=== PATIENT | male | born 1950 | race African-American/Black ===

== ENCOUNTER 2021-02-26 12:59 | Emergency (ER) | payer OTHER ==
--- OUTSIDE RECORDS SUMMARY | 2021-02-26 13:04 | XMS REPORT | Continuity of Care Document ---
:1950 Author Organization [facility] t Address [address] [place] [address] Care Team Providers Name Role Phone JILLIAN, A Attending Clinician Unavailable BRUNA Attending Clinician Unavailable ELI, A Attending Clinician Unavailable Doctor Unassigned, Name Attending Clinician Unavailable CROW Attending Clinician Unavailable Crow CARIAS Attending Clinician 2, Lab Attending Clinician Unavailable Rm, Surg Spec Procedure Attending Clinician Unavailable Irene HERZOG Attending Clinician Unavailable Bruna CARIAS Attending Clinician Yessica RINCON Attending Clinician Unavailable Lesa Attending Clinician CELY Attending Clinician Unavailable Payers Payer Name Policy Type Policy Number Effective Date Expiration Date S césar [facility] [id number] 2017 DUAL COMPLETE HMO 00:00:00 [facility] [id number] 2020 00:00:00 MEDICAID [place] [id number] 2016 00:00:00 [facility] [id number] 2019 DUAL COMPLETE 00:00:00 CHOICE Problems Condition Condition Condition Status Onset Resolution Last Treating Co mments Source Name Details Category Date Date Treatment Clinician Date Claudicati Claudicati Disease Active Overview : Univers on in on in 05-29 Added ity of peripheral peripheral 00:00: automatic [place] vascular vascular 00 ally from Med ical disease disease request Branch for surgery [id number] Allergies, Adverse Reactions, Alerts Allergy Allergy Status Severity Reaction(s) Onset Inactive Treating Comm ents Source Name Type Date Date Clinician NO KNOWN Drug Active [facility] ALLERGIE Class [facility] [place] [facility] Social History Social Habit Start Date Stop Date Quantity Comments Source Sex Assigned At [facility] Medical Branch Exposure to Not sure [facility] SARS-CoV-2 (event) Medica l Branch Tobacco use and 2020-02-03 2020-02-03 Never used [facility] exposure 00:00:00 00:00:00 Medical Branch Smoking Status Start Date Stop Date Source Light tobacco smoker 2020-02-03 00:00:00 [facility] Medications Ordered Filled Start Stop Current Ordering Indication Dosage Frequency Signature Comments Components Source Medication Medication Date Date Medication? Clinician (SIG) Name Name tamsulosin 2019-02- No [id number] .4mg Take 1 Univers 0.4 mg 24 03-07 capsule by ity of hr capsule 00:00: 05:59 mouth [place] 00 :00 daily for Medical 30 days. [place] tamsulosin 2019-02- No [id number] .4mg Take 1 Univers 0.4 mg 24 03-07 capsule by ity of hr capsule 00:00: 05:59 mouth [place] 00 :00 daily for Medical 30 days. Branch tamsulosin 2019-02- No [id number] .4mg Take 1 Univers 0.4 mg 24 03-07 capsule by ity of hr capsule 00:00: 05:59 mouth [place] 00 :00 daily for Medical 30 days. Branch tamsulosin 2019-02- No [id number] .4mg Take 1 Univers 0.4 mg 24 03-07 capsule by ity of hr capsule 00:00: 05:59 mouth [place] 00 :00 daily for Medical 30 days. Branch tamsulosin 2019-02- No [id number] .4mg Take 1 Univers 0.4 mg 24 03-07 capsule by ity of hr capsule 00:00: 05:59 mouth [place] 00 :00 daily for Medical 30 days. Branch tamsulosin 2019-02- No [id number] .4mg Take 1 Univers 0.4 mg 24 03-07 capsule by ity of hr capsule 00:00: 05:59 mouth [place] 00 :00 daily for Medical 30 days. Branch atorvastati 2019- Yes [id number] 20mg Take 1 Univers n 20 mg 3-06 tablet by ity of tablet 00:00: mouth at [place] 00 bedtime. Medical Branch clopidogreL 2020-0 Yes [id number] 75mg Take 1 Univers (PLAVIX) 75 3-06 tablet by ity of mg tablet 00:00: mouth [place] 00 daily. Medical Branch atorvastati 2020-0 Yes [id number] 20mg Take 1 Univers n 20 mg 3-06 tablet by ity of tablet 00:00: mouth at [place] 00 bedtime. Medical Branch clopidogreL 2020-0 Yes [id number] 75mg Take 1 Univers (PLAVIX) 75 3-06 tablet by ity of mg tablet 00:00: mouth [place] 00 daily. Medical Branch atorvastati 2020-0 Yes [id number] 20mg Take 1 Univers n 20 mg 3-06 tablet by ity of tablet 00:00: mouth at [place] 00 bedtime. Medical Branch clopidogreL 2020-0 Yes [id number] 75mg Take 1 Univers (PLAVIX) 75 3-06 tablet by ity of mg tablet 00:00: mouth [place] 00 daily. Medical Branch atorvastati 2020-0 Yes [id number] 20mg Take 1 Univers n 20 mg 3-06 tablet by ity of tablet 00:00: mouth at [place] 00 bedtime. Medical Branch clopidogreL 2020-0 Yes [id number] 75mg Take 1 Univers (PLAVIX) 75 3-06 tablet by ity of mg tablet 00:00: mouth [place] 00 daily. Medical Branch atorvastati 2020-0 Yes [id number] 20mg Take 1 Univers n 20 mg 3-06 tablet by ity of tablet 00:00: mouth at [place] bedtime. Medical Branch clopidogreL 2020-0 Yes [id number] 75mg Take 1 Univers (PLAVIX) 75 3-06 tablet by ity of mg tablet 00:00: mouth [place] 00 daily. Medical Branch atorvastati 2020-0 Yes [id number] 20mg Take 1 Univers n 20 mg 3-06 tablet by ity of tablet 00:00: mouth at [place] 00 bedtime. Medical Branch clopidogreL 2020-0 Yes [id number] 75mg Take 1 Univers (PLAVIX) 75 3-06 tablet by ity of mg tablet 00:00: mouth [place] 00 daily. Medical Branch atorvastati 2020-0 Yes [id number] 20mg Take 1 Univers n 20 mg 3-06 tablet by ity of tablet 00:00: mouth at [place] 00 bedtime. Medical Branch clopidogreL 2020-0 Yes [id number] 75mg Take 1 Univers (PLAVIX) 75 3-06 tablet by ity of mg tablet 00:00: mouth [place] 00 daily. Medical Branch atorvastati 2020-0 Yes [id number] 20mg Take 1 Univers n 20 mg 3-06 tablet by ity of tablet 00:00: mouth at [place] 00 bedtime. Medical Branch clopidogreL 2020-0 Yes [id number] 75mg Take 1 Univers (PLAVIX) 75 3-06 tablet by ity of mg tablet 00:00: mouth [place] 00 daily. Medical Branch atorvastati 2020-0 Yes [id number] 20mg Take 1 Univers n 20 mg 3-06 tablet by ity of tablet 00:00: mouth at [place] 00 bedtime. Medical Branch clopidogreL 2020-0 Yes [id number] 75mg Take 1 Univers (PLAVIX) 75 3-06 tablet by ity of mg tablet 00:00: mouth [place] 00 daily. Medical Branch atorvastati 2020-0 Yes [id number] 20mg Take 1 Univers n 20 mg 3-06 tablet by ity of tablet 00:00: mouth at [place] 00 bedtime. Medical Branch clopidogreL 2020-0 Yes [id number] 75mg Take 1 Univers (PLAVIX) 75 3-06 tablet by ity of mg tablet 00:00: mouth [place] 00 daily. Medical Branch atorvastati 2020-0 Yes [id number] 20mg Take 1 Univers n 20 mg 3-06 tablet by ity of tablet 00:00: mouth at [place] 00 bedtime. Medical Branch clopidogreL 2020-0 Yes [id number] 75mg Take 1 Univers (PLAVIX) 75 3-06 tablet by ity of mg tablet 00:00: mouth [place] 00 daily. Medical Branch atorvastati 2020-0 Yes [id number] 20mg Take 1 Univers n 20 mg 3-06 tablet by ity of tablet 00:00: mouth at [place] 00 bedtime. Medical Branch clopidogreL 2020-0 Yes [id number] 75mg Take 1 Univers (PLAVIX) 75 3-06 tablet by ity of mg tablet 00:00: mouth [place] 00 daily. [facility] Branch atorvastati 2020-0 Yes [id number] 20mg Take 1 Univers n 20 mg 3-06 tablet by ity of tablet 00:00: mouth at [place] 00 bedtime. Medical Branch clopidogreL 2020-0 Yes [id number] 75mg Take 1 Univers (PLAVIX) 75 3-06 tablet by ity of mg tablet 00:00: mouth [place] 00 daily. Medical Branch atorvastati 2020-0 Yes [id number] 20mg Take 1 Univers n 20 mg 3-06 tablet by ity of tablet 00:00: mouth at [place] 00 bedtime. Medical Branch clopidogreL 2020-0 Yes [id number] 75mg Take 1 Univers (PLAVIX) 75 3-06 tablet by ity of mg tablet 00:00: mouth [place] 00 daily. Medical Branch atorvastati 2020-0 Yes [id number] 20mg Take 1 Univers n 20 mg 3-06 tablet by ity of tablet 00:00: mouth at [place] 00 bedtime. Medical Branch clopidogreL 2020-0 Yes [id number] 75mg Take 1 Univers (PLAVIX) 75 3-06 tablet by ity of mg tablet 00:00: mouth [place] 00 daily. Medical Branch atorvastati 2020-0 Yes [id number] 20mg Take 1 Univers n 20 mg 3-06 tablet by ity of tablet 00:00: mouth at [place] 00 bedtime. Medical Branch clopidogreL 2020-0 Yes [id number] 75mg Take 1 Univers (PLAVIX) 75 3-06 tablet by ity of mg tablet 00:00: mouth [place] 00 daily. Medical Branch atorvastati 2020-0 Yes [id number] 20mg Take 1 Univers n 20 mg 3-06 tablet by ity of tablet 00:00: mouth at [place] 00 bedtime. Medical Branch clopidogreL 2020-0 Yes [id number] 75mg Take 1 Univers (PLAVIX) 75 3-06 tablet by ity of mg tablet 00:00: mouth [place] 00 daily. Medical Branch atorvastati 2020-0 Yes [id number] 20mg Take 1 Univers n 20 mg 3-06 tablet by ity of tablet 00:00: mouth at [place] 00 bedtime. Medical Branch clopidogreL 2020-0 Yes [id number] 75mg Take 1 Univers (PLAVIX) 75 3-06 tablet by ity of mg tablet 00:00: mouth [place] 00 daily. Medical Branch atorvastati 2020-0 Yes [id number] 20mg Take 1 Univers n 20 mg 3-06 tablet by ity of tablet 00:00: mouth at [place] 00 bedtime. Medical Branch clopidogreL 2020-0 Yes [id number] 75mg Take 1 Univers (PLAVIX) 75 3-06 tablet by ity of mg tablet 00:00: mouth [place] 00 daily. Medical Branch atorvastati 2019- Yes [id number] 20mg Take 1 Univers n 20 mg 3-06 tablet by ity of tablet 00:00: mouth at [place] 00 bedtime. Medical Branch clopidogreL 2019-0 Yes [id number] 75mg Take 1 Univers (PLAVIX) 75 3-06 tablet by ity of mg tablet 00:00: mouth [place] 00 daily. Medical Branch gabapentin 2019- Yes 600mg Take 600 Un eleni 600 mg 4-24 mg by ity of tablet 23:47: mouth [address] [place] [address] (two) Medical times Branch daily. cyanocobala 2019- Yes Take by Un eleni min, 4-24 mouth ity of vitamin 23:47: daily. [facility] Medical (VITAMIN Branch B12 ORAL) ferrous 2018-0 Yes Take by Univer s sulfate 4-24 mouth ity of (IRON ORAL) 23:47: daily. [facility] Medical Branch multivitami 2019-0 Yes 1{tbl} Take 1 Un eleni n tablet 4-24 tablet by ity of 23:47: mouth [place] [address] daily. Medical Branch METFORMIN 2018- Yes 500mg Take 500 Uni vers HCL 4-24 mg by ity of (METFORMIN 23:47: [place] (two) Medical times Branch daily. DULAGLUTIDE 2019- Yes 600mg inject 600 Univers (TRULICITY 4-24 mg under ity o f SC) 23:47: the skin 2 [place] [address] (two) Medical times Branch daily. insulin 2019-0 Yes 18U inject 18 Unive rs glargine,hu 4-24 Units ity of m.rec.anlog 23:47: under the [place] ([place] 36 skin Medical SOLOSTAR daily. Branch U-300 INSULIN SC) gabapentin 2019-0 Yes 600mg Take 600 Un eleni 600 mg 4-24 mg by ity of tablet 23:47: mouth 2 [place] [address] (two) Medical times Branch daily. cyanocobala 2019-0 Yes Take by Un eleni min, 4-24 mouth ity of vitamin 23:47: daily. [place] B Medical (VITAMIN Branch B12 ORAL) ferrous 2018-0 Yes Take by Univer s sulfate 4-24 mouth ity of (IRON ORAL) 23:47: daily. [address] multivitami 2019-0 Yes 1{tbl} Take 1 Un eleni n tablet 4-24 tablet by ity of 23:47: mouth [place] 36 daily. Medical Branch METFORMIN 2019-0 Yes 500mg Take 500 Uni vers HCL 4-24 mg by ity of (METFORMIN 23:47: [place] (two) Medical times Branch daily. DULAGLUTIDE 2019-0 Yes 600mg inject 600 Univers (TRULICITY 4-24 mg under ity o f SC) 23:47: the skin 2 [place] [address] (two) Medical times Branch daily. insulin 2019-0 Yes 18U inject 18 Unive rs glargine,hu 4-24 Units ity of m.rec.anlog 23:47: under the [place] ([place] 36 skin Medical SOLOSTAR daily. Branch U-300 INSULIN SC) gabapentin 2019-0 Yes 600mg Take 600 Un eleni 600 mg 4-24 mg by ity of tablet 23:47: mouth [address] [place] [address] ([facility]) Medical times [place] daily. cyanocobala 2019-0 Yes Take by Un eleni min, 4-24 mouth ity of vitamin 23:47: daily. [place] B-12, Medical (VITAMIN Branch B12 ORAL) ferrous 2019-0 Yes Take by Univer s sulfate 4-24 mouth ity of (IRON ORAL) 23:47: daily. [address] multivitami 2019-0 Yes 1{tbl} Take 1 Un eleni n tablet 4-24 tablet by ity of 23:47: mouth [place] [address] daily. Medical Branch METFORMIN 2019-0 Yes 500mg Take 500 Uni vers HCL 4-24 mg by ity of (METFORMIN 23:47: mouth [place] (two) Medical times Branch daily. DULAGLUTIDE 2019-0 Yes 600mg inject 600 Univers (TRULICITY 4-24 mg under ity o f SC) 23:47: the skin 2 [place] [address] (two) Medical times Branch daily. insulin 2019-0 Yes 18U inject 18 Unive rs glargine,hu 4-24 Units ity of m.rec.anlog 23:47: under the [place] ([place] 36 skin Medical SOLOSTAR daily. Branch U-300 INSULIN SC) gabapentin 2019-0 Yes 600mg Take 600 Un eleni 600 mg 4-24 mg by ity of tablet 23:47: mouth 2 [place] [address] ([facility]) Medical times Branch daily. cyanocobala 2019-0 Yes Take by Un eleni min, 4-24 mouth ity of vitamin 23:47: daily. [place] Medical (VITAMIN Branch B12 ORAL) ferrous 2018-0 Yes Take by Univer s sulfate 4-24 mouth ity of (IRON ORAL) 23:47: daily. [address] Branch multivitami 0 Yes 1{tbl} Take 1 Un eleni n tablet 4-24 tablet by ity of 23:47: mouth [place] 36 daily. Medical Branch METFORMIN 2018-0 Yes 500mg Take 500 Uni vers HCL 4-24 mg by ity of (METFORMIN 23:47: mouth [place] (two) Medical times Branch daily. DULAGLUTIDE 2018- Yes 600mg inject 600 Univers (TRULICITY 4-24 mg under ity o f SC) 23:47: the skin 2 [place] [address] ([facility]) Medical times Branch daily. insulin 2019-0 Yes 18U inject 18 Unive rs glargine,hu 4-24 Units ity of m.rec.anlog 23:47: under the [place] ([place] [address] skin Medical SOLOSTAR daily. Branch U-300 INSULIN SC) gabapentin 2018-0 Yes 600mg Take 600 Un eleni 600 mg 4-24 mg by ity of tablet 23:47: mouth 2 [place] [address] ([facility]) Medical times [place] daily. cyanocobala 2019-0 Yes Take by Un eleni min, 4-24 mouth ity of vitamin 23:47: daily. [facility] Medical (VITAMIN Branch B12 ORAL) ferrous 2019-0 Yes Take by Univer s sulfate 4-24 mouth ity of (IRON ORAL) 23:47: daily. [address] multivitami 2019-0 Yes 1{tbl} Take 1 Un eleni n tablet 4-24 tablet by ity of 23:47: mouth [place] 36 daily. Medical Branch METFORMIN 2019-0 Yes 500mg Take 500 Uni vers HCL 4-24 mg by ity of (METFORMIN 23:47: mouth [place] (two) Medical times Branch daily. DULAGLUTIDE 2019-0 Yes 600mg inject 600 Univers (TRULICITY 4-24 mg under ity o f SC) 23:47: the skin 2 [place] [address] ([facility]) Medical times Branch daily. insulin 2019-0 Yes 18U inject 18 Unive rs glargine,hu 4-24 Units ity of m.rec.anlog 23:47: under the [place] ([place] 36 skin Medical SOLOSTAR daily. Branch U-300 INSULIN SC) gabapentin 2019-0 Yes 600mg Take 600 Un eleni 600 mg 4-24 mg by ity of tablet 23:47: mouth 2 [place] [address] (two) Medical times Branch daily. cyanocobala 2019-0 Yes Take by Un eleni min, 4-24 mouth ity of vitamin 23:47: daily. [place] Medical (VITAMIN Branch B12 ORAL) ferrous 2019-0 Yes Take by Univer s sulfate 4-24 mouth ity of (IRON ORAL) 23:47: daily. [address] multivitami 2019-0 Yes 1{tbl} Take 1 Un eleni n tablet 4-24 tablet by ity of 23:47: mouth [place] [address] daily. Medical Branch METFORMIN 2019-0 Yes 500mg Take 500 Uni vers HCL 4-24 mg by ity of (METFORMIN 23:47: [place] ([facility]) Medical times [place] daily. DULAGLUTIDE 2019-0 Yes 600mg inject 600 Univers (TRULICITY 4-24 mg under ity o f SC) 23:47: the skin 2 [place] [address] ([facility]) Medical times Branch daily. insulin 2019-0 Yes 18U inject 18 Unive rs glargine,hu 4-24 Units ity of m.rec.anlog 23:47: under the [place] ([place] 36 skin Medical SOLOSTAR daily. Branch U-300 INSULIN SC) gabapentin 2019-0 Yes 600mg Take 600 Un eleni 600 mg 4-24 mg by ity of tablet 23:47: mouth 2 [place] [address] ([facility]) Medical times Branch daily. cyanocobala 2019-0 Yes Take by Un eleni min, 4-24 mouth ity of vitamin 23:47: daily. [place] B Medical (VITAMIN Branch B12 ORAL) ferrous 2019-0 Yes Take by Univer s sulfate 4-24 mouth ity of (IRON ORAL) 23:47: daily. [address] multivitami 2019-0 Yes 1{tbl} Take 1 Un eleni n tablet 4-24 tablet by ity of 23:47: mouth [place] 36 daily. Medical Branch METFORMIN 2019-0 Yes 500mg Take 500 Uni vers HCL 4-24 mg by ity of (METFORMIN 23:47: mouth [place] 36 (two) Medical times Branch daily. DULAGLUTIDE 2019-0 Yes 600mg inject 600 Univers (TRULICITY 4-24 mg under ity o f SC) 23:47: the skin 2 [place] [address] (two) Medical times Branch daily. insulin 2019-0 Yes 18U inject 18 Unive rs glargine,hu 4-24 Units ity of m.rec.anlog 23:47: under the [place] ([place] 36 skin Medical SOLOSTAR daily. Branch U-300 INSULIN SC) gabapentin 2019-0 Yes 600mg Take 600 Un eleni 600 mg 4-24 mg by ity of tablet 23:47: mouth 2 [place] [address] (two) Medical times Branch daily. cyanocobala 2019-0 Yes Take by Un eleni min, 4-24 mouth ity of vitamin 23:47: daily. [place] B-12, Medical (VITAMIN Branch B12 ORAL) ferrous 2018-0 Yes Take by Univer s sulfate 4-24 mouth ity of (IRON ORAL) 23:47: daily. [address] Branch multivitami 2019-0 Yes 1{tbl} Take 1 Un eleni n tablet 4-24 tablet by ity of 23:47: mouth [place] 36 daily. Medical Branch METFORMIN 2019-0 Yes 500mg Take 500 Uni vers HCL 4-24 mg by ity of (METFORMIN 23:47: mouth [place] 36 (two) Medical times Branch daily. DULAGLUTIDE 2019-0 Yes 600mg inject 600 Univers (TRULICITY 4-24 mg under ity o f SC) 23:47: the skin 2 [place] [address] (two) Medical times Branch daily. insulin 2019-0 Yes 18U inject 18 Unive rs glargine,hu 4-24 Units ity of m.rec.anlog 23:47: under the [place] ([place] 36 skin Medical SOLOSTAR daily. Branch U-300 INSULIN SC) gabapentin 2019-0 Yes 600mg Take 600 Un eleni 600 mg 4-24 mg by ity of tablet 23:47: mouth 2 [place] [address] (two) Medical times Branch daily. cyanocobala 2019-0 Yes Take by Un eleni min, 4-24 mouth ity of vitamin 23:47: daily. [place] Medical (VITAMIN Branch B12 ORAL) ferrous 2018-0 Yes Take by Univer s sulfate 4-24 mouth ity of (IRON ORAL) 23:47: daily. [address] Branch multivitami 0 Yes 1{tbl} Take 1 Un eleni n tablet 4-24 tablet by ity of 23:47: mouth [place] 36 daily. Medical Branch METFORMIN 2019- Yes 500mg Take 500 Uni vers HCL 4-24 mg by ity of (METFORMIN 23:47: mouth [place] (two) Medical times Branch daily. DULAGLUTIDE Yes 600mg inject 600 Univers (TRULICITY 4-24 mg under ity o f SC) 23:47: the skin 2 [place] [address] (two) Medical times Branch daily. insulin 2018-0 Yes 18U inject 18 Unive rs glargine,hu 4-24 Units ity of m.rec.anlog 23:47: under the [place] ([facility] 36 skin Medical SOLOSTAR daily. Branch U-300 INSULIN SC) gabapentin 2018-0 Yes 600mg Take 600 Un eleni 600 mg 4-24 mg by ity of tablet 23:47: mouth 2 [place] [address] (two) Medical times Branch daily. cyanocobala 0 Yes Take by Un eleni min, 4-24 mouth ity of vitamin 23:47: daily. [facility] Medical (VITAMIN Branch B12 ORAL) ferrous 2018-0 Yes Take by Univer s sulfate 4-24 mouth ity of (IRON ORAL) 23:47: daily. [address] Branch multivitami 2019-0 Yes 1{tbl} Take 1 Un eleni n tablet 4-24 tablet by ity of 23:47: mouth [place] [address] daily. Medical Branch METFORMIN 2019-0 Yes 500mg Take 500 Uni vers HCL 4-24 mg by ity of (METFORMIN 23:47: mouth [place] (two) Medical times Branch daily. DULAGLUTIDE 2019-0 Yes 600mg inject 600 Univers (TRULICITY 4-24 mg under ity o f SC) 23:47: the skin 2 [place] [address] (two) Medical times Branch daily. METFORMIN 2019-0 Yes 500mg Take 500 Uni vers HCL 4-24 mg by ity of (METFORMIN 23:47: mouth 2 [place] (two) Medical times Branch daily. insulin 2019-0 Yes 18U inject 18 Unive rs glargine,hu 4-24 Units ity of m.rec.anlog 23:47: under the [place] ([place] 36 skin Medical SOLOSTAR daily. Branch U-300 INSULIN SC) gabapentin 2019-0 Yes 600mg Take 600 Un eleni 600 mg 4-24 mg by ity of tablet 23:47: mouth 2 [place] [address] (two) Medical times Branch daily. cyanocobala 2019-0 Yes Take by Un eleni min, 4-24 mouth ity of vitamin 23:47: daily. [facility], Medical (VITAMIN Branch B12 ORAL) ferrous 2019-0 Yes Take by Univer s sulfate 4-24 mouth ity of (IRON ORAL) 23:47: daily. [place] [address] Medical Branch multivitami 2019-0 Yes 1{tbl} Take 1 Un eleni n tablet 4-24 tablet by ity of 23:47: mouth [place] [address] daily. Medical Branch DULAGLUTIDE 2019-0 Yes 600mg inject 600 Univers (TRULICITY 4-24 mg under ity o f SC) 23:47: the skin 2 [place] [address] (two) Medical times Branch daily. METFORMIN 2019-0 Yes 500mg Take 500 Uni vers HCL 4-24 mg by ity of (METFORMIN 23:47: mouth [place] (two) Medical times Branch daily. DULAGLUTIDE 2019-0 Yes 600mg inject 600 Univers (TRULICITY 4-24 mg under ity o f SC) 23:47: the skin 2 [place] [address] (two) Medical times Branch daily. insulin 2019-0 Yes 18U inject 18 Unive rs glargine,hu 4-24 Units ity of m.rec.anlog 23:47: under the [place] ([place] 36 skin Medical SOLOSTAR daily. Branch U-300 INSULIN SC) insulin 2019-0 Yes 18U inject 18 Unive rs glargine,hu 4-24 Units ity of m.rec.anlog 23:47: under the [place] ([place] 36 skin Medical SOLOSTAR daily. Branch U-300 INSULIN SC) gabapentin 2019-0 Yes 600mg Take 600 Un eleni 600 mg 4-24 mg by ity of tablet 23:47: mouth 2 [place] [address] (two) Medical times Branch daily. cyanocobala 2019-0 Yes Take by Un eleni min, 4-24 mouth ity of vitamin 23:47: daily. [place] Medical (VITAMIN Branch B12 ORAL) ferrous 2019-0 Yes Take by Univer s sulfate 4-24 mouth ity of (IRON ORAL) 23:47: daily. [address] Branch multivitami 2019-0 Yes 1{tbl} Take 1 Un eleni n tablet 4-24 tablet by ity of 23:47: mouth [place] [address] daily. Medical Branch gabapentin 2019-0 Yes 600mg Take 600 Un eleni 600 mg 4-24 mg by ity of tablet 23:47: mouth 2 [place] [address] ([facility]) Medical times [place] daily. METFORMIN 2019-0 Yes 500mg Take 500 Uni vers HCL 4-24 mg by ity of (METFORMIN 23:47: mouth 2 [facility] [place] [facility] ([facility]) Medical times [place] daily. DULAGLUTIDE 2019-0 Yes 600mg inject 600 Univers (TRULICITY 4-24 mg under ity o f SC) 23:47: the skin 2 [place] [address] ([facility]) Medical times [place] daily. insulin 2019-0 Yes 18U inject 18 Unive rs glargine,hu 4-24 Units ity of m.rec.anlog 23:47: under the [place] ([place] 36 skin Medical SOLOSTAR daily. Branch U-300 INSULIN SC) gabapentin 2019-0 Yes 600mg Take 600 Un eleni 600 mg 4-24 mg by ity of tablet 23:47: mouth 2 [place] [address] ([facility]) Medical times [place] daily. cyanocobala 2019-0 Yes Take by Un eleni min, 4-24 mouth ity of vitamin 23:47: daily. [place] Medical (VITAMIN Branch B12 ORAL) ferrous 2019-0 Yes Take by Univer s sulfate 4-24 mouth ity of (IRON ORAL) 23:47: daily. [address] multivitami 2019-0 Yes 1{tbl} Take 1 Un eleni n tablet 4-24 tablet by ity of 23:47: mouth [place] 36 daily. Medical Branch cyanocobala 2018- Yes Take by Un eleni min, 4-24 mouth ity of vitamin 23:47: daily. [facility] Medical (VITAMIN Branch B12 ORAL) METFORMIN 2019-0 Yes 500mg Take 500 Uni vers HCL 4-24 mg by ity of (METFORMIN 23:47: mouth [place] (two) Medical times Branch daily. DULAGLUTIDE [id number] Yes 600mg inject 600 Univers (TRULICITY 4-24 mg under ity o f SC) 23:47: the skin 2 [place] [address] (two) Medical times Branch daily. insulin 2019-0 Yes 18U inject 18 Unive rs glargine,hu 4-24 Units ity of m.rec.anlog 23:47: under the [place] ([place] 36 skin Medical SOLOSTAR daily. Branch U-300 INSULIN SC) gabapentin Yes 600mg Take 600 Un eleni 600 mg 4-24 mg by ity of tablet 23:47: mouth 2 [place] [address] (two) Medical times Branch daily. cyanocobala Yes Take by Un eleni min, 4-24 mouth ity of vitamin 23:47: daily. [facility] Medical (VITAMIN Branch B12 ORAL) ferrous 0 Yes Take by Univer s sulfate 4-24 mouth ity of (IRON ORAL) 23:47: daily. [address] Branch ferrous 0 Yes Take by Univer s sulfate 4-24 mouth ity of (IRON ORAL) 23:47: daily. [address] Branch multivitami 2019-0 Yes 1{tbl} Take 1 Un eleni n tablet 4-24 tablet by ity of 23:47: mouth [place] 36 daily. Medical Branch METFORMIN 2019-0 Yes 500mg Take 500 Uni vers HCL 4-24 mg by ity of (METFORMIN 23:47: [place] (two) Medical times Branch daily. multivitami 2019-0 Yes 1{tbl} Take 1 Un eleni n tablet 4-24 tablet by ity of 23:47: mouth [place] 36 daily. Medical Branch DULAGLUTIDE 2019-0 Yes 600mg inject 600 Univers (TRULICITY 4-24 mg under ity o f [place]) 23:47: the skin 2 [place] [address] ([facility]) Medical times Branch daily. insulin 2019-0 Yes 18U inject 18 Unive rs glargine,hu 4-24 Units ity of m.rec.anlog 23:47: [place] the [place] (UJEO 36 skin Medical SOLOSTAR daily. Branch U-300 INSULIN SC) gabapentin 2019-0 Yes 600mg Take 600 Un eleni 600 mg 4-24 mg by ity of tablet 23:47: mouth 2 [place] [address] ([facility]) Medical times Branch daily. cyanocobala 2019-0 Yes Take by Un eleni min, 4-24 mouth ity of vitamin 23:47: daily. [facility] Medical (VITAMIN Branch B12 ORAL) ferrous 2019-0 Yes Take by Univer s sulfate 4-24 mouth ity of (IRON ORAL) 23:47: daily. [address] multivitami 0 Yes 1{tbl} Take 1 Un eleni n tablet 4-24 tablet by ity of 23:47: mouth [place] [address] daily. Medical Branch METFORMIN 2019-0 Yes 500mg Take 500 Uni vers HCL 4-24 mg by ity of (METFORMIN [place]:47: [place] ([facility]) Medical times [place] daily. DULAGLUTIDE 2019-0 Yes 600mg inject 600 Univers (TRULICITY 4-24 mg under ity o f [place]) 23:47: the skin 2 [place] [address] ([facility]) Medical times Branch daily. insulin 2019-0 Yes 18U inject 18 Unive rs glargine,hu 4-24 Units ity of m.rec.anlog 23:47: [place] the [place] ([place] 36 skin Medical SOLOSTAR daily. Branch U-300 INSULIN SC) gabapentin 2019-0 Yes 600mg Take 600 Un eleni 600 mg 4-24 mg by ity of tablet 23:47: mouth 2 [place] [address] ([facility]) Medical times [place] daily. cyanocobala 2019-0 Yes Take by Un eleni min, 4-24 mouth ity of vitamin 23:47: daily. [place] [address] Medical (VITAMIN Branch B12 ORAL) ferrous 2019-0 Yes Take by Univer s sulfate 4-24 mouth ity of (IRON ORAL) 23:47: daily. [address] multivitami 2019-0 Yes 1{tbl} Take 1 Un eleni n tablet 4-24 tablet by ity of 23:47: mouth [place] 36 daily. Medical Branch METFORMIN 2019-0 Yes 500mg Take 500 Uni vers HCL 4-24 mg by ity of (METFORMIN 23:47: [place] 36 (two) Medical times Branch daily. DULAGLUTIDE 2019-0 Yes 600mg inject 600 Univers (TRULICITY 4-24 mg under ity o f [place]) 23:47: the skin 2 [place] 36 (two) Medical times Branch daily. insulin 2019-0 Yes 18U inject 18 Unive rs glargine,hu 4-24 Units ity of m.rec.anlog 23:47: under the [place] (TOUJEO 36 skin Medical SOLOSTAR daily. Branch U-300 INSULIN [place]) gabapentin 2019-0 Yes 600mg Take 600 Un eleni 600 mg 4-24 mg by ity of tablet 23:47: mouth 2 [place] [address] (two) Medical times Branch daily. cyanocobala 2019-0 Yes Take by Un eleni min, 4-24 mouth ity of vitamin 23:47: daily. [place] B-12, 36 Medical (VITAMIN Branch B12 ORAL) ferrous 2019-0 Yes Take by Univer s sulfate 4-24 mouth ity of (IRON ORAL) 23:[place] multivitami 2019-0 Yes 1{tbl} Take 1 Un eleni n tablet 4-24 tablet by ity of 23:47: mouth [place] 36 daily. Medical Branch METFORMIN 2019-0 Yes 500mg Take 500 Uni vers HCL 4-24 mg by ity of (METFORMIN 23:47: [place] 36 (two) Medical times Branch daily. DULAGLUTIDE 2019-0 Yes 600mg inject 600 Univers (TRULICITY 4-24 mg under ity o f [place]) 23:47: the skin 2 [place] 36 (two) Medical times Branch daily. insulin 2019-0 Yes 18U inject 18 Unive rs glargine,hu 4-24 Units ity of m.rec.anlog 23:47: under the [place] (TOUJEO 36 skin Medical SOLOSTAR daily. Branch U-300 INSULIN SC) gabapentin 2019-0 Yes 600mg Take 600 Un eleni 600 mg 4-24 mg by ity of tablet 23:47: mouth 2 [place] 36 (two) Medical times Branch daily. cyanocobala 2019-0 Yes Take by Un eleni min, 4-24 mouth ity of vitamin 23:47: daily. [facility] Medical (VITAMIN Branch B12 ORAL) ferrous 2018-0 Yes Take by Univer s sulfate 4-24 mouth ity of (IRON ORAL) 23:47: daily. [address] Branch multivitami 2019 Yes 1{tbl} Take 1 Un eleni n tablet 4-24 tablet by ity of 23:47: mouth [place] daily. Medical Branch METFORMIN 2019-0 Yes 500mg Take 500 Uni vers HCL 4-24 mg by ity of (METFORMIN 23:47: [place] 36 (two) Medical times Branch daily. DULAGLUTIDE 2019-0 Yes 600mg inject 600 Univers (TRULICITY 4-24 mg under ity o f [place]) 23:47: the skin 2 [place] [address] ([facility]) Medical times Branch daily. insulin 2019-0 Yes 18U inject 18 Unive rs glargine,hu 4-24 Units ity of m.rec.anlog 23:47: under the [place] [address] skin Medical SOLOSTAR daily. Branch U-300 INSULIN [place]) gabapentin 2018-0 Yes 600mg Take 600 Un eleni 600 mg 4-24 mg by ity of tablet 23:47: mouth 2 [place] [address] ([facility]) Medical times [place] daily. cyanocobala 0 Yes Take by Un eleni min, 4-24 mouth ity of vitamin 23:47: daily. [facility] Medical (VITAMIN Branch B12 ORAL) ferrous 2018-0 Yes Take by Univer s sulfate 4-24 mouth ity of (IRON ORAL) 23:47: daily. [address] Branch multivitami [address] Yes 1{tbl} Take 1 Un eleni n tablet 4-24 tablet by ity of 23:47: mouth [place] [address] daily. Medical Branch METFORMIN 2019-0 Yes 500mg Take 500 Uni vers HCL 4-24 mg by ity of (METFORMIN 23:47: [place] 36 (two) Medical times Branch daily. DULAGLUTIDE 2019-0 Yes 600mg inject 600 Univers (TRULICITY 4-24 mg under ity o f [place]) 23:47: the skin 2 [place] [address] (two) Medical times Branch daily. insulin 2019-0 Yes 18U inject 18 Unive rs glargine,hu 4-24 Units ity of m.rec.anlog 23:47: under the [place] (TOU[place] 36 skin Medical SOLOSTAR daily. Branch U-300 INSULIN SC) gabapentin 2019-0 Yes 600mg Take 600 Un eleni 600 mg 4-24 mg by ity of tablet 23:47: mouth 2 [place] [address] ([facility]) Medical times Branch daily. cyanocobala 2019-0 Yes Take by Un eleni min, 4-24 mouth ity of vitamin 23:47: daily. [facility] Medical (VITAMIN Branch B12 ORAL) ferrous 2019-0 Yes Take by Univer s sulfate 4-24 mouth ity of (IRON ORAL) 23:47: daily. [address] multivitami 2019-0 Yes 1{tbl} Take 1 Un eleni n tablet 4-24 tablet by ity of 23:47: mouth [place] [address] daily. Medical Branch METFORMIN 2019-0 Yes 500mg Take 500 Uni vers HCL 4-24 mg by ity of (METFORMIN 23:47: mouth 2 [facility] [place] [facility]) ([facility]) Medical times [place] daily. DULAGLUTIDE 2019-0 Yes 600mg inject 600 Univers (TRULICITY 4-24 mg under ity o f [place]) 23:47: the skin 2 [place] [address] ([facility]) Medical times [place] daily. insulin 2019-0 Yes 18U inject 18 Unive rs glargine,hu 4-24 Units ity of m.rec.anlog 23:47: under the [place] ([facility] 36 skin Medical SOLOSTAR daily. Branch U-300 INSULIN SC) gabapentin 2019-0 Yes 600mg Take 600 Un eleni 600 mg 4-24 mg by ity of tablet 23:47: mouth 2 [place] [address] ([facility]) Medical times [place] daily. cyanocobala 2019-0 Yes Take by Un eleni min, 4-24 mouth ity of vitamin 23:47: daily. [facility] Medical (VITAMIN Branch B12 ORAL) ferrous 2019-0 Yes Take by Univer s sulfate 4-24 mouth ity of (IRON ORAL) 23:47: daily. [address] multivitami 2019-0 Yes 1{tbl} Take 1 Un eleni n tablet 4-24 tablet by ity of 23:47: mouth [place] 36 daily. Medical Branch METFORMIN Yes 500mg Take 500 Uni vers HCL 4-24 mg by ity of (METFORMIN 23:47: [place] 36 (two) Medical times Branch daily. DULAGLUTIDE Yes 600mg inject 600 Univers (TRULICITY 4-24 mg under ity o f [place]) 23:47: the skin 2 [place] 36 (two) Medical times Branch daily. insulin Yes 18U inject 18 Unive rs glargine,hu 4-24 Units ity of m.rec.anlog 23:47: under the [place] ([place] 36 skin Medical SOLOSTAR daily. Branch U-300 INSULIN SC) clopidogrel Yes [id number] 75mg Take 1 Univers (PLAVIX) 75 4-24 tablet by ity of mg tablet 00:00: mouth [place] 00 daily. Medical Branch clopidogrel Yes [id number] 75mg Take 1 Univers (PLAVIX) 75 4-24 tablet by ity of mg tablet 00:00: mouth [place] 00 daily. Medical Branch clopidogrel 2020- No [id number] 75mg Take 1 Univers (PLAVIX) 75 4-24 03-06 tablet by it y of mg tablet 00:00: 00:00 mouth [place] 00 :00 daily. Medical Branch clopidogrel 2020- No [id number] 75mg Take 1 Univers (PLAVIX) 75 4-24 03-06 tablet by it y of mg tablet 00:00: 00:00 mouth [place] 00 :00 daily. Medical Branch Vital Signs Vital Name Observation Time Observation Value Comments Source Systolic blood 2020-02-03 21:32:00 132 mm[Hg] Univer sity of pressure [facility] Diastolic blood 2020-02-03 21:32:00 79 mm[Hg[facility] Heart rate 2020-02-03 21:32:00 114 /min [facility] Body temperature 2020-02-03 21:32:00 36.72 Genevieve [facility] Respiratory rate 2020-02-03 21:32:00 18 /min [facility] Body height 2020-02-03 21:32:00 154.9 cm [facility] Body weight 2020-02-03 21:32:00 64.411 kg [facility] [place] [facility] BMI 2020-02-03 21:32:00 26.83 kg/m2 [facility] [place] [facility] Systolic blood 2020-02-03 21:32:00 132 mm[Hg] Univer sity of pressure [place] [facility] Diastolic blood 2020-02-03 21:32:00 79 mm[Hg] Unive rsity of pressure [place] [facility] Heart rate 2020-02-03 21:32:00 114 /min [facility] [place] [facility] Body temperature 2020-02-03 21:32:00 36.72 Genevieve [facility] [place] [facility] Respiratory rate 2020-02-03 21:32:00 18 /min [facility] [place] [facility] Body height 2020-02-03 21:32:00 154.9 cm [facility] [place] [facility] Body weight 2020-02-03 21:32:00 64.411 kg [facility] [place] [facility] BMI 2020-02-03 21:32:00 26.83 kg/m2 [facility] [place] [facility] Systolic blood 2020-01-06 19:24:00 145 mm[Hg] Univer sity of pressure [place] [facility] Diastolic blood 2020-01-06 19:24:00 80 mm[Hg] Unive rsity of pressure [place] [facility] Heart rate 2020-01-06 19:24:00 97 /min [facility] [place] [facility] Body temperature 2020-01-06 19:15:00 36.17 Genevieve [facility] [place] [facility] Respiratory rate 2020-01-06 19:15:00 18 /min [facility] [place] [facility] Body weight 2020-01-06 19:15:00 63.866 kg [facility] [place] [facility] BMI 2020-01-06 19:15:00 26.60 kg/m2 [facility] [place] [facility] Systolic blood 2019-12-09 14:33:00 161 mm[Hg] Univer sity of pressure [place] [facility] Diastolic blood 2019-12-09 14:33:00 83 mm[Hg] Unive rsity of pressure [place] [facility] Heart rate 2019-12-09 14:31:00 84 /min [facility] [place] [facility] Body weight 2019-12-09 14:31:00 63.141 kg [facility] [place] [facility] BMI 2019-12-09 14:31:00 26.30 kg/m2 [facility] [place] [facility] Systolic blood 2019-11-19 14:29:00 149 mm[Hg] Univer sity of pressure [facility] [place] [facility] Diastolic blood 2019-11-19 14:29:00 89 mm[Hg] Unive rsity of pressure [facility] [place] [facility] Heart rate 2019-11-19 14:29:00 8 /min Universi ty of [facility] Body temperature 2019-11-19 14:29:00 36.56 Genevieve Univ ersity of [facility] [place] [facility] Respiratory rate 2019-11-19 14:29:00 18 /min Univ ersity of [facility] [place] Branch Body weight 2019-11-19 14:29:00 62.869 kg Universi ty of [facility] [place] Branch BMI 2019-11-19 14:29:00 26.19 kg/m2 Universi ty of [facility] [place] [facility] Systolic blood 2019-04-26 16:07:00 133 mm[Hg] Univer sity of pressure [facility] Diastolic blood 2019-04-26 16:07:00 80 mm[Hg] Unive rsity of pressure [facility] Heart rate 2019-04-26 16:07:00 80 /min [facility] [place] [facility] [place] Body temperature 2019-04-26 16:07:00 36.83 Genevieve Univ ersity of [facility] [place] Branch Respiratory rate 2019-04-26 16:07:00 20 /min Univ ersity of [facility] Body height 2019-04-26 16:07:00 154.9 cm [facility] [place] [facility] [place] Body weight 2019-04-26 16:07:00 61.236 kg [facility] [place] [facility] BMI 2019-04-26 16:07:00 25.51 kg/m2 Universi ty of [facility] Oxygen saturation in 2019-04-26 16:07:00 98 /min [facility] Arterial blood by [facility] Pulse oximetry Branch Procedures Procedure Date / Time Performing Clinician Source Performed REFERRAL- REQUEST/RESPONSE 2020-03-16 06:01:00 Doctor Unassigned , [facility] Branch POCT URINALYSIS AUTO 2020-02-03 21:34:00 Odalis Maria [facility] POCT URINALYSIS AUTO 2020-01-06 19:19:00 Odalis Maria [facility] DISCLOSURE AND CONSENT, 2020-01-06 06:01:00 [facility] [place] [facility] PROCEDURES SCANNED LAB RESULTS 2019-12-09 05:01:00 Doctor UnassKieran magdaleno [facility] [place] [facility] ASSIGNMENT OF BENEFITS 2019-10-25 14:30:37 Doctor [facility] [place] [facility] REFERRAL- REQUEST/RESPONSE 2019-10-22 05:01:00 Doctor Maria Esssharla , [facility] [place] [facility] NO SHOW OR MISSED 2018-10-26 14:15:17 Doctor Unasssharla [facility] APPOINTMENT POLICY [place] [facility] ACKNOWLEDGEMENT Encounters Start End Encounter Admission Attending Care Care Encounter Source Date/Time Date/Time Type Type Clinicians Facility Department ID 2020-06-02 2020-06-02 Outpatient Kika WALSH [facility] [id number] Univers 16:30:00 16:30:00 ALISON [id number] [facility] 2020-06-02 2020-06-02 Outpatient R JILLIAN [facility] [id number] Univers 16:30:00 16:30:00 ALISON [facility] 2020-05-22 2020-05-22 Outpatient R BRUNA [facility] [id number] Univers 08:30:00 08:30:00 LINDA [id number] gino o [facility] [place] [facility] 2020-05-22 2020-05-22 Outpatient R BRUNA [facility] [id number] Univers 08:30:00 08:30:00 LINDA christian o f [facility] 2020-05-20 2020-05-20 Outpatient R ELI [facility] [id number] Univers 14:30:00 14:30:00 [facility] [id number] [facility]-05-20 2020-05-20 Outpatient R ELI [facility] [id number] Univers 14:30:00 14:30:00 ZACHARY [facility] 2020-05-18 2020-05-18 Outpatient R [facility] [id number] Univers 10:00:00 10:00:00 [id number] [facility] 2020-05-18 2020-05-18 Outpatient R BRUNA, [facility] [id number] Univers 09:00:00 09:00:00 LINDA gino espinal christina [facility] 2020-05-18 2020-05-18 Outpatient R BRUNA, [facility] [id number] Univers 00:00:00 00:00:00 LINDA gino espinal christina [facility] 2020-05-13 2020-05-13 Outpatient R ELI [facility] [id number] Univers 15:30:00 15:30:00 ZACHARY [id number] [facility] 2020-05-13 2020-05-13 [facility] [id number] Univers 15:30:00 15:30:00 ZACHARY [facility] 2020-05-04 2020-05-04 Outpatient R ELI [facility] [id number] Univers 13:30:00 13:30:00 ZACHARY [id number] [facility] 2020-05-04 2020-05-04 [facility] [id number] Univers 13:30:00 13:30:00 [facility] 2020-03-16 2020-03-16 Orders Doctor JEFF 1.2.840.114 [id number] Univers 00:00:00 00:00:00 Only Unassigned, ZION 350.1.13.10 ity of [place] [facility] [id number] Moi as [phone] [address] 2020-02-10 2020-02-10 [facility] [id number] Univers 14:00:00 14:00:00 [facility] [id number] [facility] 2020-02-10 2020-02-10 [facility] [id number] Univers 00:00:00 [facility]:00[facility]00 [facility] 2020-02-03 2020-02-03 [facility] 1.2.840.114 [id number] 15:06:44 15:40:06 Visit Odalis Heart [id number] [place] [id number] Professio [phone] [address] 2020-02-03 2020-02-03 Office [facility] 1.2.840.114 [id number] Univers 15:06:44 15:40:06 Visit Odalis [place] [id number] i [id number] Profess[place] [phone] [place] dical [facility] 204 [facility] 2020-02-03 2020-02-03 Outpatient R CROW [facility] [id number] Univers 15:30:00 15:30:00 [facility] [id number] ity [facility] 2020-02-03 2020-02-03 Outpatient R CROW [facility] [id number] Univers 15:30:00 15:30:00 [facility] 2020-01-06 2020-01-06 Surgical Resident 2, Adc Lab [facility] 1.2.840.114 [id number] Univers 14:59:24 15:14:24 Visit JoshOdalis rojas [place] [id number] ity [facility] [id number] Profess[place] [phone] Va dic[address] 2020-01-06 2020-01-06 Office Crow [facility] 1.2.840.114 [id number] Univers 13:01:50 14:38:55 Visit , Adc Surg Spec Procedure [place] 3 50.1.13.10 ity [facility] [id number] Profess[place] [phone] [place] dical [address] 2020-01-06 2020-01-06 Outpatient R CROW [facility] [id number] Univers 13:30:00 13:30:00 [facility] [id number] ity [facility] 2020-01-06 2020-01-06 [facility] [id number] Univers 13:30:00 13:30:00 [facility] 2020-01-06 2020-01-06 Orders Doctor AGUILAR 1.2.840.114 [id number] Univers 00:00:00 00:00:00 Only Unassigned, ZION 350.1.13.10 ity of [place] [facility] [id number] Moi as [phone] [address] 2019-12-16 2019-12-16 Outpatient CROW [facility] [id number] Univers 14:20:00 14:20:00 [id number] ity of [facility] 2019-12-16 2019-12-16 Outpatient R CROW [facility] [id number] Univers 00:00:00 00:00:00 ODALIS ity [facility] 2019-12-12 2019-12-12 [facility] 1.2.840.114 [id number] Univers 00:00:00 00:00:00 Odalis Sly 350.1.13.10 i [id number] [phone] [place] dical nal 204 [facility] 2019-12-09 2019-12-09 Surgical Resident 2, Adc Lab [facility] 1.2.840.114 [id number] Univers 10:23:48 10:38:48 Visit Odalis Maria 350.1.13.10 ity [place] [id number] Profess[place] [phone] Va dical nal 353 [facility] 2019-12-09 2019-12-09 Office [facility] 1.2.840.114 [id number] Univers 08:51:27 10:01:32 Visit Odalis Heart 350.1.13.10 i ty [place] [id number] [phone] [place] dical nal 204 [facility] 2019-12-09 2019-12-09 Outpatient R CROW [facility] [id number] Univers 09:30:00 09:30:00 [id number] ity of [facility] 2019-12-09 2019-12-09 [facility] [id number] Univers 09:30:00 09:30:00 ODALIS ity [facility] 2019-12-09 2019-12-09 Orders Doctor AGUILAR 1.2.840.114 [id number] Univers 00:00:00 00:00:00 Only Unassigned, ZION 350.1.13.10 ity of [facility] [id number] Moi as [phone] [address] 2019-11-29 2019-11-29 [facility] [id number] Univers 08:30:00 08:30:00 [facility]INO [facility] 2019-11-29 2019-11-29 [facility] [id number] Univers 08:30:00 08:30:00 CATALINO [facility] 2019-11-19 2019-11-19 Office [facility] 1.2.840.114 [id number] Univers 09:02:22 10:06:49 Visit Linda Heart 350.1.13.10 [id number] [phone] Va dical [address] 2019-11-19 2019-11-19 [facility] [id number] Univers 09:30:00 09:30:00 LINDA [id number] gino espinal [facility] [place] [facility] 2019-11-19 2019-11-19 [facility] [id number] Univers 09:30:00 09:30:00 LINDA espinal [facility] [place] [facility] 2019-10-29 2019-10-29 [facility] [id number] Univers 08:00:00 08:00:00 LINDA gino espinal [facility] [place] [facility] 2019-10-29 2019-10-29 [facility] [id number] Univers 08:00:00 08:00:00 LINDA espinal [facility] [place] [facility] 2019-10-25 2019-10-25 Outpatient R [facility] [id number] Univers 10:00:00 10:00:00 [facility] 2019-10-25 2019-10-25 Outpatient R MCKENZIE [facility] [id number] Univers 10:00:00 10:00:00 SENDIL [facility] 2019-10-25 2019-10-25 JEFF Burt 1.2.840.114 [id number] Univers 00:00:00 00:00:00 (Out) Papo ZION 350.1.13.10 it y of HOSPITAL [id number] Moi as [phone] [address] 2019-10-25 2019-10-25 Orders Doctor JEFF 1.2.840.114 [id number] Univers 00:00:00 00:00:00 Only Unassigned, ZION 350.1.13.10 [facility]y [facility] [place] [facility] [id number] Moi as [phone] [address] 2019-10-25 2019-10-25 JEFF Burt 1.2.840.114 [id number] Univers 00:00:00 00:00:00 (Out) Papo ZION 350.1.13.10 it y of HOSPITAL [id number] Moi as [phone] [address] 2019-10-22 2019-10-22 Orders Doctor JEFF 1.2.840.114 [id number] Univers 00:00:00 00:00:00 Only Unassigned, ZION 350.1.13.10 ity of [place] [facility] [id number] Moi as [phone] [address] 2019-10-18 2019-10-18 Outpatient R [facility] [id number] Univers 09:00:00 09:00:00 [id number] ity [facility] 2019-10-14 2019-10-14 Outpatient R [facility] [id number] Univers 13:00:00 13:00:00 [id number] ity [facility] 2019-05-09 2019-05-09 [facility] [id number] Univers 10:00:00 10:00:00 FREDY [id number] ity [facility] 2019-05-09 2019-05-09 [facility] [id number] Univers 10:00:00 10:00:00 FREDY ity [facility] 2019-04-26 2019-04-26 Office [facility] 1.2.840.114 [id number] Univers 09:26:44 10:15:52 Visit Linda Sly 350.1.13.10 [id number] [phone] [place]ical [facility] 205 [facility] 2019-04-26 2019-04-26 [facility] [id number] Univers 09:15:00 09:15:00 LINDA christian o f [facility] 2019-04-25 2019-04-25 Outpatient R [facility] [id number] Univers 13:00:00 13:00:00 [id number] ity [facility] 2019-04-25 2019-04-25 [facility] [id number] Univers 13:00:00 13:00:00 [facility]IL [facility] 2018-10-26 2018-10-26 [facility] 1.2.840.114 [id number] Univers 09:15:33 09:49:36 Visit Linda Sly 350.1.13.10 ity [facility] [id number] [phone] [place] dic[address] 2018-10-26 2018-10-26 Orders Doctor JEFF 1.2.840.114 [id number] Univers 00:00:00 00:00:00 Only Unassigned, ZION 350.1.13.10 ity of [place] [facility] [id number] Moi as [phone] [address] Results Test Description Test Time Test Comments Results Result Comments Source POCT URINALYSIS, INSTRUMENT 2020-02-03 21:35:00 Test Item Value Reference Range Interpretation Comme nts POCT U SP GRAV (test code = 3255) 1.020 mg/dl 1.005-1.025 POCT PH U (test code = 3254) 7.0 mg/dl 5-8 POCT U LEUK EST (test code = 3263) negative Negative - Negative POCT U NIT (test code = 3262) negative Negative - Negative POCT U PROT (test code = 3259) Negative - Negative POCT U GLU (test code = 3256) Negative - Negative POCT U KETONE (test code = 3258) negative Negative - Negative POCT U UROBILI (test code = 3260) 0.2 mg/dl 0.2-1 POCT U BILI (test code = 3261) negative Negative - Negative POCT U BLD (test code = 3257) moderate Negative - Negative POCT U COLOR (test code = 3266) yellow POCT U APPEAR (test code = 3267) clear [facility] URINALYSIS, [id number] 21:35:00 Test Item Value Reference Range Interpretation Comments POCT U SP GRAV (test code = 1.020 mg/dl 1.005-1.025 3255) POCT PH U (test code = 3254) 7.0 mg/dl 5-8 POCT U LEUK EST (test code = negative Negative - Negative 3263) POCT U NIT (test code = 3262) negative Negative - Negative POCT U PROT (test code = Negative - Negative 3259) POCT U GLU (test code = 3256) Negative - Negative POCT U KETONE (test code = negative Negative - Negative 3258) POCT U UROBILI (test code = 0.2 mg/dl 0.2-1 3260) POCT U BILI (test code = negative Negative - Negative 3261) POCT U BLD (test code = 3257) moderate Negative - Negative POCT U COLOR (test code = yellow 3266) POCT U APPEAR (test code = clear 3267) [facility] URINALYSIS, [id number] 19:21:00 Test Item Value Reference Range Interpretation Comments POCT U SP GRAV (test code = 1.025 mg/dl 1.005-1.025 3255) POCT PH U (test code = 3254) 6.5 mg/dl 5-8 POCT U LEUK EST (test code = negative Negative - Negative 3263) POCT U NIT (test code = 3262) negative Negative - Negative POCT U PROT (test code = Negative - Negative 3259) POCT U GLU (test code = 3256) Negative - Negative POCT U KETONE (test code = negative Negative - Negative 3258) POCT U UROBILI (test code = 1.0 mg/dl 0.2-1 3260) POCT U BILI (test code = negative Negative - Negative 3261) POCT U BLD (test code = 3257) small Negative - Negative POCT U COLOR (test code = yellow 3266) PO[facility] APPEAR (test code = clear 3267) [facility] [id number] 19:21:00 Test Item Value Reference Range Interpretation Comments POCT U SP GRAV (test code = 1.025 mg/dl 1.005-1.025 3255) POCT PH U (test code = 3254) 6.5 mg/dl 5-8 POCT U LEUK EST (test code = negative Negative - Negative 3263) POCT U NIT (test code = 3262) negative Negative - Negative POCT U PROT (test code = Negative - Negative 3259) POCT U GLU (test code = 3256) Negative - Negative POCT U KETONE (test code = negative Negative - Negative 3258) POCT U UROBILI (test code = 1.0 mg/dl 0.2-1 3260) POCT U BILI (test code = negative Negative - Negative 3261) POCT U BLD (test code = 3257) small Negative - Negative POCT U COLOR (test code = yellow 3266) POCT U APPEAR (test code = clear 3267) [facility]
--- NOTE | 2021-02-26 13:51 | RAD REPORT ---
EXAM DESCRIPTION: CT - Head Brain Wo Cont - 02/26/2021 1:39 pm CLINICAL HISTORY: TRAUMA COMPARISON: Head Brain Wo Cont dated 12/05/2016 TECHNIQUE: All CT scans are performed using dose optimization technique as appropriate and may inclu de automated exposure control or mA/KV adjustment according to patient size. FINDINGS: No intracranial hemorrhage, hydrocephalus or extra-axial fluid collection.No areas of brai n edema or evidence of midline shift. Chronic small vessel ischemic changes. Cerebral atrophy. The paranasal sinuses and mastoids are clear. The calvarium is intact. IMPRESSION: No acute intracranial abnormality.
--- NOTE | 2021-02-26 13:59 | RAD REPORT ---
EXAM DESCRIPTION: RAD - Hand Left 3 View - 02/26/2021 1:52 pm CLINICAL HISTORY: SMASH INJURY COMPARISON: No comparisons FINDINGS/IMPRESSION: No acute fracture. No malalignment. No significant focal degenerative changes.
--- NOTE | 2021-02-26 14:16 | EDPHYS ---
Physician Documentation [facility] Name: Jagdish Starks Jr Age: 70 yrs Sex: Male : 1950 Arrival Date: 02/26/2021 Time: 13:01 Bed 24 Private MD: ED Physician Jennifer Grove HPI: 02/26 13:33 This 70 yrs old Black Male presents to ER via EMS with complaints of PainLeft hand pain sp3 and secondary to fall. 13:33 70-year-old male with history of diabetes and bilateral lower extremity surgeries sp3 presents with chief complaint left hand pain and head pain secondary to a mechanical fall that was due to "his legs giving out". Patient states that this is happened to him multiple times in the past and is because of the surgeries that his lower extremities are weak. Patient was in a parking lot ambulating when this occurred again for which he braced himself on the ground with his left hand and did strike the right side of his forehead. Patient denies loss of consciousness or syncope before or after or during the episode. On review of systems patient also denies neck pain, facial pain, chest pain, shortness of breath, rib pain, abdominal pain, nausea, vomiting, diarrhea, extremity pain other than his left hand or any other symptoms at this time. All remaining systems are negative.. Historical: - Allergies: 13:07 No Known Allergies; ab2 - Home Meds: 13:07 levemir [Active]; ab2 - PMHx: 13:07 Diabetes - IDDM; ab2 - Immunization history:: Adult Immunizations unknown, Client reports having NOT received the Covid vaccine. Last tetanus immunization: unknown. - Social history:: Smoking status: Patient reports the use of cigarette tobacco products, smokes one-half pack cigarettes per day, Patient/guardian denies using alcohol, street drugs. ROS: 13:34 Constitutional: Negative for fever, chills, and weight loss, Eyes: Negative for injury, sp3 pain, redness, and discharge, ENT: Negative for injury, pain, and discharge, Neck: Negative for injury, pain, and swelling, Cardiovascular: Negative for chest pain, palpitations, and edema, Respiratory: Negative for shortness of breath, cough, wheezing, and pleuritic chest pain, Abdomen/GI: Negative for abdominal pain, nausea, vomiting, diarrhea, and constipation, Back: Negative for injury and pain, Skin: Negative for injury, rash, and discoloration, Neuro: Negative for headache, weakness, numbness, tingling, and seizure, Psych: Negative for depression, anxiety, suicide ideation, homicidal ideation, and hallucinations, Endocrine: Negative for neck swelling, polydipsia, polyuria, polyphagia, and marked weight changes, Hematologic/Lymphatic: Negative for swollen nodes, abnormal bleeding, and unusual bruising. Exam: 13:34 Constitutional: This is a well developed, well nourished patient who is awake, alert, sp3 and in no acute distress. Head/Face: Normocephalic, atraumatic. Eyes: Pupils equal round and reactive to light, extra-ocular motions intact. Lids and lashes normal. Conjunctiva and sclera are non-icteric and not injected. Cornea within normal limits. Periorbital areas with no swelling, redness, or edema. ENT: Nares patent. No nasal discharge, no septal abnormalities noted. External auditory canals are clear. Oropharynx with no redness, swelling, or masses, exudates, or evidence of obstruction, uvula midline. Mucous membranes moist. Neck: Trachea midline, no thyromegaly or masses palpated, and no cervical lymphadenopathy. Supple, full range of motion without nuchal rigidity, or vertebral point tenderness. No Meningismus. Chest/axilla: Normal chest wall appearance and motion. Nontender with no deformity. No lesions are appreciated. Cardiovascular: Regular rate and rhythm with a normal S1 and S2. No gallops, murmurs, or rubs. Normal PMI, no JVD. No pulse deficits. Respiratory: Lungs have equal breath sounds bilaterally, clear to auscultation and percussion. No rales, rhonchi or wheezes noted. No increased work of breathing, no retractions or nasal flaring. Abdomen/GI: Soft, non-tender, with normal bowel sounds. No distension or tympany. No guarding or rebound. No evidence of tenderness throughout. Back: No spinal tenderness. No costovertebral tenderness. Full range of motion. Neuro: Awake and alert, GCS 15, oriented to person, place, time, and situation. Cranial nerves II-XII grossly intact. Motor strength 5/5 in all extremities. Sensory grossly intact. Cerebellar exam normal. Normal gait. Psych: Awake, alert, with orientation to person, place and time. Behavior, mood, and affect are within normal limits. 13:34 Musculoskeletal/extremity: Multiple abrasions on left hand consistent with mechanism of injury. No lacerations noted and nothing that needs repair. Patient has no visible injuries on the head.. Vital Signs: 13:01 BP 163 / 91 LA Sitting (man/reg); Pulse 100 MON; Resp 16; Temp 98.0(O); Pulse Ox 98% on ab2 R/A; Weight 72.57 kg; Height 5 ft. 2 in. (157.48 cm); Pain 4/10; 13:15 BP 163 / 91; Pulse 100; Resp 16; Pulse Ox 98% on R/A; Pain 4/10; ab2 14:09 BP 126 / 82; Pulse 79; Resp 16; Pulse Ox 98% on R/A; Pain 1/10; ab2 13:01 Body Mass Index 29.26 (72.57 kg, 157.48 cm) ab2 MDM: 13:27 Patient medically screened. sp3 13:35 Data reviewed: vital signs, nurses notes. ED course: 70-year-old male with diabetes who sp3 has a mechanical fall. Will x-ray left hand and CT scan of the head. If negative will discharge patient home. I do not believe patient had a syncopal episode or cardiac event led to the fall. Patient vital signs are normal and he has no other complaints at this time.. 14:11 ED course: X-ray and CT scan are negative. Will discharge patient home at this time. sp3 Wounds have been dressed.. 02/26 13:28 Order name: CT Head Brain wo Cont; Complete Time: 14:10 sp3 02/26 13:28 Order name: XRAY Hand LEFT 3 View; Complete Time: 14:10 sp3 Administered Medications: No medications were administered Disposition Summary: 02/26/21 14:15 Discharge Ordered Location: Home sp3 Condition: Stable sp3 Diagnosis - Fall on same level, unspecified sp3 - Left hand abrasion sp3 Followup: sp3 - With: Private Physician - When: As needed - Reason: Continuance of care Discharge Instructions: - Discharge Summary Sheet sp3 - Fall Prevention in the Home, Adult sp3 Forms: - Medication Reconciliation Form sp3 - Thank You Letter sp3 - Antibiotic Education sp3 - Prescription Opioid Use sp3 Signatures: Dispatcher [employer] EDJennifer Salazar MD MD sp3 Buddy Bejarano
--- NOTE | 2021-02-26 14:16 | ER ---
Nurse's Notes [facility] Name: Jagdish Starks Jr Age: 70 yrs Sex: Male : 1950 Arrival Date: 02/26/2021 Time: 13:01 Bed 24 Private MD: Diagnosis: Fall on same level, unspecified;Left hand abrasion Presentation: 02/26 13:01 Chief complaint: Patient states: Patient presents to ED via EMS for a mechanical fall ab2 while walking in a parking lot. Pt states, "My legs gave out." Denies LOC. Pt fell face forward, causing a small scratch on his nose. Pt c/o right knee pain and left hand pain. A few abrasions noted to left hand, bleeding controlled at this time. Pt has rods and screws in both legs. Coronavirus screen: Vaccine status: Patient reports being unvaccinated. Client denies travel out of the [place] in the last 14 days. At this time, the client does not indicate any symptoms associated with coronavirus-19. Ebola Screen: Patient negative for fever greater than or equal to 101.5 degrees Fahrenheit, and additional compatible Ebola Virus Disease symptoms Patient denies exposure to infectious person. Patient denies travel to an Ebola-affected area in the 21 days before illness onset. No symptoms or risks identified at this time. Initial Sepsis Screen: Does the patient meet any 2 criteria? HR > 90 bpm. No. Patient's initial sepsis screen is negative. Does the patient have a suspected source of infection? No. Patient's initial sepsis screen is negative. Risk Assessment: Do you want to hurt yourself or someone else? Patient reports no desire to harm self or others. Onset of symptoms was February 26, 2021. 13:01 Method Of Arrival: EMS: [facility] ab2 13:01 Acuity: PREETHI 3 ab2 Triage Assessment: 13:11 General: Appears in no apparent distress. comfortable, Behavior is calm, cooperative, ab2 appropriate for age. Pain: Complains of pain in right knee Pain does not radiate. Pain currently is 4 out of 10 on a pain scale. Quality of pain is described as burning, Pain began suddenly, 30 min ago. Also complains of no other associated symptoms. EENT: No deficits noted. No signs and/or symptoms were reported regarding the EENT system. Neuro: Level of Consciousness is awake, alert, obeys commands, Oriented to person, place, time, situation, Appropriate for age Car Escort are equal bilaterally Speech is normal, Facial symmetry appears normal, Denies headache. Cardiovascular: No deficits noted. Denies chest pain, shortness of breath. Respiratory: No deficits noted. Airway is patent Breath sounds are clear bilaterally. GI: No deficits noted. No signs and/or symptoms were reported involving the gastrointestinal system. : No deficits noted. No signs and/or symptoms were reported regarding the genitourinary system. Derm: Wound noted lateral aspect of left hand, medial aspect of left hand and dorsum of left hand Reports pain that is 4 out of 10 on a pain scale. Musculoskeletal: Reports pain in right knee. Injury Description: Abrasion sustained to nose. Historical: - Allergies: 13:07 No Known Allergies; ab2 - Home Meds: 13:07 levemir [Active]; ab2 - PMHx: 13:07 Diabetes - IDDM; ab2 - Immunization history:: Adult Immunizations unknown, Client reports having NOT received the Covid vaccine. Last tetanus immunization: unknown. - Social history:: Smoking status: Patient reports the use of cigarette tobacco products, smokes one-half pack cigarettes per day, Patient/guardian denies using alcohol, street drugs. Screenin:16 Abuse screen: Denies threats or abuse. Denies injuries from another. Nutritional ab2 screening: No deficits noted. Tuberculosis screening: No symptoms or risk factors identified. Fall Risk Fall in past 12 months (25 points). Secondary diagnosis (15 points) No IV (0 pts). Ambulatory Aid- None/Bed Rest/Nurse Assist (0 pts). Gait- Weak (10 pts.). Mental Status- Oriented to own ability (0 pts). Total Mckeon Fall Scale indicates High Risk Score (45 or more points). Fall prevention measures have been instituted. Side Rails Up X 2 Placed Close to Nursing Station Frequent Obs/Assessments Occuring As available patient and family educated on Fall Prevention Program and Strategies. Assessment: 13:20 General: Appears in no apparent distress. comfortable, Behavior is calm, cooperative. ab2 Pain: Complains of pain in right knee. Neuro: No deficits noted. Level of Consciousness is awake, alert, Oriented to person, place, time, situation, Appropriate for age Denies headache. Cardiovascular: No deficits noted. Denies chest pain, shortness of breath, Heart tones S1 S2 present Patient's skin is warm and dry. Chest pain is denied. Respiratory: No deficits noted. Airway is patent Breath sounds are clear bilaterally. Denies shortness of breath. GI: No deficits noted. No signs and/or symptoms were reported involving the gastrointestinal system. Patient currently denies abdominal pain. : No deficits noted. No signs and/or symptoms were reported regarding the genitourinary system. EENT: No deficits noted. No signs and/or symptoms were reported regarding the EENT system. Derm: Wound noted lateral aspect of left hand, medial aspect of left hand and dorsum of left hand Wound is Bleeding controlled. Few small abrasions noted to lateral hand. Musculoskeletal: Reports pain in right knee. Injury Description: Abrasion sustained to left hand. 13:28 Derm:. ab2 14:10 Derm: Wound noted Other: Left hand abrasions cleansed with normal saline and sterile ab2 gauze. Dressings applied, bleeding controlled. Patient tolerated well. 14:12 Reassessment: Patient states that the pain in his right knee has subsided with ab2 immobilization Patient states symptoms have improved. Vital Signs: 13:01 BP 163 / 91 LA Sitting (man/reg); Pulse 100 MON; Resp 16; Temp 98.0(O); Pulse Ox 98% on ab2 R/A; Weight 72.57 kg; Height 5 ft. 2 in. (157.48 cm); Pain 4/10; 13:15 BP 163 / 91; Pulse 100; Resp 16; Pulse Ox 98% on R/A; Pain 4/10; ab2 14:09 BP 126 / 82; Pulse 79; Resp 16; Pulse Ox 98% on R/A; Pain 1/10; ab2 13:01 Body Mass Index 29.26 (72.57 kg, 157.48 cm) ab2 ED Course: 13:01 Patient arrived in ED. ab2 13:07 Triage completed. ab2 13:15 Arm band placed on right wrist. Bandage applied. ab2 13:16 Jennifer Grove MD is Attending Physician. sp3 13:17 No provider procedures requiring assistance completed. Patient did not have IV access ab2 during this emergency room visit. Wound care: to abrasion, located on left hand was dressed with Patient tolerated well. 13:18 Patient has correct armband on for positive identification. Bed in low position. Call ab2 light in reach. Side rails up X2. Door closed. Noise minimized. Warm blanket given. Head of bed elevated. 13:19 Buddy Bejarano is Primary Nurse. ab2 13:39 CT Head Brain wo Cont In Process Unspecified. EDMS 13:51 XRAY Hand LEFT 3 View In Process Unspecified. EDMS Administered Medications: No medications were administered Outcome: 14:15 Discharge ordered by . sp3 14:24 Discharged to home ambulatory. ab2 14:24 Condition: improved 14:24 Discharge instructions given to patient, Instructed on discharge instructions, follow up and referral plans. Demonstrated understanding of instructions, follow-up care, wound care. 14:25 Patient left the ED. ab2 Signatures: Dispatcher [employer] Jennifer Cabrera MD MD sp3 Buddy Bejarano ab2
[2021-02-26 14:39] VITALS: TEMP 98; O2SAT 98
[2021-02-26 14:42] VITALS: BP 126/82
== END 2021-02-26 14:25 | disposition home or self-care (01) ==
LOC: ER 12:59
DX: S60.512A Abrasion of left hand, initial encounter (principal); W01.0XXA Fall on same level from slipping, tripping and stumbling without subsequent striking against object, initial encounter; Y93.89 Activity, other specified; Y92.481 Parking lot as the place of occurrence of the external cause; F17.210 Nicotine dependence, cigarettes, uncomplicated
CPT/HCPCS: 70450; 99284

== ENCOUNTER 2023-02-14 10:18 | Inpatient (IN) | payer OTHER ==
--- OUTSIDE RECORDS SUMMARY | 2023-02-14 10:22 | XMS REPORT | Continuity of Care Document ---
Author Name Unknown Address [address] [facility] [place] [address] [facility] [address] [facility] [address] [place] [address] Care Team Providers Care Still Operator Whiskey Name Role Phone ALISON WALSH Attending Clinician Unavailable LINDA MCFARLAND Attending Clinician UnavailZACHARY Antonio Attending Clinician Unavailable Doctor Unassigned, Burgin Attending Clinician U ODALIS Irizarry Attending Clinician Unavailable Odalis Maria MD Attending Clinician [phone], [facility] Attending Clinician Unavailable , [facility] S[facility] Spec Procedure Attending Clinician Unavailable CATALINO HERZOG Attending Clinician UnavailLinda Rey MD Attending Clinician [phone] BRENDA RINCON Attending Clinician UnavailPapo Zavala Attending Clinician [phone] FREDY TA Attending Clinician Unavailable Payers Payer Name Policy Type Policy Number Effective Date Expirati on Date Source [facility] DUAL COMPLETE HMO [id number] 2017 00:00:00 [facility] STAR PLUS [id number] 00:00:00 MEDICAID [place] [id number] 2016 00:00:00 [facility] DUAL COMPLETE CHOICE [id number] 2019 00:00:00 Problems Condition Name Condition Details Condition Category Status Onset Date Resolution Date Last Treatment Date Treating Clinician Comments Source Claudicati on in peripheral vascular disease Claudicati on in peripheral vascular disease Disease Active 05-29 00:00: 00 Overview: Added automatic ally from request for surgery [id number] [facility] Allergies, Adverse Reactions, Alerts Allergy Name Allergy Type Status Severity Reaction(s) Onset Date Inactive Date Treating Clinician Comments Source NO KNOWN ALLERGIE S Drug Class Active [facility] acute hospital Social History Social Habit Start Date Stop Date Quantity Comments Source Sex Assigned [facility] Exposure to SARS-CoV-2 (event) Not sure [facility] Tobacco use and exposure 2020-02-03 00:00:00 2020-02-03 00:00:00 Never used [facility] Smoking Status Start Date Stop Date Source Light tobacco smoker 2020-02-03 00:00:00 [facility] Medications Ordered Medication Name Filled Medication Name Start Date Stop Date Current Medication? Ordering Clinician Indication Dosage Frequency Signature (SIG) Comments Components Source tamsulosin 0.4 mg 24 hr capsule 2019-02 00:00: 00 02-05 05:59 :00 No [id number] 01 .4mg Take 1 capsule by mouth daily for 30 days. [facility] tamsulosin 0.4 mg 24 hr capsule 2019-02 00:00: 00 02-05 05:59 :00 No [id number] 01 .4mg Take 1 capsule by mouth daily for 30 days. [facility] tamsulosin 0.4 mg 24 hr capsule 2019-02 00:00: 00 02-05 05:59 :00 No [id number] 01 .4mg Take 1 capsule by mouth daily for 30 days. [facility] tamsulosin 0.4 mg 24 hr capsule 2019-02 00:00: 00 02-05 05:59 :00 No [id number] 01 .4mg Take 1 capsule by mouth daily for 30 days. [facility] tamsulosin 0.4 mg 24 hr capsule 2019-02 00:00: 00 02-05 05:59 :00 No [id number] 01 .4mg Take 1 capsule by mouth daily for 30 days. [facility] tamsulosin 0.4 mg 24 hr capsule 2019-02 00:00: 00 02-05 05:59 :00 No [id number] 01 .4mg Take 1 capsule by mouth daily for 30 days. [facility] atorvastati n 20 mg tablet 2020-0 3-06 00:00: 00 Yes [id number] 20mg Take 1 tablet by mouth at bedtime. [facility] clopidogreL (PLAVIX) 75 mg tablet 2020-0 3-06 00:00: 00 Yes [id number] 75mg Take 1 tablet by mouth daily. [facility] atorvastati n 20 mg tablet 2020-0 3-06 00:00: 00 Yes [id number] 20mg Take 1 tablet by mouth at bedtime. [facility] clopidogreL (PLAVIX) 75 mg tablet 2020-0 3-06 00:00: 00 Yes [id number] 75mg Take 1 tablet by mouth daily. [facility] atorvastati n 20 mg tablet 2020-0 3-06 00:00: 00 Yes [id number] 20mg Take 1 tablet by mouth at bedtime. [facility] clopidogreL (PLAVIX) 75 mg tablet 2020-0 3-06 00:00: 00 Yes [id number] 75mg Take 1 tablet by mouth daily. [facility] atorvastati n 20 mg tablet 2020-0 3- 00:00: 00 Yes [id number] 20mg Take 1 tablet by mouth at bedtime. [facility] clopidogreL (PLAVIX) 75 mg tablet 2020-0 3-06 00:00: 00 Yes [id number] 75mg Take 1 tablet by mouth daily. [facility] atorvastati n 20 mg tablet 2020-0 3-06 00:00: 00 Yes [id number] 20mg Take 1 tablet by mouth at bedtime. [facility] clopidogreL (PLAVIX) 75 mg tablet 2020-0 3-06 00:00: 00 Yes [id number] 75mg Take 1 tablet by mouth daily. [facility] atorvastati n 20 mg tablet 2020-0 3-06 00:00: 00 Yes [id number] 20mg Take 1 tablet by mouth at bedtime. [facility] clopidogreL (PLAVIX) 75 mg tablet 2020-0 3-06 00:00: 00 Yes [id number] 75mg Take 1 tablet by mouth daily. [facility] atorvastati n 20 mg tablet 2020-0 3-06 00:00: 00 Yes [id number] 20mg Take 1 tablet by mouth at bedtime. [facility] clopidogreL (PLAVIX) 75 mg tablet 2019-0 3 00:00: 00 Yes [id number] 75mg Take 1 tablet by mouth daily. [facility] atorvastati n 20 mg tablet 2020-0 3- 00:00: 00 Yes [id number] 20mg Take 1 tablet by mouth at bedtime. [facility] clopidogreL (PLAVIX) 75 mg tablet 2019-0 3- 00:00: 00 Yes [id number] 75mg Take 1 tablet by mouth daily. [facility] atorvastati n 20 mg tablet 2019-0 04-25 00:00: 00 Yes [id number] 20mg Take 1 tablet by mouth at bedtime. [facility] clopidogreL (PLAVIX) 75 mg tablet 2019-0 04-25 00:00: 00 Yes [id number] 75mg Take 1 tablet by mouth daily. [facility] atorvastati n 20 mg tablet 2019-0 04-25 00:00: 00 Yes [id number] 20mg Take 1 tablet by mouth at bedtime. [facility] clopidogreL (PLAVIX) 75 mg tablet 2019-0 04-25 00:00: 00 Yes [id number] 75mg Take 1 tablet by mouth daily. [facility] atorvastati n 20 mg tablet 2019-0 3- 00:00: 00 Yes [id number] 20mg Take 1 tablet by mouth at bedtime. [facility] clopidogreL (PLAVIX) 75 mg tablet 2019-0 3- 00:00: 00 Yes [id number] 75mg Take 1 tablet by mouth daily. [facility] atorvastati n 20 mg tablet 2020-0 3- 00:00: 00 Yes [id number] 20mg Take 1 tablet by mouth at bedtime. [facility] clopidogreL (PLAVIX) 75 mg tablet 2020-0 3- 00:00: 00 Yes [id number] 75mg Take 1 tablet by mouth daily. [facility] atorvastati n 20 mg tablet 2020-0 3-06 00:00: 00 Yes [id number] 20mg Take 1 tablet by mouth at bedtime. [facility] clopidogreL (PLAVIX) 75 mg tablet 2020-0 3-06 00:00: 00 Yes [id number] 75mg Take 1 tablet by mouth daily. [facility] atorvastati n 20 mg tablet 2020-0 3-06 00:00: 00 Yes [id number] 20mg Take 1 tablet by mouth at bedtime. [facility] clopidogreL (PLAVIX) 75 mg tablet 2020-0 3-06 00:00: 00 Yes [id number] 75mg Take 1 tablet by mouth daily. [facility] atorvastati n 20 mg tablet 2020-0 3- 00:00: 00 Yes [id number] 20mg Take 1 tablet by mouth at bedtime. [facility] clopidogreL (PLAVIX) 75 mg tablet 2020-0 3- 00:00: 00 Yes [id number] 75mg Take 1 tablet by mouth daily. [facility] atorvastati n 20 mg tablet 2020-0 3-06 00:00: 00 Yes [id number] 20mg Take 1 tablet by mouth at bedtime. [facility] clopidogreL (PLAVIX) 75 mg tablet 2020-0 306 00:00: 00 Yes [id number] 75mg Take 1 tablet by mouth daily. [facility] atorvastati n 20 mg tablet 2020-0 3-06 00:00: 00 Yes [id number] 20mg Take 1 tablet by mouth at bedtime. [facility] clopidogreL (PLAVIX) 75 mg tablet 2020-0 3-06 00:00: 00 Yes [id number] 75mg Take 1 tablet by mouth daily. [facility] atorvastati n 20 mg tablet 2020-0 3-06 00:00: 00 Yes [id number] 20mg Take 1 tablet by mouth at bedtime. [facility] clopidogreL (PLAVIX) 75 mg tablet 2020-0 3-06 00:00: 00 Yes [id number] 75mg Take 1 tablet by mouth daily. [facility] atorvastati n 20 mg tablet 2020-0 3-06 00:00: 00 Yes [id number] 20mg Take 1 tablet by mouth at bedtime. [facility] clopidogreL (PLAVIX) 75 mg tablet 04-25 00:00: 00 Yes [id number] 75mg Take 1 tablet by mouth daily. [facility] atorvastati n 20 mg tablet 04-25 00:00: 00 Yes [id number] 20mg Take 1 tablet by mouth at bedtime. [facility] clopidogreL (PLAVIX) 75 mg tablet 04-25 00:00: 00 Yes [id number] 75mg Take 1 tablet by mouth daily. [facility] gabapentin 600 mg tablet 06-13 23:47: 36 Yes 600mg Take 600 mg by mouth 2 (two) times daily. [facility] cyanocobala min, vitamin B-12, (VITAMIN B12 ORAL) 06-13 23:47: 36 Yes Take by mouth daily. [facility] ferrous sulfate (IRON ORAL) 06-13 23:47: 36 Yes Take by mouth daily. [facility] multivitami n tablet 06-13 23:47: 36 Yes 1{tbl} Take 1 tablet by mouth daily. [facility] METFORMIN HCL (METFORMIN ORAL) 06-13 23:47: 36 Yes 500mg Take 500 mg by mouth 2 (two) times daily. [facility] DULAGLUTIDE (TRULICITY SC) 06-13 23:47: 36 Yes 600mg inject 600 mg under the skin 2 (two) times daily. [facility] insulin glarginetommyrec.anlog (DEMETRIS SOLMAYAR U-300 INSULIN SC) 06-13 23:47: 36 Yes 18U inject 18 Units under the skin daily. [facility] gabapentin 600 mg tablet 06-13 23:47: 36 Yes 600mg Take 600 mg by mouth 2 (two) times daily. [facility] cyanocobala min, vitamin B-12, (VITAMIN B12 ORAL) 06-13 23:47: 36 Yes Take by mouth daily. [facility] ferrous sulfate (IRON ORAL) 06-13 23:47: 36 Yes Take by mouth daily. [facility] multivitami n tablet 06-13 23:47: 36 Yes 1{tbl} Take 1 tablet by mouth daily. [facility] METFORMIN HCL (METFORMIN ORAL) 06-13 23:47: 36 Yes 500mg Take 500 mg by mouth 2 (two) times daily. [facility] DULAGLUTIDE (TRULICITY SC) 06-13 23:47: 36 Yes 600mg inject 600 mg under the skin 2 (two) times daily. [facility] insulin glarginetommyrec.anlog (TOUJEO SOLOSTAR U-300 INSULIN SC) 06-13 23:47: 36 Yes 18U inject 18 Units under the skin daily. [facility] gabapentin 600 mg tablet 06-13 23:47: 36 Yes 600mg Take 600 mg by mouth 2 (two) times daily. [facility] cyanocobala min, vitamin B-12, (VITAMIN B12 ORAL) 06-13 23:47: 36 Yes Take by mouth daily. [facility] ferrous sulfate (IRON ORAL) 06-13 23:47: 36 Yes Take by mouth daily. [facility] multivitami n tablet 06-13 23:47: 36 Yes 1{tbl} Take 1 tablet by mouth daily. [facility] METFORMIN HCL (METFORMIN ORAL) 06-13 23:47: 36 Yes 500mg Take 500 mg by mouth 2 (two) times daily. [facility] DULAGLUTIDE (TRULICITY SC) 06-13 23:47: 36 Yes 600mg inject 600 mg under the skin 2 (two) times daily. [facility] insulin glarginetommyrec.anlog (TOUJEO SOLOSTAR U-300 INSULIN SC) 06-13 23:47: 36 Yes 18U inject 18 Units under the skin daily. [facility] gabapentin 600 mg tablet 06-13 23:47: 36 Yes 600mg Take 600 mg by mouth 2 (two) times daily. [facility] cyanocobala min, vitamin B-12, (VITAMIN B12 ORAL) 06-13 23:47: 36 Yes Take by mouth daily. [facility] ferrous sulfate (IRON ORAL) 06-13 23:47: 36 Yes Take by mouth daily. [facility] multivitami n tablet 06-13 23:47: 36 Yes 1{tbl} Take 1 tablet by mouth daily. [facility] METFORMIN HCL (METFORMIN ORAL) 06-13 23:47: 36 Yes 500mg Take 500 mg by mouth 2 (two) times daily. [facility] DULAGLUTIDE (TRULICITY SC) 06-13 23:47: 36 Yes 600mg inject 600 mg under the skin 2 (two) times daily. [facility] insulin glarginetommyrec.anlog (DEMETRIS MACK U-300 INSULIN SC) 06-13 23:47: 36 Yes 18U inject 18 Units under the skin daily. [facility] gabapentin 600 mg tablet 06-13 23:47: 36 Yes 600mg Take 600 mg by mouth 2 (two) times daily. [facility] cyanocobala min, vitamin B-12, (VITAMIN B12 ORAL) 06-13 23:47: 36 Yes Take by mouth daily. [facility] ferrous sulfate (IRON ORAL) 06-13 23:47: 36 Yes Take by mouth daily. [facility] multivitami n tablet 06-13 23:47: 36 Yes 1{tbl} Take 1 tablet by mouth daily. [facility] METFORMIN HCL (METFORMIN ORAL) 06-13 23:47: 36 Yes 500mg Take 500 mg by mouth 2 (two) times daily. [facility] DULAGLUTIDE (TRULICITY SC) 06-13 23:47: 36 Yes 600mg inject 600 mg under the skin 2 (two) times daily. [facility] insulin glarginetommy.rec.anlog (TOUJEO SOLOSTAR U-300 INSULIN SC) 06-13 23:47: 36 Yes 18U inject 18 Units under the skin daily. [facility] gabapentin 600 mg tablet 06-13 23:47: 36 Yes 600mg Take 600 mg by mouth 2 (two) times daily. [facility] cyanocobala min, vitamin B-12, (VITAMIN B12 ORAL) 06-13 23:47: 36 Yes Take by mouth daily. [facility] ferrous sulfate (IRON ORAL) 06-13 23:47: 36 Yes Take by mouth daily. [facility] multivitami n tablet 06-13 23:47: 36 Yes 1{tbl} Take 1 tablet by mouth daily. [facility] METFORMIN HCL (METFORMIN ORAL) 06-13 23:47: 36 Yes 500mg Take 500 mg by mouth 2 (two) times daily. [facility] DULAGLUTIDE (TRULICITY SC) 06-13 23:47: 36 Yes 600mg inject 600 mg under the skin 2 (two) times daily. [facility] insulin glarginetommy.rec.anlog (TOUJEO SOLOSTAR U-300 INSULIN SC) 06-13 23:47: 36 Yes 18U inject 18 Units under the skin daily. [facility] gabapentin 600 mg tablet 06-13 23:47: 36 Yes 600mg Take 600 mg by mouth 2 (two) times daily. [facility] cyanocobala min, vitamin B-12, (VITAMIN B12 ORAL) 06-13 23:47: 36 Yes Take by mouth daily. [facility] ferrous sulfate (IRON ORAL) 06-13 23:47: 36 Yes Take by mouth daily. [facility] multivitami n tablet 06-13 23:47: 36 Yes 1{tbl} Take 1 tablet by mouth daily. [facility] METFORMIN HCL (METFORMIN ORAL) 06-13 23:47: 36 Yes 500mg Take 500 mg by mouth 2 (two) times daily. [facility] DULAGLUTIDE (TRULICITY SC) 06-13 23:47: 36 Yes 600mg inject 600 mg under the skin 2 (two) times daily. [facility] insulin glarginetommy.rec.anlog (TOUJEO SOLOSTAR U-300 INSULIN SC) 06-13 23:47: 36 Yes 18U inject 18 Units under the skin daily. [facility] gabapentin 600 mg tablet 06-13 23:47: 36 Yes 600mg Take 600 mg by mouth 2 (two) times daily. [facility] cyanocobala min, vitamin B-12, (VITAMIN B12 ORAL) 06-13 23:47: 36 Yes Take by mouth daily. [facility] ferrous sulfate (IRON ORAL) 06-13 23:47: 36 Yes Take by mouth daily. [facility] multivitami n tablet 06-13 23:47: 36 Yes 1{tbl} Take 1 tablet by mouth daily. [facility] METFORMIN HCL (METFORMIN ORAL) 06-13 23:47: 36 Yes 500mg Take 500 mg by mouth 2 (two) times daily. [facility] DULAGLUTIDE (TRULICITY SC) 06-13 23:47: 36 Yes 600mg inject 600 mg under the skin 2 (two) times daily. [facility] insulin glarginetommy.rec.anlog (TOUJEO SOLOSTAR U-300 INSULIN SC) 06-13 23:47: 36 Yes 18U inject 18 Units under the skin daily. [facility] gabapentin 600 mg tablet 06-13 23:47: 36 Yes 600mg Take 600 mg by mouth 2 (two) times daily. [facility] cyanocobala min, vitamin B-12, (VITAMIN B12 ORAL) 06-13 23:47: 36 Yes Take by mouth daily. [facility] ferrous sulfate (IRON ORAL) 06-13 23:47: 36 Yes Take by mouth daily. [facility] multivitami n tablet 06-13 23:47: 36 Yes 1{tbl} Take 1 tablet by mouth daily. [facility] METFORMIN HCL (METFORMIN ORAL) 06-13 23:47: 36 Yes 500mg Take 500 mg by mouth 2 (two) times daily. [facility] DULAGLUTIDE (TRULICITY SC) 06-13 23:47: 36 Yes 600mg inject 600 mg under the skin 2 (two) times daily. [facility] insulin glarginetommy m.rec.anlog (TOUJEO SOLOSTAR U-300 INSULIN SC) 06-13 23:47: 36 Yes 18U inject 18 Units under the skin daily. [facility] gabapentin 600 mg tablet 06-13 23:47: 36 Yes 600mg Take 600 mg by mouth 2 (two) times daily. [facility] cyanocobala min, vitamin B-12, (VITAMIN B12 ORAL) 06-13 23:47: 36 Yes Take by mouth daily. [facility] ferrous sulfate (IRON ORAL) 06-13 23:47: 36 Yes Take by mouth daily. [facility] multivitami n tablet 06-13 23:47: 36 Yes 1{tbl} Take 1 tablet by mouth daily. [facility] METFORMIN HCL (METFORMIN ORAL) 06-13 23:47: 36 Yes 500mg Take 500 mg by mouth 2 (two) times daily. [facility] DULAGLUTIDE (TRULICITY SC) 06-13 23:47: 36 Yes 600mg inject 600 mg under the skin 2 (two) times daily. [facility] METFORMIN HCL (METFORMIN ORAL) 06-13 23:47: 36 Yes 500mg Take 500 mg by mouth 2 (two) times daily. [facility] insulin glarginetommy.rec.anlog (TOUJEO SOLOSTAR U-300 INSULIN SC) 06-13 23:47: 36 Yes 18U inject 18 Units under the skin daily. [facility] gabapentin 600 mg tablet 06-13 23:47: 36 Yes 600mg Take 600 mg by mouth 2 (two) times daily. [facility] cyanocobala min, vitamin B-12, (VITAMIN B12 ORAL) 06-13 23:47: 36 Yes Take by mouth daily. [facility] ferrous sulfate (IRON ORAL) 06-13 23:47: 36 Yes Take by mouth daily. [facility] multivitami n tablet 06-13 23:47: 36 Yes 1{tbl} Take 1 tablet by mouth daily. [facility] DULAGLUTIDE (TRULICITY SC) 06-13 23:47: 36 Yes 600mg inject 600 mg under the skin 2 (two) times daily. [facility] METFORMIN HCL (METFORMIN ORAL) 06-13 23:47: 36 Yes 500mg Take 500 mg by mouth 2 (two) times daily. [facility] DULAGLUTIDE (TRULICITY SC) 06-13 23:47: 36 Yes 600mg inject 600 mg under the skin 2 (two) times daily. [facility] insulin glarginetommy.rec.anlog (TOUJEO SOLOSTAR U-300 INSULIN SC) 06-13 23:47: 36 Yes 18U inject 18 Units under the skin daily. [facility] insulin glarginetommy.rec.anlog (TOUJEO SOLOSTAR U-300 INSULIN SC) 06-13 23:47: 36 Yes 18U inject 18 Units under the skin daily. [facility] gabapentin 600 mg tablet 06-13 23:47: 36 Yes 600mg Take 600 mg by mouth 2 (two) times daily. [facility] cyanocobala min, vitamin B-12, (VITAMIN B12 ORAL) 06-13 23:47: 36 Yes Take by mouth daily. [facility] ferrous sulfate (IRON ORAL) 06-13 23:47: 36 Yes Take by mouth daily. [facility] multivitami n tablet 06-13 23:47: 36 Yes 1{tbl} Take 1 tablet by mouth daily. [facility] gabapentin 600 mg tablet 06-13 23:47: 36 Yes 600mg Take 600 mg by mouth 2 (two) times daily. [facility] METFORMIN HCL (METFORMIN ORAL) 06-13 23:47: 36 Yes 500mg Take 500 mg by mouth 2 (two) times daily. [facility] DULAGLUTIDE (TRULICITY SC) 06-13 23:47: 36 Yes 600mg inject 600 mg under the skin 2 (two) times daily. [facility] insulin glarginetommyrec.anlog (TOUJEO SOLOSTAR U-300 INSULIN SC) 06-13 23:47: 36 Yes 18U inject 18 Units under the skin daily. [facility] gabapentin 600 mg tablet 06-13 23:47: 36 Yes 600mg Take 600 mg by mouth 2 (two) times daily. [facility] cyanocobala min, vitamin B-12, (VITAMIN B12 ORAL) 06-13 23:47: 36 Yes Take by mouth daily. [facility] ferrous sulfate (IRON ORAL) 06-13 23:47: 36 Yes Take by mouth daily. [facility] multivitami n tablet 06-13 23:47: 36 Yes 1{tbl} Take 1 tablet by mouth daily. [facility] cyanocobala min, vitamin B-12, (VITAMIN B12 ORAL) 06-13 23:47: 36 Yes Take by mouth daily. [facility] METFORMIN HCL (METFORMIN ORAL) 06-13 23:47: 36 Yes 500mg Take 500 mg by mouth 2 (two) times daily. [facility] DULAGLUTIDE (TRULICITY SC) 06-13 23:47: 36 Yes 600mg inject 600 mg under the skin 2 (two) times daily. [facility] insulin glarginetommyrec.anlog (TOUJEO SOLOSTAR U-300 INSULIN SC) 06-13 23:47: 36 Yes 18U inject 18 Units under the skin daily. [facility] gabapentin 600 mg tablet 06-13 23:47: 36 Yes 600mg Take 600 mg by mouth 2 (two) times daily. [facility] cyanocobala min, vitamin B-12, (VITAMIN B12 ORAL) 06-13 23:47: 36 Yes Take by mouth daily. [facility] ferrous sulfate (IRON ORAL) 06-13 23:47: 36 Yes Take by mouth daily. [facility] ferrous sulfate (IRON ORAL) 06-13 23:47: 36 Yes Take by mouth daily. [facility] multivitami n tablet 06-13 23:47: 36 Yes 1{tbl} Take 1 tablet by mouth daily. [facility] METFORMIN HCL (METFORMIN ORAL) 06-13 23:47: 36 Yes 500mg Take 500 mg by mouth 2 (two) times daily. [facility] multivitami n tablet 06-13 23:47: 36 Yes 1{tbl} Take 1 tablet by mouth daily. [facility] DULAGLUTIDE (TRULICITY SC) 06-13 23:47: 36 Yes 600mg inject 600 mg under the skin 2 (two) times daily. [facility] insulin glarginetommyrec.anlog (DEMETRIS SOLOSTAR U-300 INSULIN SC) 06-13 23:47: 36 Yes 18U inject 18 Units under the skin daily. [facility] gabapentin 600 mg tablet 06-13 23:47: 36 Yes 600mg Take 600 mg by mouth 2 (two) times daily. [facility] cyanocobala min, vitamin B-12, (VITAMIN B12 ORAL) 06-13 23:47: 36 Yes Take by mouth daily. [facility] ferrous sulfate (IRON ORAL) 06-13 23:47: 36 Yes Take by mouth daily. [facility] multivitami n tablet 06-13 23:47: 36 Yes 1{tbl} Take 1 tablet by mouth daily. [facility] METFORMIN HCL (METFORMIN ORAL) 06-13 23:47: 36 Yes 500mg Take 500 mg by mouth 2 (two) times daily. [facility] DULAGLUTIDE (TRULICITY SC) 06-13 23:47: 36 Yes 600mg inject 600 mg under the skin 2 (two) times daily. [facility] insulin glarginetommyrec.anlog (TOUJEO SOLOSTAR U-300 INSULIN SC) 06-13 23:47: 36 Yes 18U inject 18 Units under the skin daily. [facility] gabapentin 600 mg tablet 06-13 23:47: 36 Yes 600mg Take 600 mg by mouth 2 (two) times daily. [facility] cyanocobala min, vitamin B-12, (VITAMIN B12 ORAL) 06-13 23:47: 36 Yes Take by mouth daily. [facility] ferrous sulfate (IRON ORAL) 06-13 23:47: 36 Yes Take by mouth daily. [facility] multivitami n tablet 06-13 23:47: 36 Yes 1{tbl} Take 1 tablet by mouth daily. [facility] METFORMIN HCL (METFORMIN ORAL) 06-13 23:47: 36 Yes 500mg Take 500 mg by mouth 2 (two) times daily. [facility] DULAGLUTIDE (TRULICITY SC) 06-13 23:47: 36 Yes 600mg inject 600 mg under the skin 2 (two) times daily. [facility] insulin glarginetommy.rec.anlog (TOUJEO SOLOSTAR U-300 INSULIN SC) 06-13 23:47: 36 Yes 18U inject 18 Units under the skin daily. [facility] gabapentin 600 mg tablet 06-13 23:47: 36 Yes 600mg Take 600 mg by mouth 2 (two) times daily. [facility] cyanocobala min, vitamin B-12, (VITAMIN B12 ORAL) 06-13 23:47: 36 Yes Take by mouth daily. [facility] ferrous sulfate (IRON ORAL) 06-13 23:47: 36 Yes Take by mouth daily. [facility] multivitami n tablet 06-13 23:47: 36 Yes 1{tbl} Take 1 tablet by mouth daily. [facility] METFORMIN HCL (METFORMIN ORAL) 06-13 23:47: 36 Yes 500mg Take 500 mg by mouth 2 (two) times daily. [facility] DULAGLUTIDE (TRULICITY SC) 06-13 23:47: 36 Yes 600mg inject 600 mg under the skin 2 (two) times daily. [facility] insulin glarginetommyrec.anlog (TOUJEO SOLOSTAR U-300 INSULIN SC) 06-13 23:47: 36 Yes 18U inject 18 Units under the skin daily. [facility] gabapentin 600 mg tablet 06-13 23:47: 36 Yes 600mg Take 600 mg by mouth 2 (two) times daily. [facility] cyanocobala min, vitamin B-12, (VITAMIN B12 ORAL) 06-13 23:47: 36 Yes Take by mouth daily. [facility] ferrous sulfate (IRON ORAL) 06-13 23:47: 36 Yes Take by mouth daily. [facility] multivitami n tablet 06-13 23:47: 36 Yes 1{tbl} Take 1 tablet by mouth daily. [facility] METFORMIN HCL (METFORMIN ORAL) 06-13 23:47: 36 Yes 500mg Take 500 mg by mouth 2 (two) times daily. [facility] DULAGLUTIDE (TRULICITY SC) 06-13 23:47: 36 Yes 600mg inject 600 mg under the skin 2 (two) times daily. [facility] insulin glarginetommy.rec.anlog (TOUJEO SOLOSTAR U-300 INSULIN SC) 06-13 23:47: 36 Yes 18U inject 18 Units under the skin daily. [facility] acute hospital gabapentin 600 mg tablet 06-13 23:47: 36 Yes 600mg Take 600 mg by mouth 2 (two) times daily. [facility] acute hospital cyanocobala min, vitamin B-12, (VITAMIN B12 ORAL) 06-13 23:47: 36 Yes Take by mouth daily. [facility] acute hospital ferrous sulfate (IRON ORAL) 06-13 23:47: 36 Yes Take by mouth daily. [facility] acute hospital multivitami n tablet 06-13 23:47: 36 Yes 1{tbl} Take 1 tablet by mouth daily. [facility] acute hospital METFORMIN HCL (METFORMIN ORAL) 06-13 23:47: 36 Yes 500mg Take 500 mg by mouth 2 (two) times daily. [facility] acute hospital DULAGLUTIDE (TRULICITY SC) 06-13 23:47: 36 Yes 600mg inject 600 mg under the skin 2 (two) times daily. [facility] acute hospital insulin glarginetommyrec.anlog (TOUJEO SOLOSTAR U-300 INSULIN SC) 06-13 23:47: 36 Yes 18U inject 18 Units under the skin daily. [facility] acute hospital gabapentin 600 mg tablet 06-13 23:47: 36 Yes 600mg Take 600 mg by mouth 2 (two) times daily. [facility] acute hospital cyanocobala min, vitamin B-12, (VITAMIN B12 ORAL) 06-13 23:47: 36 Yes Take by mouth daily. [facility] acute hospital ferrous sulfate (IRON ORAL) 06-13 23:47: 36 Yes Take by mouth daily. [facility] acute hospital multivitami n tablet 06-13 23:47: 36 Yes 1{tbl} Take 1 tablet by mouth daily. General acute hospital METFORMIN HCL (METFORMIN ORAL) 06-13 23:47: 36 Yes 500mg Take 500 mg by mouth 2 (two) times daily. [facility] acute hospital DULAGLUTIDE (TRULICITY SC) 06-13 23:47: 36 Yes 600mg inject 600 mg under the skin 2 (two) times daily. [facility] acute hospital insulin glarginetommyrec.anlog (TOUJEO SOLOSTAR U-300 INSULIN SC) 06-13 23:47: 36 Yes 18U inject 18 Units under the skin daily. [facility] acute hospital gabapentin 600 mg tablet 06-13 23:47: 36 Yes 600mg Take 600 mg by mouth 2 (two) times daily. [facility] acute hospital cyanocobala min, vitamin B-12, (VITAMIN B12 ORAL) 06-13 23:47: 36 Yes Take by mouth daily. [facility] acute hospital ferrous sulfate (IRON ORAL) 06-13 23:47: 36 Yes Take by mouth daily. [facility] acute hospital multivitami n tablet 06-13 23:47: 36 Yes 1{tbl} Take 1 tablet by mouth daily. [facility] acute hospital METFORMIN HCL (METFORMIN ORAL) 06-13 23:47: 36 Yes 500mg Take 500 mg by mouth 2 (two) times daily. [facility] acute hospital DULAGLUTIDE (TRULICITY SC) 06-13 23:47: 36 Yes 600mg inject 600 mg under the skin 2 (two) times daily. [facility] acute hospital insulin glarginetommy mFlorencerec.anlog (TOUJEO SOLOSTAR U-300 INSULIN SC) 06-13 23:47: 36 Yes 18U inject 18 Units under the skin daily. [facility] acute hospital clopidogrel (PLAVIX) 75 mg tablet 06-13 00:00: 00 Yes [id number] 75mg Take 1 tablet by mouth daily. [facility] acute hospital clopidogrel (PLAVIX) 75 mg tablet 06-13 00:00: 00 Yes [id number] 75mg Take 1 tablet by mouth daily. [facility] acute hospital clopidogrel (PLAVIX) 75 mg tablet 06-13 00:00: 00 04-25 00:00 :00 No [id number] 75mg Take 1 tablet by mouth daily. [facility] acute hospital clopidogrel (PLAVIX) 75 mg tablet 06-13 00:00: 00 04-25 00:00 :00 No [id number] 75mg Take 1 tablet by mouth daily. General acute hospital Vital Signs Vital Name Observation Time Observation Value Comments S césar Systolic blood pressure 2020-02-03 21:32:00 132 mm[Hg] [facility] acute hospital Diastolic blood pressure 2020-02-03 21:32:00 79 mm[Hg] [facility] acute hospital Heart rate 2020-02-03 21:32:00 114 /min [facility] Body temperature 2020-02-03 21:32:00 36.72 [facility] Respiratory rate 2020-02-03 21:32:00 18 /min [facility] Body height 2020-02-03 21:32:00 154.9 cm [facility] Body weight 2020-02-03 21:32:00 64.411 kg [facility] BMI 2020-02-03 21:32:00 26.83 kg/m2 [facility] Systolic blood pressure 2020-02-03 21:32:00 132 mm[Hg] General acute hospital Diastolic blood pressure 2020-02-03 21:32:00 79 mm[Hg] General acute hospital Heart rate 2020-02-03 21:32:00 114 /min [facility] Body temperature 2020-02-03 21:32:00 36.72 [facility] Respiratory rate 2020-02-03 21:32:00 18 /min [facility] Body height 2020-02-03 21:32:00 154.9 cm [facility] Body weight 2020-02-03 21:32:00 64.411 kg [facility] BMI 2020-02-03 21:32:00 26.83 kg/m2 [facility] Systolic blood pressure 2020-01-06 19:24:00 145 mm[Hg] General acute hospital Diastolic blood pressure 2020-01-06 19:24:00 80 mm[Hg] General acute hospital Heart rate 2020-01-06 19:24:00 97 /min [facility] Body temperature 2020-01-06 19:15:00 36.17 [facility] Respiratory rate 2020-01-06 19:15:00 18 /min [facility] Body weight 2020-01-06 19:15:00 63.866 kg [facility] BMI 2020-01-06 19:15:00 26.60 kg/m2 [facility] Systolic blood pressure 2019-12-09 14:33:00 161 mm[Hg] General acute hospital Diastolic blood pressure 2019-12-09 14:33:00 83 mm[Hg] General acute hospital Heart rate 2019-12-09 14:31:00 84 /min [facility] Body weight 2019-12-09 14:31:00 63.141 kg [facility] BMI 2019-12-09 14:31:00 26.30 kg/m2 [facility] Systolic blood pressure 2019-11-19 14:29:00 149 mm[Hg] General acute hospital Diastolic blood pressure 2019-11-19 14:29:00 89 mm[Hg] General acute hospital Heart rate 2019-11-19 14:29:00 8 /min [facility] Body temperature 2019-11-19 14:29:00 36.56 [facility] Respiratory rate 2019-11-19 14:29:00 18 /min [facility] Body weight 2019-11-19 14:29:00 62.869 kg [facility] BMI 2019-11-19 14:29:00 26.19 kg/m2 [facility] Systolic blood pressure 2019-04-26 16:07:00 133 mm[Hg] General acute hospital Diastolic blood pressure 2019-04-26 16:07:00 80 mm[Hg] General acute hospital Heart rate 2019-04-26 16:07:00 80 /min [facility] Body temperature 2019-04-26 16:07:00 36.83 [facility] Respiratory rate 2019-04-26 16:07:00 20 /min [facility] Body height 2019-04-26 16:07:00 154.9 cm [facility] Body weight 2019-04-26 16:07:00 61.236 kg [facility] BMI 2019-04-26 16:07:00 25.51 kg/m2 [facility] Oxygen saturation in Arterial blood by Pulse oximetry 2019-04-26 16:07:00 98 /min [facility] Procedures Procedure Date / Time Performed Performing Clinician Source REFERRAL- REQUEST/RESPONSE 2020-03-16 06:01:00 D galina Unassigned, Burg[place] [facility] POCT URINALYSIS AUTO 2020-02-03 21:34:00 Sravan Maria [facility] POCT URINALYSIS AUTO 2020-01-06 19:19:00 Sravan Maria [facility] DISCLOSURE AND CONSENT, MEDICAL AND SURGICAL PROCEDURES 2020-01-06 06:01:00 Doctor Unassigned, [place] [facility] SCANNED LAB RESULTS 2019-12-09 05:01:00 Doctor Elisa nassigned, [place] [facility] ASSIGNMENT OF BENEFITS 2019-10-25 14:30:37 Docto r Unassigned, Burgin [facility] REFERRAL- REQUEST/RESPONSE 2019-10-22 05:01:00 D galina Unassigned, [place] [facility] NO SHOW OR MISSED APPOINTMENT POLICY ACKNOWLEDGEMENT 2018-10-26 14:15:17 Doctor Unassigned, [place]in [facility] Encounters Start Date/Time End Date/Time Encounter Type Admission Type Attending Clinicians Care Facility Care Department Encounter ID Source 2020-06-02 16:30:00 2020-06-02 16:30:00 Outpatient ALISON RAMÍREZ [facility] [id number] General acute hospital 2020-05-22 08:30:00 2020-05-22 08:30:00 Outpatient LINDA BRAVO [facility] [id number] General acute hospital 2020-05-20 14:30:00 2020-05-20 14:30:00 Outpatient ZACHARY OROZCO [facility] [id number] General acute hospital 2020-05-18 09:00:00 2020-05-18 09:00:00 Outpatient LINDA BRAVO [facility] [id number] General acute hospital 2020-05-18 00:00:00 2020-05-18 00:00:00 Outpatient LINDA BRAVO [facility] [id number] General acute hospital 2020-05-13 15:30:00 2020-05-13 15:30:00 Outpatient R ZACHARY BENITEZ [facility] [id number] General acute hospital 2020-05-04 13:30:00 2020-05-04 13:30:00 Outpatient R ZACHARY BENITEZ [facility] [id number] General acute hospital 2020-03-16 00:00:00 2020-03-16 00:00:00 Orders Only Doctor Unassigned, Burgin [facility] 1.2840.114 350.1.13.10 4.2.7.2.686 [id number] General acute hospital 2020-02-10 00:00:00 2020-02-10 00:00:00 [id number] [facility] acute hospital 2020-02-03 15:06:44 2020-02-03 15:40:06 Office Visit Crow [facility] [place] [place] Building 1.2840.114 350.1.13.10 4.2.7.2.686 [id number] 2020-02-03 15:06:44 2020-02-03 15:40:06 Office Visit Crow [facility] [place] [place] Building 1.2840.114 350.1.13.10 4.2.7.2.686 [id number] General acute hospital 2020-02-03 15:30:00 2020-02-03 15:30:00 Outpatient R CROW [facility] [id number] General acute hospital 2020-01-06 14:59:24 2020-01-06 15:14:[address] Servicer [facility] 2, [facility] 1.2.840.114 350.1.13.10 4.2.7.2.686 [id number] General acute hospital 2020-01-06 13:01:50 2020-01-06 14:38:55 Office Visit Crow Odalis Rm, Adc Surg Spec Procedure [facility] Building 1.2.840.114 350.1.13.10 4.2.7.2.686 [id number] General acute hospital 2020-01-06 13:30:00 2020-01-06 13:30:00 [facility] [id number] [facility] acute hospital 2020-01-06 00:00:00 2020-01-06 00:00:00 Orders Only Doctor Unassigned, Burgin [facility] 1.2.840.114 350.1.13.10 4.2.7.2.686 [id number] General acute hospital 2019-12-16 00:00:00 2019-12-16 00:00:00 Outpatient R ODALIS MARIA [facility] [id number] General acute hospital 2019-12-12 00:00:00 2019-12-12 00:00:00 Telephone Crow [facility] [id number] 350.1.13.10 4.2.7.2.686 [id number] General acute hospital 2019-12-09 10:23:48 2019-12-09 10:38:[address] Servicer Visit 2, [facility] 1.2.840.114 350.1.13.10 4.2.7.2.686 [id number] General acute hospital 2019-12-09 08:51:27 2019-12-09 10:01:32 Office Visit Odalis Maria [facility] Building 1.2.840.114 350.1.13.10 4.2.7.2.686 [id number] General acute hospital 2019-12-09 09:30:00 2019-12-09 09:30:00 Outpatient R ODALIS MARIA [facility] [id number] General acute hospital 2019-12-09 00:00:00 2019-12-09 00:00:00 Orders Only Doctor Unassigned, Burgin [facility] 1.0.114 350.1.13.10 4.2.7.2.686 [id number] General acute hospital 2019-11-29 08:30:00 2019-11-29 08:30:00 Outpatient R NAE HERZOGIG [facility] [id number] General acute hospital 2019-11-19 09:02:22 2019-11-19 10:06:49 Office Visit Linda Mcfarland [facility] 1..114 350.1.13.10 4.2.7.2.686 [id number] General acute hospital 2019-11-19 09:30:00 2019-11-19 09:30:00 Outpatient R LINDA MCFARLAND [facility] [id number] General acute hospital 2019-10-29 08:00:00 2019-10-29 08:00:00 Outpatient R LINDA MCFARLAND [facility] [id number] General acute hospital 2019-10-25 10:00:00 2019-10-25 10:00:00 Outpatient R BRENDA RINCON [facility] [id number] General acute hospital 2019-10-25 00:00:00 2019-10-25 00:00:00 Letter (Out) Papo Mcfadden [facility] 1..114 350.1.13.10 4.2.7.2.686 [id number] General acute hospital 2019-10-25 00:00:00 2019-10-25 00:00:00 Orders Only Doctor Unassigned, Burgin [facility] 1..114 350.1.13.10 4.2.7.2.686 [id number] General acute hospital 2019-10-25 00:00:00 2019-10-25 00:00:00 Letter (Out) Papo Mcfdaden [facility] 1.2840.114 350.1.13.10 4.2.7.2.686 [id number] General acute hospital 2019-10-22 00:00:00 2019-10-22 00:00:00 Orders Only Doctor Unassigned, Burgin [facility] 1.2840.114 350.1.13.10 4.2.7.2.686 [id number] General acute hospital 2019-05-09 10:00:00 2019-05-09 10:00:00 Outpatient FREDY NASCIMENTO [facility] [id number] General acute hospital 2019-04-26 09:26:44 2019-04-26 10:15:52 Office Visit Linda Mcfarland [facility] 1.2.840.114 350.1.13.10 4.2.7.2.686 [id number] General acute hospital 2019-04-26 09:15:00 2019-04-26 09:15:00 Outpatient LINDA BRAVO [facility] [id number] General acute hospital 2019-04-25 13:00:00 2019-04-25 13:00:00 Outpatient BRENDA VANCE [facility] [id number] General acute hospital 2018-10-26 09:15:33 2018-10-26 09:49:36 Office Visit Linda Mcfarland [facility] 1.2.840.114 350.1.13.10 4.2.7.2.686 [id number] General acute hospital 2018-10-26 00:00:00 2018-10-26 00:00:00 Orders Only Doctor Unassigned, Burgin [facility] 1.2840.114 350.1.13.10 4.2.7.2.686 [id number] General acute hospital Results Test Description Test Time Test Comments Results Result Co mments Source [facility] [id number] 21:35:00 * Test Item Value Reference Range Interpretation Comme nts POCT U SP GRAV (test code = 3255) 1.020 mg/dl 1.005-1.025 POCT PH U (test code = 3254) 7.0 mg/dl 5-8 POCT U LEUK EST (test code = 3263) negative Negative - Negative POCT U NIT (test code = 3262) negative Negative - Negati ve POCT U PROT (test code = 3259) Negative - Negative POCT U GLU (test code = 3256) Negative - Negati ve POCT U KETONE (test code = 3258) negative Negative - Negative POCT U UROBILI (test code = 3260) 0.2 mg/dl 0.2-1 POCT U BILI (test code = 3261) negative Negative - Negative POCT U BLD (test code = 3257) moderate Negative - Negati ve POCT U COLOR (test code = 3266) yellow POCT U APPEAR (test code = 3267) clear [facility], [id number] 19:21:00 * Test Item Value Reference Range Interpretation Comme nts POCT U SP GRAV (test code = 3255) 1.025 mg/dl 1.005-1.025 POCT PH U (test code = 3254) 6.5 mg/dl 5-8 POCT U LEUK EST (test code = 3263) negative Negative - Negative POCT U NIT (test code = 3262) negative Negative - Negati ve POCT U PROT (test code = 3259) Negative - Negative POCT U GLU (test code = 3256) Negative - Negati ve POCT U KETONE (test code = 3258) negative Negative - Negative POCT U UROBILI (test code = 3260) 1.0 mg/dl 0.2-1 POCT U BILI (test code = 3261) negative Negative - Negative POCT U BLD (test code = 3257) small Negative - Negati ve POCT U COLOR (test code = 3266) yellow POCT U APPEAR (test code = 3267) clear [facility], [id number] 19:21:00 * Test Item Value Reference Range Interpretation Comme nts POCT U SP GRAV (test code = 3255) 1.025 mg/dl 1.005-1.025 POCT PH U (test code = 3254) 6.5 mg/dl 5-8 POCT U LEUK EST (test code = 3263) negative Negative - Negative POCT U NIT (test code = 3262) negative Negative - Negati ve POCT U PROT (test code = 3259) Negative - Negative POCT U GLU (test code = 3256) Negative - Negati ve POCT U KETONE (test code = 3258) negative Negative - Negative POCT U UROBILI (test code = 3260) 1.0 mg/dl 0.2-1 POCT U BILI (test code = 3261) negative Negative - Negative POCT U BLD (test code = 3257) small Negative - Negati ve POCT U COLOR (test code = 3266) yellow POCT U APPEAR (test code = 3267) clear [facility]
[2023-02-14] MEDS ORDERED: NA CHLORIDE 0.9% 1,000 ML ONE ×2 (10:47→20:01)
[2023-02-14 10:57] LABS: Absolute Lymphocytes (CBC) 0.3 K/uL (0.7-4.9); Hematocrit 40.5 % (39.6-49.0); Lymphocytes % 1.9 % (15.3-44.8); MCV 89.6 fL (80-100); MPV 10.3 fL (7.6-11.3); Platelets 257 thou/uL (152-406); RBC Red Blood Cell Count 4.52 M/uL (4.33-5.43)
[2023-02-14 11:20] LABS: Albumin 3.1 g/dL (3.4-5.0); Bilirubin Total 0.8 mg/dL (0.2-1.0); Potassium 4.6 mEq/L (3.5-5.1); Protein, Total 7.7 g/dL (6.4-8.2)
--- NOTE | 2023-02-14 11:20 | RAD REPORT ---
EXAM DESCRIPTION: CT - Head Brain Wo Cont - 02/14/2023 10:32 am CLINICAL HISTORY: AMS COMPARISON: Head Brain Wo Cont dated 02/26/2021; Head Brain Wo Cont dated 12/05/2016; Abdomen Pelvis Wo Contrast dated 02/14/2023; Chest Single View dated 02/14/2023 TECHNIQUE: Noncontrast head CT images ad were obtained without IV contrast. Multiplanar reformats we re generated and reviewed. All CT scans are performed using dose optimization technique as appropriate and may include automated exposure control or mA/KV adjustment according to patient size. FINDINGS: No intracranial hemorrhage, mass, or edema. Midline structures are unremarkable. Moderate diffuse parenchymal volume loss. Ventricular caliber is stable. Patchy periventricular and deep white matter hypodensities, stable in extent and nonspecific, most batres ggestive of chronic small vessel ischemic changes. Mckeon-white matter differentiation is preserved, without evidence of acute infarct. No abnormal extra- axial fluid collections. Mastoid air cells and visualized portions of the paranasal sinuses are clear. No acute bony findings. IMPRESSION: No evidence of an acute intracranial process. Chronic findings as above.
--- NOTE | 2023-02-14 11:23 | RAD REPORT ---
EXAM DESCRIPTION: CT - Abdomen Pelvis Wo Contrast - 02/14/2023 10:32 am CLINICAL HISTORY: ABD PAIN COMPARISON: Abdomen Pelvis Wo Contrast dated 09/27/2019 TECHNIQUE: Thin cut axial CT imaging of the abdomen and pelvis was performed without IV contrast. Mu ltiplanar reformats were generated and reviewed. All CT scans are performed using dose optimization technique as appropriate and may include automated exposure control or mA/KV adjustment according to patient size. FINDINGS: Patchy bibasilar airspace opacities more pronounced in the right lower lobe concerning for pneumonia. The liver, spleen, adrenal glands, and pancreas show no suspicious findings. Gallbladder shows mildly hyperdense layering sludge Symmetric renal contour, without suspicious parenchymal findings within limits of noncontrast techniq ue. No evidence of radiopaque calculi or hydroureteronephrosis. No dilated bowel loops or bowel wall thickening. Large stool burden in the rectum. No free air, free fluid or inflammatory stranding. No hernia, mass or bulky lymphadenopathy. The urinary bladder is wit hout significant finding. Marked prostatomegaly. No suspicious bony findings. Heterotopic opacification in the left gluteal region extending causing g reater trochanter. IMPRESSION: Patchy bibasilar airspace opacities worse on the right, concerning for pneumonia. No acute intra-abdominal process. Marked prostatomegaly. Large stool burden in the rectum.
--- NOTE | 2023-02-14 11:42 | RAD REPORT ---
EXAM DESCRIPTION: RADChest Single View02/14/2023 10:57 am CLINICAL HISTORY: AMS COMPARISON: Chest Pa And Lat (2 Views) dated 05/07/2019; Chest Single View dated 12/05/2016 TECHNIQUE: Portable AP view of the chest. FINDINGS: Patchy right basilar airspace opacities new since the prior exam. Left lung again shows hy perlucency and hyperinflation. No pneumothorax or effusion. The cardiomediastinal contours are unrem arkable. IMPRESSION: Patchy right basilar airspace opacities concerning for developing pneumonia.
[2023-02-14] MEDS ORDERED: CEFTRIAXONE 1000 MG/VIAL ONE (11:56)
[2023-02-14 11:57] LABS: SARS-CoV-2 Antigen Rapid Res Negative (Negative)
[2023-02-14] MEDS ORDERED: AZITHROMYCIN 500 MG INJ IVPB ONE (11:57)
[2023-02-14] MEDS ORDERED: NA CHLORIDE 0.9% 250 ML ONE (11:57)
[2023-02-14 12:06] LABS: Platelet Estimate ADEQ; Platelets, Giant PRESENT
[2023-02-14 12:07] LABS: Blood Morphology Comment NOT SEEN (NOT SEEN)
--- NOTE | 2023-02-14 12:26 | EDPHYS ---
Physician Documentation [facility] Name: Jagdish Starks Jr Age: 72 yrs Sex: Male : 1950 Arrival Date: 02/14/2023 Time: 10:18 Bed 4 Private MD: ED Physician Real Diaz HPI: 02/14 12:19 This 72 yrs old Black Male presents to ER via EMS with complaints of General Weakness, rn AMS. 12:19 The patient presents with confusion, disorientation. Onset: The symptoms/episode rn began/occurred at an unknown time. Possible causes: unknown. Current symptoms: In the emergency department the patient's symptoms have improved. The patient has not experienced similar symptoms in the past. Family went to check on patient, found him underneath his bed covered in feces and urine. Patient has no complaints. Patient is alert and oriented to person and place but not time. No fever reported. No trauma noted.. Historical: - Allergies: 10:30 No Known Allergies; tl4 - Home Meds: 10:30 levemir [Active]; tl4 - PMHx: 10:30 Diabetes - IDDM; tl4 - Immunization history:: Adult Immunizations unknown. - Social history:: Smoking status: Patient reports the use of cigarette tobacco products, smokes one pack cigarettes per day. - Family history:: not pertinent. - Hospitalizations: : No recent hospitalization is reported. ROS: 12:19 Constitutional: Negative for fever, chills, and weight loss, Eyes: Negative for injury, rn pain, redness, and discharge, Neck: Negative for injury, pain, and swelling, Cardiovascular: Negative for chest pain, palpitations, and edema, Respiratory: Negative for shortness of breath, cough, wheezing, and pleuritic chest pain, Abdomen/GI: Negative for abdominal pain, nausea, vomiting, diarrhea, and constipation, Back: Negative for injury and pain, MS/Extremity: Negative for injury and deformity, Skin: Negative for injury, rash, and discoloration, Neuro: Negative for headache, weakness, numbness, tingling, and seizure, Exam: 12:19 Constitutional: Thin cachectic male, oriented to person place but not time. Follows rn all commands. Strong smell of urine Head/Face: Normocephalic, atraumatic. Eyes: Pupils equal round and reactive to light, extra-ocular motions intact. ENT: Dry mucous membranes. Cardiovascular: Regular rate and rhythm. No pulse deficits. Respiratory: No increased work of breathing, no retractions or nasal flaring. Abdomen/GI: Soft, non-tender MS/ Extremity: Pulses equal, no cyanosis. Neuro: Awake and alert, GCS 15. Cranial nerves II-XII grossly intact. Motor strength 4/5 in all extremities. Sensory grossly intact. Cerebellar exam normal. Normal gait. Vital Signs: 10:26 BP 150 / 130; Pulse 97; Resp 20; Temp 97.2; Pulse Ox 97% ; Weight 25.5 kg (M); Pain tl4 5/10; 11:03 BP 149 / 96; Pulse 93; Resp 20; Pulse Ox 96% on R/A; Pain 0/10; tl4 11:28 BP 125 / 68; Pulse 93; Resp 26; Pulse Ox 96% ; ld1 12:11 BP 129 / 79; Pulse 90; Resp 21; Pulse Ox 95% on R/A; tl4 13:12 BP 118 / 89; Pulse 87; Resp 22; Pulse Ox 97% on R/A; Pain 0/10; tl4 14:10 BP 124 / 72; Pulse 85; Resp 22; Pulse Ox 95% on R/A; tl4 15:07 BP 119 / 52; Pulse 87; Resp 23; Pulse Ox 95% on R/A; tl4 16:00 BP 107 / 54; Pulse 91; Resp 19; Pulse Ox 95% on R/A; tl4 17:00 BP 106 / 62; Pulse 90; Resp 21; Pulse Ox 93% on R/A; tl4 18:00 BP 110 / 85; Pulse 94; Resp 25; Pulse Ox 96% on R/A; tl4 21:35 BP 125 / 78; Pulse 84; Resp 16; Pulse Ox 96% on R/A; tl4 10:26 Pain Scale: Adult tl4 11:03 Pain Scale: Adult tl4 13:12 Pain Scale: Adult tl4 MDM: 10:22 Patient medically screened. rn 12:19 Differential Diagnosis: electrolyte abnormality, volume depletion, Dehydration, rn electrolyte issue, failure to thrive, intestinal infection, viral infection. Data reviewed: vital signs, nurses notes, lab test result(s), radiologic studies, CT scan, and as a result, I will admit patient. Consideration of Admission/Observation Patient was admitted/placed on observation. Escalation of care including admission/observation considered. Counseling: I had a detailed discussion with the patient and/or guardian regarding the historical points, exam findings, and any diagnostic results supporting the discharge/admit diagnosis, lab results, radiology results, the need for further work-up and treatment in the hospital. Response to treatment: the patient's symptoms have mildly improved after treatment, and as a result, I will admit patient. ED course: Patient with acute renal failure, bibasilar pneumonia, blood cultures/lactate/antibiotics ordered. Will admit to hospitalist service for further care.. 02/14 10:23 Order name: CBC with Diff; Complete Time: 12:18 02/14 10:23 Order name: CMP; Complete Time: 11:23 02/14 10:23 Order name: Lipase; Complete Time: 11:23 02/14 10:23 Order name: Urinalysis w/ reflexes 02/14 10:23 Order name: SARS RAPID; Complete Time: 12:18 02/14 10:23 Order name: Flu; Complete Time: 11:23 02/14 10:24 Order name: CK; Complete Time: 11:23 02/14 11:01 Order name: SARS-COV-2 RT PCR; Complete Time: 11:53 [facility] 12:07 Order name: Manual Differential; Complete Time: 12:18 [facility] 02/14 12:23 Order name: Blood Culture Adult (2) [facility] 02/14 12:23 Order name: Lactate w/ 2H reflex if indic.; Complete Time: 13:27 [facility] 02/14 16:00 Order name: Lactate Sepsis 2 HR Follow-up [facility] 02/14 17:39 Order name: CBC with Automated Diff [facility] 02/14 17:39 Order name: CBC with Automated Diff [facility] 02/14 17:39 Order name: Comprehensive Metabolic Panel [facility] 02/14 17:39 Order name: Comprehensive Metabolic Panel [facility] 02/14 10:23 Order name: CT Head Brain wo Cont; Complete Time: 11:23 02/14 10:23 Order name: CT Abd/Pelvis - Without Contrast; Complete Time: 11:53 02/14 10:24 Order name: XRAY Chest (1 view); Complete Time: 11:53 02/14 17:41 Order name: Chest For Pe Angio [facility] 02/14 17:41 Order name: Echo with Doppler [facility] 02/14 10:23 Order name: IV Saline Lock; Complete Time: 10:35 rn 02/14 10:23 Order name: Labs collected and sent; Complete Time: 10:49 rn Administered Medications: 10:50 Drug: NS 0.9% IV 1000 ml IV at 1 bolus Per protocol; 1000 mL bolus Route: IV; Rate: 1 tl4 bolus; Site: left antecubital; Delivery: Primary tubing; 15:09 Follow up: Response: No adverse reaction; IV Status: Completed infusion; IV Intake: tl4 1000ml 12:35 Drug: Rocephin IV 1 grams IV at calculated rate once; Given slow IV push per pharmacy ld1 instructions Route: IV; Rate: calculated rate; Site: left antecubital; 14:11 Follow up: Response: No adverse reaction; IV Status: Completed infusion tl4 12:35 Drug: Zithromax IVPB 500 mg IVPB once over 1 hrs; mix in 250 mL NS Route: IVPB; Infused ld1 Over: 1 hrs; Site: left antecubital; 14:10 Follow up: Response: No adverse reaction; IV Status: Completed infusion tl4 Disposition Summary: 02/14/23 12:25 Hospitalization Ordered Notes: Hospitalization Status: Inpatient Admission rn Provider: Elizabeth Lawson rn Condition: Stable rn Problem: new rn Symptoms: have improved rn Bed/Room Type: Standard rn Location: Telemetry/MedSurg (Inpatient)(02/14/23 20:52) rv1 Room Assignment: [facility](02/14/23 20:52) rv1 Diagnosis - Altered mental status, unspecified rn - Acute kidney failure, unspecified rn - Pneumonia, unspecified organism rn Forms: - Medication Reconciliation Form rn - SBAR form rn - Leadership Thank You Letter rn Signatures: Dispatcher [employer] Real Bunch MD MD rn Sims, Lauren, RN RN ld1 Hilary Beck rv1 Caitlin Miller, EXECUTIVE ADMINISTRATIVE ASST EXECUTIVE ADMINISTRATIVE ASST cm12 Alyson Stubbs mc5 Logdahl, Arian tl4 Corrections: (The following items were deleted from the chart) 13:45 12:25 Telemetry/MedSurg (Inpatient) rn mc5 13:45 12:25 rn mc5 20:52 13:45 [facility] ER HOLD mc5 rv1 20:52 13:45 ERHOLD- mc5 rv1
--- NOTE | 2023-02-14 12:26 | ER ---
Nurse's Notes [facility] Name: Jagdish Starks Jr Age: 72 yrs Sex: Male : 1950 Arrival Date: 02/14/2023 Time: 10:18 Bed 4 Private MD: Diagnosis: Altered mental status, unspecified;Acute kidney failure, unspecified;Pneumonia, unspecified organism Presentation: 02/14 10:26 Chief complaint: Patient states: EMS summoned by nephew for welfare check after patient tl4 was found covered in feces and urine under his bed. Pt states he had fallen and was unable to get himself up. Pt denies any complaints at this time. Pt has not been eating or drinking well for "a while". Coronavirus screen: Vaccine status: Patient reports being unvaccinated. At this time, the client does not indicate any symptoms associated with coronavirus-19. Ebola Screen: Patient negative for fever greater than or equal to 101.5 degrees Fahrenheit, and additional compatible Ebola Virus Disease symptoms Patient denies exposure to infectious person. Patient denies travel to an Ebola-affected area in the 21 days before illness onset. No symptoms or risks identified at this time. Initial Sepsis Screen: Does the patient meet any 2 criteria? No. Patient's initial sepsis screen is negative. Does the patient have a suspected source of infection? No. Patient's initial sepsis screen is negative. Risk Assessment: Do you want to hurt yourself or someone else? Patient reports no desire to harm self or others. Onset of symptoms is unknown. 10:26 Method Of Arrival: EMS: [facility] tl4 10:26 Acuity: PREETHI 3 tl4 Triage Assessment: 10:34 General: Appears unkempt, emaciated, malnourished, Behavior is calm, cooperative. tl4 Historical: - Allergies: 10:30 No Known Allergies; tl4 - Home Meds: 10:30 levemir [Active]; tl4 - PMHx: 10:30 Diabetes - IDDM; tl4 - Immunization history:: Adult Immunizations unknown. - Social history:: Smoking status: Patient reports the use of cigarette tobacco products, smokes one pack cigarettes per day. - Family history:: not pertinent. - Hospitalizations: : No recent hospitalization is reported. Screenin:31 [facility] ED Fall Risk Assessment (Adult) History of falling in the last 3 months, tl4 including since admission Yes- fall prone (multiple falls) (3 pts) Confusion or Disorientation No (0 pts) Intoxicated or Sedated No (0 pts) Impaired Gait Yes (1 pt) Mobility Assist Device Used No (0 pt) Altered Elimination No (0 pt) Score/Fall Risk Level 3 or more points = High Risk Oriented to surroundings, Maintained a safe environment, Educated pt \\T\\ family on fall prevention, incl call for assistance when getting out of bed, Assessed \\T\\ reinforced patient's understanding of fall precautions, Provided non-skid footwear, Hourly rounding (assess needs \\T\\ fall precautionary measures) done, Used gait belt as appropriate. Abuse screen: Denies threats or abuse. Denies injuries from another. Nutritional screening: Pt has poor diet and fluid intake. Pt very thin. Tuberculosis screening: No symptoms or risk factors identified. Assessment: 10:31 Reassessment: No changes from previously documented assessment. Patient and/or family tl4 updated on plan of care and expected duration. Pain level reassessed. Patient is alert, oriented x 3, equal unlabored respirations, skin warm/dry/pink. Pain: Denies pain. 12:08 Reassessment: No changes from previously documented assessment. Patient and/or family tl4 updated on plan of care and expected duration. Pain level reassessed. Patient is alert, oriented x 3, equal unlabored respirations, skin warm/dry/pink. Patient denies pain at this time. 14:36 Reassessment: No changes from previously documented assessment. Patient and/or family tl4 updated on plan of care and expected duration. Pain level reassessed. Patient is alert, oriented x 3, equal unlabored respirations, skin warm/dry/pink. 17:18 Reassessment: No changes from previously documented assessment. Patient and/or family tl4 updated on plan of care and expected duration. Pain level reassessed. Patient is alert, oriented x 3, equal unlabored respirations, skin warm/dry/pink. Vital Signs: 10:26 BP 150 / 130; Pulse 97; Resp 20; Temp 97.2; Pulse Ox 97% ; Weight 25.5 kg (M); Pain tl4 5/10; 11:03 BP 149 / 96; Pulse 93; Resp 20; Pulse Ox 96% on R/A; Pain 0/10; tl4 11:28 BP 125 / 68; Pulse 93; Resp 26; Pulse Ox 96% ; ld1 12:11 BP 129 / 79; Pulse 90; Resp 21; Pulse Ox 95% on R/A; tl4 13:12 BP 118 / 89; Pulse 87; Resp 22; Pulse Ox 97% on R/A; Pain 0/10; tl4 14:10 BP 124 / 72; Pulse 85; Resp 22; Pulse Ox 95% on R/A; tl4 15:07 BP 119 / 52; Pulse 87; Resp 23; Pulse Ox 95% on R/A; tl4 16:00 BP 107 / 54; Pulse 91; Resp 19; Pulse Ox 95% on R/A; tl4 17:00 BP 106 / 62; Pulse 90; Resp 21; Pulse Ox 93% on R/A; tl4 18:00 BP 110 / 85; Pulse 94; Resp 25; Pulse Ox 96% on R/A; tl4 21:35 BP 125 / 78; Pulse 84; Resp 16; Pulse Ox 96% on R/A; tl4 10:26 Pain Scale: Adult tl4 11:03 Pain Scale: Adult tl4 13:12 Pain Scale: Adult tl4 Vitals: 11:03 Cardiac Rhythm Assessment Regular Sinus rhythm. tl4 ED Course: 10:21 Patient arrived in ED. mc5 10:22 Real Diaz MD is Attending Physician. rn 10:25 Arian Rizo is Primary Nurse. tl4 10:30 Triage completed. tl4 10:31 Arm band placed on Patient placed in an exam room, on a stretcher. tl4 10:32 Patient has correct armband on for positive identification. Placed in gown. Bed in low tl4 position. Call light in reach. Side rails up X2. Provided Education on: ED process. Warm blanket given. Verbal reassurance given. 10:33 No provider procedures requiring assistance completed. Maintain EMS IV. Dressing tl4 intact. Good blood return noted. Site clean \\T\\ dry. Gauge \\T\\ site: 20g left AC. 10:35 CT Head Brain wo Cont In Process Unspecified. EDMS 10:35 CT Abd/Pelvis - Without Contrast In Process Unspecified. EDMS 10:48 Flu Sent. tl4 10:49 SARS RAPID Sent. tl4 10:49 CBC with Diff Sent. tl4 10:49 CMP Sent. tl4 10:49 Lipase Sent. tl4 10:59 XRAY Chest (1 view) In Process Unspecified. EDMS 12:25 Elizabeth Lawson MD is Hospitalizing Provider. rn 12:34 Lactate w/ 2H reflex if indic. Sent. ld1 12:34 Blood Culture Adult (2) Sent. ld1 13:09 Notified ED physician of a critical lab result(s). lactate 2.9. iw 18:35 Urinalysis w/ reflexes Sent. tl4 20:33 Inserted saline lock: 22 gauge in right forearm, using aseptic technique. jw7 21:07 Patient admitted, IV remains in place. bp Administered Medications: 10:50 Drug: NS 0.9% IV 1000 ml IV at 1 bolus Per protocol; 1000 mL bolus Route: IV; Rate: 1 tl4 bolus; Site: left antecubital; Delivery: Primary tubing; 15:09 Follow up: Response: No adverse reaction; IV Status: Completed infusion; IV Intake: tl4 1000ml 12:35 Drug: Rocephin IV 1 grams IV at calculated rate once; Given slow IV push per pharmacy ld1 instructions Route: IV; Rate: calculated rate; Site: left antecubital; 14:11 Follow up: Response: No adverse reaction; IV Status: Completed infusion tl4 12:35 Drug: Zithromax IVPB 500 mg IVPB once over 1 hrs; mix in 250 mL NS Route: IVPB; Infused ld1 Over: 1 hrs; Site: left antecubital; 14:10 Follow up: Response: No adverse reaction; IV Status: Completed infusion tl4 Medication: 10:34 VIS not applicable for this client. tl4 Intake: 15:09 IV: 1000ml; Total: 1000ml. tl4 Outcome: 12:25 Decision to Hospitalize by Provider. rn 21:07 Admitted to Med/surg accompanied by tech, via stretcher, Report called to JUVENTINO SMITH bp 21:07 Condition: stable 21:07 Instructed on the need for admit, 21:39 Patient left the ED. tl4 Signatures: Dispatcher [employer] EDMS aCss Velazquez RN RN iw Real Diaz MD MD rn Peltier, Brian RN ASRAH bp Betty Mejai RN RN ld1 Stella Moise RN RN jw7 Alyson Stubbs mc5 Logdashelly, Arian tl4
[2023-02-14] MEDS ORDERED: MORPHINE 2 MG/ML SYR IV PRN (17:35)
[2023-02-14] MEDS ORDERED: ONDANSETRON 4 MG/2 ML VIAL IV PRN (17:35)
[2023-02-14] MEDS ORDERED: ACETAMINOPHEN 500 MG TAB PO PRN (17:35)
[2023-02-14] MEDS ORDERED: HOME MED 1 EA UNK (Linaclotide [Linzess] 72 MCG Capsule) PO SCH (17:45)
[2023-02-14] MEDS: NA CHLORIDE 0.9% 1,000 ML IV SCH (18:00)
[2023-02-14 18:49] LABS: Specific Gravity 1.018 (1.005-1.030); Urine Bacteria None Seen /HPF (<20); Urine Bilirubin NEGATIVE (Negative); Urine Blood 3+ (Negative); Urine Clarity Turbid (Clear); Urine Color Light-Yellow (Yellow); Urine Glucose 3+ (Negative); Urine Protein 1+ (Negative); Urine RBC <5 /HPF (None Seen); Urine Urobilinogen Normal (Normal)
--- NOTE | 2023-02-14 19:47 | P.HP ---
Certification for Inpatient Patient admitted to: Inpatient With expected LOS: >2 Midnights Patient will require the following post-hospital care: None Practitioner: I am a practitioner with admitting privileges, knowledge of patient current condition, hospital course, and medical plan of care. Services: Services provided to patient in accordance with Admission requirements found in Title 42 Section 412.3 of the Code of Federal Regulations Patient History Date of Service: 02/14/23 History of Present Illness: Patient is a 72-year-old gentleman came to the hospital with confusion and disorientation. Patient was apparently found underneath his bed and he was covered in urine and feces when the family arrived to check on him. They had not heard from him in a couple of days so they became concerned. Patient was brought into the emergency room, and when we saw him he was cleaned and interacting much more appropriately. Patient states he has been losing a lot of weight for the last 8 months. He stopped smoking and drinking about a year ago. He said he was having a hard time swallowing so he had given drinking. He did not feel like smoking because it was expensive so he stopped smoking around the same time. Patient's strength has been declining and he is not really able to get around well. He is still having a lot of trouble with swallowing. He was not able to clear his own sputum. Patient has some acute renal insufficiency which appears to be prerenal. Patient will be admitted to the hospital for further evaluation. Allergies No Known Allergies Allergy (Unverified 06/02/15 11:10) Home Medications: Gabapentin [Gralise] 300 mg PO PRN 12/06/16 Linaclotide [Linzess] 72 mcg PO PRN 12/06/16 Magnesium Oxide [Mag 0X*] 400 mg PO DAILY 12/06/16 Metformin HCl 500 mg PO BID 12/06/16 - Past Medical/Surgical History Has patient received pneumonia vaccine in the past: Yes Diabetic: Yes -: Type 2 diabetes -: tobacco abuse -: cataract surgery - Family History Father Family History: Reviewed- Non-Contributory - Social History Smoking Status: Unknown if ever smoked Alcohol use: No CD- Drugs: No Place of Residence: Home Review of Systems 10-point ROS is otherwise unremarkable Physical Examination - Vital Signs Temperature: 98 F Blood Pressure: 140/80 Pulse: 80 Respirations: 18 Pulse Ox (%): 95 - Physical Exam General: Alert, In no apparent distress, Oriented x2, Cachectic, Disheveled HEENT: Atraumatic, PERRLA, Mucous membr. moist/pink, EOMI, Sclerae nonicteric Neck: Supple, 2+ carotid pulse no bruit, No LAD, Without JVD or thyroid abnormality Respiratory: Diminished, Rhonchi/gurgles Cardiovascular: Regular rate/rhythm, Normal S1 S2, Systolic murmur Gastrointestinal: Normal bowel sounds, Soft and benign, Non-distended, No tenderness Musculoskeletal: No clubbing, No swelling, No tenderness Integumentary: No rashes Neurological: Normal speech, Sensation intact, Cranial nerves 3-12 intact, Abnormal gait, Abnormal strength, Abnormal affect Lymphatics: No axilla or inguinal lymphadenopathy - Studies Laboratory Data (last 24 hrs) 02/14/23 02/14/23 10:43 10:43 WBC 18.20 H Hgb 13.3 L Hct 40.5 Plt Count 257 Sodium 139 Potassium 4.6 BUN 61 H Creatinine 2.42 H Glucose 342 H Total Bilirubin 0.8 AST 20 ALT 23 Alkaline Phosphatase 74 Lipase 16 Microbiology Data (last 24 hrs): 02/14/23 10:33 Nasopharnyx Influenza Type A Antigen Screen - Final 02/14/23 10:33 Nasopharnyx Influenza Type B Antigen Screen - Final Assessment & Plan - Problems (Diagnosis) (1) Bilateral pneumonia Current Visit: Yes Status: Acute (2) Aspiration pneumonia Current Visit: Yes Status: Acute (3) Acute kidney injury Current Visit: Yes Status: Acute (4) Type 2 diabetes mellitus Current Visit: Yes Status: Acute (5) Constipation Current Visit: Yes Status: Acute - Plan Plan: 1. Continue with aggressive IV hydration. Patient has lost quite a bit of weight and appears very emaciated and cachectic. Will do a malignancy workup. Patient with a large stool burden on CT imaging. Patient could have a colon malignancy. Will also check PSA as his prostate is quite large. Patient's lung sounds are abnormal and so plan to do a CT imaging study to evaluate for lung mass as patient with a longstanding history of tobacco abuse. Patient's long- term prognosis is poor. Patient will get physical therapy evaluation as well as speech therapy evaluation for dysphagia. Monitor hemodynamics closely. Patient will be admitted for inpatient hospitalization. I am thinking by the end of the workup patient may benefit from hospice care as he is very cachectic and emaciated and probably would not tolerate any kind of surgical procedure or any kind of aggressive malignancy treatment really well. Workup pending at this time and hopefully we can come up with a diagnosis to explain patient's signif icant decline over the last 6 months. Discharge Plan: Home Plan to discharge in: Greater than 2 days - Advance Directives Does patient have a Living Will: No Does patient have a Durable POA for Healthcare: No - Code Status/Comfort Care Code Status Assessed: Yes Code Status: Full Code Critical Care: No Time Spent Managing PTS Care (In Minutes): 45
[2023-02-14] MEDS ORDERED: METFORMIN HCL 500 MG PO SCH (21:00)
[2023-02-14] MEDS: LACTULOSE 20 GM/30 ML UCUP PO SCH (22:18)
[2023-02-15] MEDS: PIPER TAZO 3.375 GM in NA CHLORIDE 0.9% 100 ML IV SCH ×2 (01:00→12:21)
[2023-02-15] MEDS: METHYLPREDNISOLONE 40 MG INJ IV SCH ×3 (01:28→16:19)
[2023-02-15 01:35] VITALS: BMI 19.4
[2023-02-15] MEDS: ALBUTEROL 2.5 MG/3 ML NEB SOL NEB SCH ×4 (03:52→20:20)
[2023-02-15] MEDS: IPRATROPIUM BROM 0.5MG/2.5ML NEB SCH ×4 (03:52→20:20)
[2023-02-15 07:29] LABS: Absolute Lymphocytes (CBC) 0.4 K/uL (0.7-4.9); Hematocrit 35.5 % (39.6-49.0); MCV 88.8 fL (80-100); MPV 10.2 fL (7.6-11.3); Platelets 233 thou/uL (152-406)
[2023-02-15 07:44] LABS: Albumin 2.6 g/dL (3.4-5.0); Bilirubin Total 0.6 mg/dL (0.2-1.0); Carcinoembryonic Antigen 2.6 ng/mL (0-5.0); Potassium 4.3 mEq/L (3.5-5.1)
[2023-02-15 07:52] LABS: Thyroid Stimulating Hormone 1.22 uIU/mL (0.358-3.740)
[2023-02-15] MEDS ORDERED: PNEUMOCOCCAL VACCINE 0.5 ML IMVAC ONE (08:00)
[2023-02-15] MEDS ORDERED: INFLUENZA VACCINE (for 6+ mo) 0.5 ML DOSE IMVAC ONE (08:00)
[2023-02-15] MEDS: METFORMIN HCL 500 MG TAB PO SCH ×2 (08:00→16:15)
[2023-02-15] MEDS ORDERED: GLUCAGON 1 MG/VIAL IM PRN (08:42)
[2023-02-15] MEDS ORDERED: D50W 25 GM/50 ML SYRINGE IV PRN (08:42)
[2023-02-15] MEDS ORDERED: INSULIN REGULAR (HUMAN) 100 UNIT/ML SQ SCH ×2 (08:44→09:00)
[2023-02-15] MEDS: LACTULOSE 20 GM/30 ML UCUP PO SCH ×2 (08:47→21:00)
[2023-02-15] MEDS: MAGNESIUM OXIDE 400 MG TAB PO SCH (08:47)
[2023-02-15] MEDS ORDERED: D10W 125 ML IV PRN (08:50)
[2023-02-15] MEDS ORDERED: MAGNESIUM OXIDE 400 MG PO SCH ×2 (09:00)
[2023-02-15] MEDS: INSULIN REGULAR (HUMAN) 100 UNIT/ML SQ SCH ×4 (09:15→21:52)
[2023-02-15] MEDS: NA CHLORIDE 0.9% 1,000 ML IV SCH ×2 (09:15→21:52)
--- NOTE | 2023-02-15 09:57 | RAD REPORT ---
EXAM DESCRIPTION: CT - Thorax Wo Con - 02/15/2023 8:15 am CLINICAL HISTORY: evaluate hypoxemia; ?lung mass COMPARISON: Chest Single View dated 02/14/2023; Abdomen Pelvis Wo Contrast dated 02/14/2023 TECHNIQUE: Axial thin cut images of the chest were obtained without IV contrast. Multiplanar reforma ts were generated and reviewed. All CT scans are performed using dose optimization technique as appropriate and may include automated exposure control or mA/KV adjustment according to patient size. FINDINGS: Patchy consolidative airspace opacities bilaterally most pronounced throughout the posteri or aspects of the right upper and lower lobes. The basilar airspace opacities are not significantly c hanged compared to the recent abdomen CT. Moderate secretions along the right mainstem bronchus exten ding into branches to the upper and lower lobes. No pleural thickening or pleural effusion. No pneumo thorax. No abnormal mediastinal or hilar masses or lymphadenopathy seen. No significant aortic or pulmonary a rtery findings. Assessment is limited in the absence of IV contrast. No chest wall mass or abnormal axillary lymphadenopathy. Evaluation of the solid abdominal structures reveals no suspicious findings. IMPRESSION: Patchy consolidative airspace opacities bilaterally most pronounced throughout the poste rior aspects of the right upper and lower lobes, concerning for pneumonia.
[2023-02-16] MEDS: PIPER TAZO 3.375 GM in NA CHLORIDE 0.9% 100 ML IV SCH ×2 (00:25→11:59)
[2023-02-16] MEDS: METHYLPREDNISOLONE 40 MG INJ IV SCH ×3 (00:25→16:07)
[2023-02-16] MEDS: IPRATROPIUM BROM 0.5MG/2.5ML NEB SCH ×4 (01:48→19:50)
[2023-02-16] MEDS: ALBUTEROL 2.5 MG/3 ML NEB SOL NEB SCH ×4 (01:48→19:50)
--- NOTE | 2023-02-16 06:03 | P.PN ---
Subjective Date of Service: 02/15/23 Patient seen and examined. Patient's imaging studies are pending. Adult protective Services also involved in patient's care and they are recommending placement at this time which I am agreeable to doing as patient is very weak and unable to really care for himself. Patient does appear to have a malignancy and he is very emaciated and cachectic. Workup pending for possible malignancy. Review of Systems 10-point ROS is otherwise unremarkable Physical Examination - Vital Signs Temperature: 98.3 F Blood Pressure: 101/56 Pulse: 110 Respirations: 16 Pulse Ox (%): 98 - Physical Exam General: Alert, In no apparent distress, Cachectic HEENT: Atraumatic, PERRLA, EOMI Neck: Supple, JVD not distended Respiratory: Clear to auscultation bilaterally, Normal air movement Cardiovascular: Regular rate/rhythm, Normal S1 S2 Gastrointestinal: Normal bowel sounds, No tenderness Musculoskeletal: No tenderness Integumentary: No rashes Neurological: Abnormal gait, Abnormal speech - Studies Medications List Reviewed: Yes Assessment & Plan - Problems (Diagnosis) (1) Bilateral pneumonia Current Visit: Yes Status: Acute (2) Aspiration pneumonia Current Visit: Yes Status: Acute (3) Acute kidney injury Current Visit: Yes Status: Acute (4) Type 2 diabetes mellitus Current Visit: Yes Status: Acute (5) Constipation Current Visit: Yes Status: Acute - Plan Plan: 1. Continue with aggressive IV hydration. Patient has lost quite a bit of weight and appears very emaciated and cachectic. Will do a malignancy workup. Patient with a large stool burden on CT imaging. Patient could have a colon malignancy. Will also check PSA as his prostate is quite large. Patient's lung sounds are abnormal and so plan to do a CT imaging study to evaluate for lung mass as patient with a longstanding history of tobacco abuse. Patient's long-t erm prognosis is poor. Patient will get physical therapy evaluation as well as speech therapy evaluation for dysphagia. Monitor hemodynamics closely. Patient will be admitted for inpatient hospitalization. I am thinking by the end of the workup patient may benefit from hospice care as he is very cachectic and emaciated and probably would not tolerate any kind of surgical procedure or any kind of aggressive malignancy treatment really well. Workup pending at this time and hopefully we can come up with a diagnosis to explain patient's significant decline over the last 6 months. - Advance Directives Does patient have a Living Will: No Does patient have a Durable POA for Healthcare: No - Code Status/Comfort Care Code Status: Full Code
[2023-02-16] MEDS ORDERED: D5W 1,000 ML IV ONE (06:18)
[2023-02-16] MEDS ORDERED: SODIUM BICARB 50 MEQ/50ML VIAL ONE (06:18)
[2023-02-16] MEDS ORDERED: D5W 1,000 ML with NA BICARB 8.4% 50 MEQ IV SCH ×4 (07:00→08:00)
[2023-02-16] MEDS: MAGNESIUM OXIDE 400 MG TAB PO SCH (07:06)
[2023-02-16] MEDS: METFORMIN HCL 500 MG TAB PO SCH (07:06)
[2023-02-16] MEDS: SODIUM BICARB 325 MG TAB PO SCH ×2 (07:06→21:00)
[2023-02-16] MEDS: LACTULOSE 20 GM/30 ML UCUP PO SCH ×2 (07:06→21:00)
--- NOTE | 2023-02-16 07:16 | ECHO ---
HEIGHT: 5 ft 1 in WEIGHT: 103 lb 0 oz DATE OF STUDY: 02/15/[address]: Elizabeth Lawson MD 2-DIMENSIONAL: YES M.MODE: YES DOPPLER: YES COLOR FLOW: YES TDS: PORTABLE: YES DEFINITY: BUBBLE STUDY: DIAGNOSIS: CONGESTIVE HEART FAILURE CARDIAC HISTORY: CATHERIZATION: SURGERY: PROSTHETIC VALVE: PACEMAKER: MEASUREMENTS (cm) DIASTOLIC (NORMALS) SYSTOLIC (NORMALS) IVSd 0.9 (0.6-1.2) LA Diam (1.9-4.0) LVEF 67% LVIDd 3.3 (3.5-5.7) LVIDs 2.1 (2.0-3.5) %FS 36% LVPWd 1.0 (0.6-1.2) Ao Diam 2.5 (2.0-3.7) 2 DIMENSIONAL ASSESSMENT: RIGHT ATRIUM: NORMAL LEFT ATRIUM: NORMAL RIGHT VENTRICLE: NORMAL LEFT VENTRICLE: NORMAL TRICUSPID VALVE: NORMAL MITRAL VALVE: NORMAL PULMONIC VALVE: NORMAL AORTIC VALVE: NORMAL PERICARDIAL EFFUSION: NONE AORTIC ROOT: NORMAL LEFT VENTRICULAR WALL MOTION: NORMAL DOPPLER/COLOR FLOW: SEE BELOW COMMENTS: 1. NORMAL LEFT VENTRICULAR EJECTION FRACTION 55-60% WITH NORMAL WALL MOTION 2. GRADE I DIASTOLIC DYSFUNCTION 3. POOR WINDOWS TECHNOLOGIST: ANASTACIA RAMESH
--- NOTE | 2023-02-16 07:39 | P.PN ---
Subjective Date of Service: 02/16/23 History is limited due to confusion. Per RN, no issues overnight. He appears to be breathing comfortably. He denies any concerns this morning. Review of Systems is unable to be obtained (altered mental status) Physical Examination - Vital Signs Temperature: 98.3 F Blood Pressure: 101/56 Pulse: 110 Respirations: 16 Pulse Ox (%): 98 - Physical Exam General: Alert, Oriented x1 (to self) HEENT: Atraumatic, Sclerae nonicteric Neck: JVD not distended Respiratory: Diminished, Rhonchi/gurgles (scattered) Cardiovascular: No edema, Regular rate/rhythm, Normal S1 S2, No gallops, No rubs, No murmurs Gastrointestinal: Normal bowel sounds, Soft and benign, Non-distended, No tenderness, No rebound, No guarding Musculoskeletal: No clubbing Integumentary: No rashes Neurological: Normal speech, Normal strength at 5/5 x4 extr, Sensation intact, Cranial nerves 3-12 intact - Studies Medications List Reviewed: Yes Assessment And Plan - Plan # Severe Sepsis likely secondary to Mutlifocal Pneumonia (Aspiration?) - POA He met SIRS criteria based on HR > 90 bpm, RR > 20 breaths/min, and WBC > 12,000, and the suspected source is pulmonary. Severe sepsis is suspected due to concern for tissue hypoperfusion/organ dysfunction based on lactic acid > 2 mmol/L. - Modified barium swallow requested - Sepsis order set was initiated - Lactate was trend: 2.9 -> 2.2 - Blood cultures drawn - Broad spectrum antibiotics started: Piperacillin-Tazobactam - In regards to fluids: - 30 mL/kg of IV fluids was not administered given SBP > 90, MAP > 65, lactic acid < 4 # Acute Kidney Injury - Nephrology consulted - recommendations appreciated - Creatinine = 2.42 -> 2.20 - Urinalysis = 3+ glucose, 10-20 hyaline casts, 1+ protein - Monitor creatinine and urine output - If worsening, obtain renal ultrasound - Renally dose medications # Hyperglycemia in Type II Diabetes Mellitus - Discontinue home metformin given JOHAN and lactic acidosis - Correction scale insulin # Constipation - Continue linaclotide + as needed lactulose # Cachexia - He appears emaciated and cachectic on exam - Preliminary malignancy evaluation is in process - There is also concern about home safety. Will likely require placement - appreciate CM assistance - Nutrition consulted Andrea Zuniga M.D.
[2023-02-16] MEDS: INSULIN REGULAR (HUMAN) 100 UNIT/ML SQ SCH ×4 (08:06→22:02)
[2023-02-16] MEDS ORDERED: GABAPENTIN 300 MG PO PRN (09:00)
--- NOTE | 2023-02-16 13:53 | RAD REPORT ---
EXAM DESCRIPTION: RAD - Barium Swallow Modified - 02/16/2023 1:44 pm CLINICAL HISTORY: dysphagia COMPARISON: Abdomen Pelvis Wo Contrast dated 02/14/2023 TECHNIQUE: The patient was given liquid, semi-solid and solid forms of barium. Lateral view fluorosc opic imaging was performed in conjunction with speech pathology service. FINDINGS: Penetration identified. Though no tessa aspiration was identified, the extent of penetrati on and lack of clearing put the patient at significant risk and therefore the exam was terminated. Se e speech pathology note. Total fluoroscopy time: 1:06 Cumulative dose: 5.09 mGy
[2023-02-16] MEDS: D5W 1,000 ML with NA BICARB 8.4% 50 MEQ IV SCH ×2 (16:06)
[2023-02-17] MEDS: IPRATROPIUM BROM 0.5MG/2.5ML NEB SCH ×4 (01:45→19:00)
[2023-02-17] MEDS: ALBUTEROL 2.5 MG/3 ML NEB SOL NEB SCH ×4 (01:45→19:00)
[2023-02-17] MEDS: D5W 1,000 ML with NA BICARB 8.4% 50 MEQ IV SCH ×2 (02:19)
[2023-02-17] MEDS: PIPER TAZO 3.375 GM in NA CHLORIDE 0.9% 100 ML IV SCH ×2 (02:32→12:37)
[2023-02-17] MEDS: METHYLPREDNISOLONE 40 MG INJ IV SCH ×2 (02:32→07:59)
[2023-02-17 03:03] LABS: Absolute Lymphocytes (CBC) 0.3 K/uL (0.7-4.9); Hematocrit 29.8 % (39.6-49.0); Lymphocytes % 1.6 % (15.3-44.8); MCV 87.7 fL (80-100); MPV 10.3 fL (7.6-11.3); Platelets 206 thou/uL (152-406)
[2023-02-17 03:34] LABS: Phosphorus 1.6 mg/dL (2.5-4.9)
[2023-02-17 03:57] LABS: Magnesium 2.3 mg/dL (1.6-2.4)
[2023-02-17] MEDS: INSULIN REGULAR (HUMAN) 100 UNIT/ML SQ SCH ×4 (07:59→20:45)
[2023-02-17] MEDS: SODIUM BICARB 325 MG TAB PO SCH (07:59)
[2023-02-17] MEDS: MAGNESIUM OXIDE 400 MG TAB PO SCH (07:59)
[2023-02-17] MEDS: LACTULOSE 20 GM/30 ML UCUP PO SCH ×3 (07:59→20:45)
[2023-02-17] MEDS ORDERED: POTASS/SODIUM PHOSPHATE 1 PKT POWD.PACK PO ONE (10:00)
--- NOTE | 2023-02-17 10:06 | P.CNS ---
Date of Consult: 02/17/23 Reason for Consult: Pneumonia Chief Complaint: Altered mental status difficulty swallowing History of Present Illness: Patient is 72 years of age poor historian admitted with altered mental status he was found underneath his bed covered in urine and feces patient was brought to the emergency room he had stopped drinking and smoking about a year ago patient is hard time swallowing he is currently weak apparently he is fell out of his bed yesterday failed the swallow test Patient has pneumonia bilateral right greater than the left Allergies No Known Allergies Allergy (Unverified 06/02/15 11:10) Home Medications: Gabapentin [Gralise] 300 mg PO PRN 12/06/16 Linaclotide [Linzess] 72 mcg PO PRN 12/06/16 Magnesium Oxide [Mag 0X*] 400 mg PO DAILY 12/06/16 Metformin HCl 500 mg PO BID 12/06/16 - Past Medical/Surgical History Diabetic: Yes -: Type 2 diabetes -: tobacco abuse -: cataract surgery - Family History Father Family History: Reviewed- Non-Contributory - Social History Smoking Status: Current every day smoker Alcohol use: No CD- Drugs: No Caffeine use: Yes Place of Residence: Home Review of Systems General: Weakness, Other (Weight loss) Respiratory: Cough, Shortness of Breath Physical Examination Temp Pulse Resp BP Pulse Ox 98.2 F 75 18 112/56 L 95 02/17/23 04:00 02/17/23 04:00 02/17/23 08:07 02/17/23 04:00 02/17/23 08:07 General: Alert, Oriented x3, Cooperative Respiratory: Crackles/rales (Crackles on the right side) Cardiovascular: No edema, Regular rate/rhythm, Normal S1 S2 - Problems (1) Bilateral pneumonia Current Visit: Yes Status: Acute Plan: Patient is a 72 years of age admitted with altered mental status he has extensive pneumonia right greater than the left white count is increasing patient is on Zosyn and doxycycline patient is renal function is worse most likely prerenal patient is on IV fluids 75 cc an hour DC steroids add IV thiamine patient appears to have an enlarged prostate saturation low on room air is only 90% Qualifiers: Pneumonia type: due to unspecified organism Lung location: unspecified part of lung Qualified Code(s): J18.9 - Pneumonia, unspecified organism
[2023-02-17] MEDS: NACHLORIDE 0.45% 1,000 ML IV SCH (11:08)
[2023-02-17] MEDS: THIAMINE 200 MG/2 ML INJ IVP SCH ×2 (11:09→20:45)
[2023-02-17] MEDS: DOXYCYCLINE 100 MG in NA CHLORIDE 0.9% 100 ML IVPB SCH ×2 (11:09→20:44)
--- NOTE | 2023-02-17 12:07 | P.CNS ---
Date of Consult: 02/17/23 Reason for Consult: JOHAN Requesting Physician: Andrea Zuniga Chief Complaint: Altered mental status difficulty swallowing History of Present Illness: Patient is a 72-year-old gentleman who is a poor historian so HPI obtained mostly though records. Patient was apparently found underneath his bed and he was covered in urine and feces when the family arrived to check on him. Patient was brought into the emergency room, where a number of laboratory abnormalities were found and imaging was concerning for PNA. BG have been elevated. Pt denies taking any medications recently. He denies any acute complaints currently such as CP, dyspnea. Allergies No Known Allergies Allergy (Unverified 06/02/15 11:10) Home Medications: RX: Gabapentin [Gralise] 300 mg PO PRN 12/06/16 RX: Linaclotide [Linzess] 72 mcg PO PRN 12/06/16 RX: Magnesium Oxide [Mag 0X*] 400 mg PO DAILY 12/06/16 RX: Metformin HCl 500 mg PO BID 12/06/16 - Past Medical/Surgical History Diabetic: Yes -: Type 2 diabetes -: tobacco abuse -: cataract surgery - Family History Father Family History: Reviewed- Non-Contributory - Social History Smoking Status: Current every day smoker Alcohol use: No CD- Drugs: No Caffeine use: Yes Place of Residence: Home Review of Systems is unable to be obtained Physical Examination Temp Pulse Resp BP Pulse Ox 98.8 F 91 H 16 102/58 L 99 02/17/23 08:00 02/17/23 08:00 02/17/23 08:37 02/17/23 08:00 02/17/23 08:37 General: In no apparent distress, Other (Cachectic) HEENT: Atraumatic, Normocephalic Neck: Supple Respiratory: Normal air movement, Other (No rhonchi appreciated anteriorly) Cardiovascular: No edema, Regular rate/rhythm Gastrointestinal: Soft and benign, Non-distended, No tenderness Musculoskeletal: No swelling, Other (Muscle mass loss) Integumentary: No warmth Neurological: Normal speech, Normal tone Conclusions/Impression: A/P) 1. Stage II JOHAN 2nd to pre-renal state, relative hypotension, other with Cr level downward trending 2. UA not too remarkable other than glucosuria and hyaline casts c/w presentation 3. Renal imaging on CT shows no obstructive uropathy despite some prostomegaly, no parenchymal lesions reported. Will check PVR 4. Although pt reportedly found on the ground, no signs of rhabdo, CPK was not elevated 5. Metab acidosis with some AG, lactic acidosis on admission resolved, bicarb deficit cleared. Stop bicarb based IVF, switch to hypotonic 1/2 NS for mild hypernatremia, lower rate of IVF and will d/c sodium bicarb tabs Ashu Ritter MD, MARK
--- NOTE | 2023-02-17 15:37 | RAD REPORT ---
EXAM DESCRIPTION: CT Head and Cervical Spine Without Intravenous Contrast CLINICAL HISTORY: The patient is 72 years old and is Male; fall and c/o pain TECHNIQUE: Axial computed tomography images of the head/brain and cervical spine without intravenous contrast. Sagittal and coronal reformatted images were created and reviewed. This CT exam was pe rformed using one or more of the following dose reduction techniques: automated exposure control, a djustment of the mA and/or kV according to patient size, and/or use of iterative reconstruction techn ique. COMPARISON: February 14, 2023. FINDINGS: Brain: Mild nonspecific white matter changes likely related to chronic microvascular isc hemic disease. Mild cerebral atrophy. No hemorrhage. Ventricles: Unremarkable. No ventriculomegaly. Skull: No acute fracture. Sinuses: Unremarkable as visualized. No acute sinusitis. Mastoid air cells: Unremarkable as visualized. No mastoid effusion. Vertebrae: See below. Discs/spinal canal/neural foramina: Moderate right and severe left neural foraminal narrowing at C3-4. Posterior disc bulge at C3-4 causing mild to moderate spinal canal narrowing. Moderate right and moderate to severe left neural foraminal narrowing at C5-6. Moderate to severe bilateral neural foraminal narrowing at C6-7. Multilevel disc space narrowing with degenerative endplate changes most prominent at C5-6. Moderate spinal canal narrowing at C5-6. Soft tissues: Unremarkable. Lung apices: Groundglass opacities in the right lung apex. Pleural space: Bilateral pleural effusions. IMPRESSION: 1. No acute intracranial abnormality. 2. No acute fracture or subluxation. Degenerative changes as above. 3. Bilateral pleural effusions. 4. Groundglass opacities in the right lung apex. Electronically signed by: Luis Alberto Norton MD 02/17/2023 06:38 AM WIRE MILL OPERATOR Due to temporary technical issues with the PACS/Fluency reporting system, reports are being signed by the in house radiologists without review as a courtesy to insure prompt reporting. The interpreting radiologist is fully responsible for the content of the report.
--- NOTE | 2023-02-17 16:05 | P.PN ---
Subjective Date of Service: 02/17/23 Chief Complaint: Altered mental status difficulty swallowing Per RN, he had a fall overnight. CT head/cervical spine revealed, "1. No acute intracranial abnormality. 2. No acute fracture or subluxation. Degenerative changes as above. 3. Bilateral pleural effusions. 4. Groundglass opacities in the right lung apex." He denies any concerns this morning. Review of Systems is unable to be obtained (altered mental status) Physical Examination - Vital Signs Temperature: 98.1 F Blood Pressure: 114/65 Pulse: 71 Respirations: 16 Pulse Ox (%): 92 - Physical Exam General: Alert, Oriented x1 (self), Cachectic HEENT: Atraumatic, Mucous membr. moist/pink, EOMI Neck: Supple, JVD not distended Respiratory: Diminished, Rhonchi/gurgles (faint) Cardiovascular: No edema, Regular rate/rhythm, No murmurs Gastrointestinal: Normal bowel sounds, Soft and benign, Non-distended, No tenderness Musculoskeletal: No clubbing Integumentary: No rashes Neurological: Other (unable to obtain due to altered mental status) - Studies Medications List Reviewed: Yes Assessment And Plan - Plan # Severe Sepsis likely secondary to Mutlifocal Pneumonia (Aspiration?) - POA He met SIRS criteria based on HR > 90 bpm, RR > 20 breaths/min, and WBC > 12,000, and the suspected source is pulmonary. Severe sepsis is suspected due to concern for tissue hypoperfusion/organ dysfunction based on lactic acid > 2 mmol/L. - Modified barium swallow requested - Sepsis order set was initiated - Lactate was trend: 2.9 -> 2.2 - Blood cultures drawn - Broad spectrum antibiotics started: Piperacillin-Tazobactam - In regards to fluids: - 30 mL/kg of IV fluids was not administered given SBP > 90, MAP > 65, lactic acid < 4 # Mechanical Ground-Level Fall - CT head/cervical spine = "1. No acute intracranial abnormality. 2. No acute fracture or subluxation. Degenerative changes as above. 3. Bilateral pleural effusions. 4. Groundglass opacities in the right lung apex." - PT/OT consult # High Aspiration Risk - He did not do well on his modified Barium swallow study - Will need to place NG tube and start tube feeds - Plan to update and discuss with family when available # Acute Kidney Injury - Nephrology consulted (Dr Ritter) - recommendations appreciated - Creatinine = 2.42 -> 2.20 -> 1.94 - Urinalysis = 3+ glucose, 10-20 hyaline casts, 1+ protein - Monitor creatinine and urine output - If worsening, obtain renal ultrasound - Renally dose medications # Hyperglycemia in Type II Diabetes Mellitus - Discontinue home metformin given JOHAN and lactic acidosis - Correction scale insulin # Constipation - Continue linaclotide + as needed lactulose # Cachexia - He appears emaciated and cachectic on exam - Preliminary malignancy evaluation is in process - There is also concern about home safety. Will likely require placement - appreciate CM assistance - Nutrition consulted Andrea Zuniga M.D.
[2023-02-17] MEDS ORDERED: SODIUM PHOSPHATE 10 MM in NA CHLORIDE 0.9% 250 ML IV SCH (17:00)
--- NOTE | 2023-02-17 18:56 | RAD REPORT ---
EXAM DESCRIPTION: RAD - Abdomen 1 View (KUB) - 02/17/2023 5:39 pm CLINICAL HISTORY: ng tube COMPARISON: Head C Spine Mpr Wo Con dated 02/17/2023; Barium Swallow Modified dated 02/16/2023; Thor ax Wo Con dated 02/15/2023 TECHNIQUE: Single AP view of the abdomen. FINDINGS: Enteric tube tip projects over the gastric body. Nonobstructive bowel gas pattern. No air-fluid levels, free air, or pneumatosis. No suspicious calcif ications. No significant bony abnormality. IMPRESSION: No acute process. Satisfactory positioning of the enteric tube.
[2023-02-18] MEDS: PIPER TAZO 3.375 GM in NA CHLORIDE 0.9% 100 ML IV SCH ×2 (00:23→13:00)
[2023-02-18] MEDS: NACHLORIDE 0.45% 1,000 ML IV SCH ×2 (00:23→12:36)
[2023-02-18] MEDS: IPRATROPIUM BROM 0.5MG/2.5ML NEB SCH ×4 (00:52→20:57)
[2023-02-18] MEDS: ALBUTEROL 2.5 MG/3 ML NEB SOL NEB SCH ×4 (00:52→20:57)
[2023-02-18 03:16] LABS: Magnesium 2.1 mg/dL (1.6-2.4); Phosphorus 2.6 mg/dL (2.5-4.9); Potassium 3.5 mEq/L (3.5-5.1)
[2023-02-18 03:20] LABS: Absolute Lymphocytes (CBC) 0.5 K/uL (0.7-4.9); Hematocrit 31.5 % (39.6-49.0); Lymphocytes % 2.3 % (15.3-44.8); MCV 88.5 fL (80-100); MPV 10.6 fL (7.6-11.3); Platelets 183 thou/uL (152-406); RBC Red Blood Cell Count 3.56 M/uL (4.33-5.43)
[2023-02-18] MEDS: INSULIN REGULAR (HUMAN) 100 UNIT/ML SQ SCH ×4 (07:30→21:38)
--- NOTE | 2023-02-18 07:48 | RAD REPORT ---
EXAM DESCRIPTION: Bon Single View02/18/2023 6:37 am CLINICAL HISTORY: Chest pain COMPARISON: February 16, 2023 FINDINGS: Moderate to marked right and [id number] left pulmonary opacities which have worsened Heart is normal size. Nasogastric tube enters stomach. Tip is not included in the field of view IMPRESSION: Moderate to marked right [id number] left pulmonary opacities which have worsened p robably pneumonia
[2023-02-18] MEDS: MAGNESIUM OXIDE 400 MG TAB PO SCH (09:00)
[2023-02-18] MEDS: LACTULOSE 20 GM/30 ML UCUP PO SCH ×2 (09:00→22:09)
--- NOTE | 2023-02-18 10:22 | P.PN ---
Subjective Date of Service: 02/18/23 Chief Complaint: Altered mental status difficulty swallowing pneumonia Change in patient's condition he now has an NG tube still continues to remain agitated fall last night has chest cough congestion Review of Systems is unable to be obtained Physical Examination - Vital Signs Temperature: 98.5 F Blood Pressure: 121/64 Pulse: 70 Respirations: 16 Pulse Ox (%): 90 - Physical Exam General: Alert, Unresponsive Respiratory: Clear to auscultation bilaterally, Expiratory wheezes, Rhonchi/gurgles Cardiovascular: No edema, Normal pulses - Studies Medications List Reviewed: Yes Assessment And Plan - Current Problems (Diagnosis) (1) Bilateral pneumonia Current Visit: Yes Status: Acute Plan: Patient admitted with bilateral pneumonia white count is now stabilized renal function is improving I suspect is prerenal mild hyponatremia O2 saturation is borderline trial low-dose tube feeds possible chest x-ray no change bilateral pneumonia Qualifiers: Pneumonia type: due to unspecified organism Lung location: unspecified part of lung Qualified Code(s): J18.9 - Pneumonia, unspecified organism
[2023-02-18] MEDS: DOXYCYCLINE 100 MG in NA CHLORIDE 0.9% 100 ML IVPB SCH ×2 (11:07→20:22)
[2023-02-18] MEDS: THIAMINE 200 MG/2 ML INJ IVP SCH ×2 (11:08→20:25)
--- NOTE | 2023-02-18 18:10 | P.PN ---
Subjective Date of Service: 02/18/23 Chief Complaint: Altered mental status difficulty swallowing pneumonia Per RN, he had coughing episodes while receiving tube feeds. Tube feeds were held. Repeat chest x-ray concerning for pneumonia. Will be placed on aspiration precautions. Review of Systems is unable to be obtained (altered mentation) Physical Examination - Vital Signs Temperature: 98.5 F Blood Pressure: 127/65 Pulse: 94 Respirations: 16 Pulse Ox (%): 91 - Physical Exam General: Alert, Oriented x1 (self), Cachectic HEENT: Atraumatic, Sclerae nonicteric Neck: JVD not distended Respiratory: Diminished, Rhonchi/gurgles (scattered) Cardiovascular: No edema, Regular rate/rhythm, No murmurs Gastrointestinal: Normal bowel sounds, Soft and benign, Non-distended, No tenderness Musculoskeletal: No clubbing Integumentary: No rashes Neurological: Other (limited due to mental status) - Studies Medications List Reviewed: Yes Assessment And Plan - Plan # Severe Sepsis likely secondary to Mutlifocal Pneumonia (Aspiration?) - POA # High Aspiration Risk He met SIRS criteria based on HR > 90 bpm, RR > 20 breaths/min, and WBC > 12,000, and the suspected source is pulmonary. Severe sepsis is suspected due to concern for tissue hypoperfusion/organ dysfunction based on lactic acid > 2 mmol/L. - Failed modified barium swallow study - NG tube placed, was started on tube feeds - Aspiration precautions - Sepsis order set was initiated - Lactate was trend: 2.9 -> 2.2 - Blood cultures drawn - Broad spectrum antibiotics started: Piperacillin-Tazobactam - In regards to fluids: - 30 mL/kg of IV fluids was not administered given SBP > 90, MAP > 65, lactic acid < 4 # Mechanical Ground-Level Fall - CT head/cervical spine = "1. No acute intracranial abnormality. 2. No acute fracture or subluxation. Degenerative changes as above. 3. Bilateral pleural effusions. 4. Groundglass opacities in the right lung apex." - PT/OT consult # Acute Kidney Injury - Nephrology consulted (Dr Ritter) - recommendations appreciated - Creatinine = 2.42 -> 2.20 -> 1.94 -> 1.54 - Urinalysis = 3+ glucose, 10-20 hyaline casts, 1+ protein - Monitor creatinine and urine output - If worsening, obtain renal ultrasound - Renally dose medications # Hyperglycemia in Type II Diabetes Mellitus - Discontinue home metformin given JOHAN and lactic acidosis - Correction scale insulin # Constipation - Continue linaclotide + as needed lactulose # Cachexia - He appears emaciated and cachectic on exam - Preliminary malignancy evaluation is in process - There is also concern about home safety. Will likely require placement - appreciate CM assistance - Nutrition consulted Andrea Zuniga M.D.
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
[2023-02-19] MEDS: PIPER TAZO 3.375 GM in NA CHLORIDE 0.9% 100 ML IV SCH ×2 (00:48→12:33)
[2023-02-19] MEDS: NACHLORIDE 0.45% 1,000 ML IV SCH (01:02)
[2023-02-19] MEDS: IPRATROPIUM BROM 0.5MG/2.5ML NEB SCH ×4 (01:10→19:41)
[2023-02-19] MEDS: ALBUTEROL 2.5 MG/3 ML NEB SOL NEB SCH ×4 (01:10→19:41)
[2023-02-19 03:39] LABS: Absolute Lymphocytes (CBC) 0.6 K/uL (0.7-4.9); Hematocrit 31.1 % (39.6-49.0); Lymphocytes % 4.4 % (15.3-44.8); MCV 88.3 fL (80-100); MPV 10.3 fL (7.6-11.3); Platelets 161 thou/uL (152-406); RBC Red Blood Cell Count 3.52 M/uL (4.33-5.43)
[2023-02-19 03:58] LABS: Potassium 3.2 mEq/L (3.5-5.1)
[2023-02-19] MEDS: THIAMINE 200 MG/2 ML INJ IVP SCH ×2 (08:02→21:28)
[2023-02-19] MEDS: LACTULOSE 20 GM/30 ML UCUP PO SCH ×2 (08:02→21:28)
[2023-02-19] MEDS: DOXYCYCLINE 100 MG in NA CHLORIDE 0.9% 100 ML IVPB SCH ×2 (08:03→21:27)
[2023-02-19] MEDS: MAGNESIUM OXIDE 400 MG TAB PO SCH (08:03)
[2023-02-19] MEDS: INSULIN REGULAR (HUMAN) 100 UNIT/ML SQ SCH ×4 (09:28→21:00)
[2023-02-19] MEDS: D5W 1,000 ML IV SCH ×2 (09:56→23:20)
--- NOTE | 2023-02-19 10:27 | P.PN ---
Subjective Date of Service: 02/19/23 Chief Complaint: Pneumonia Pt is doing better more alert/c/o cough tolerating tube feeds. No problems swallowing at home change to Dobhoff. Repeat swallow study pt is more alert Review of Systems General: Weakness Respiratory: Cough, Shortness of Breath Physical Examination - Vital Signs Temperature: 98.4 F Blood Pressure: 123/58 Pulse: 63 Respirations: 16 Pulse Ox (%): 98 - Physical Exam General: Alert, Oriented x3 Respiratory: Crackles/rales Cardiovascular: No edema, Regular rate/rhythm - Studies Medications List Reviewed: Yes Assessment And Plan - Current Problems (Diagnosis) (1) Bilateral pneumonia Current Visit: Yes Status: Acute Plan: Doign better .WBC is decliningB/C neg/ hypernatremia.change to D5 W/ changeot Dobhoff. Repeat Swallow study/ More aler today// Hyperglycemia add insulin.Pt was on metformin at home Qualifiers: Pneumonia type: due to unspecified organism Lung location: unspecified part of lung Qualified Code(s): J18.9 - Pneumonia, unspecified organism
[2023-02-19] MEDS: INSULIN GLARGINE 100 UNIT/ML SQ SCH (12:32)
--- NOTE | 2023-02-19 16:02 | P.PN ---
Subjective Date of Service: 02/19/23 Chief Complaint: Pneumonia He is much more alert this morning. He has now developed a wet cough. Concern that pneumonia has worsened. He denies any shortness of breath. Spoke with RN and requested tube feeds be held and repeat chest x-ray obtained. Review of Systems 10-point ROS is otherwise unremarkable Respiratory: Cough, Sputum Physical Examination - Vital Signs Temperature: 98.8 F Blood Pressure: 100/57 Pulse: 88 Respirations: 16 Pulse Ox (%): 98 - Physical Exam General: Alert, In no apparent distress, Oriented x3, Cachectic HEENT: Atraumatic, Mucous membr. moist/pink, Sclerae nonicteric Neck: JVD not distended Respiratory: Diminished, Rhonchi/gurgles (scattered) Cardiovascular: No edema, Regular rate/rhythm, Normal S1 S2, No murmurs Gastrointestinal: Normal bowel sounds, Soft and benign, Non-distended, No tenderness, No rebound, No guarding Musculoskeletal: No clubbing Integumentary: No rashes Neurological: Normal speech, Normal affect - Studies Microbiology Data (last 24 hrs): 02/14/23 12:35 Blood - Blood Aerobic Blood Culture - Final No growth in 5 days. 02/14/23 12:35 Blood - Blood Anaerobic Blood Culture - Final No growth in 5 days. 02/14/23 12:35 Blood - Blood Aerobic Blood Culture - Final No growth in 5 days. 02/14/23 12:35 Blood - Blood Anaerobic Blood Culture - Final No growth in 5 days. Medications List Reviewed: Yes Assessment And Plan - Plan # Severe Sepsis likely secondary to Mutlifocal Pneumonia (Aspiration?) - POA # High Aspiration Risk He met SIRS criteria based on HR > 90 bpm, RR > 20 breaths/min, and WBC > 12,000, and the suspected source is pulmonary. Severe sepsis is suspected due to concern for tissue hypoperfusion/organ dysfunction based on lactic acid > 2 mmol/L. - Failed modified barium swallow study - NG tube placed, was started on tube feeds - Tube feeds held. Repeat chest x-ray due to worsening cough. - Aspiration precautions - Sepsis order set was initiated - Lactate was trend: 2.9 -> 2.2 - Blood cultures drawn - Broad spectrum antibiotics started: Piperacillin-Tazobactam - In regards to fluids: - 30 mL/kg of IV fluids was not administered given SBP > 90, MAP > 65, lactic acid < 4 # Mechanical Ground-Level Fall - CT head/cervical spine = "1. No acute intracranial abnormality. 2. No acute fracture or subluxation. Degenerative changes as above. 3. Bilateral pleural effusions. 4. Groundglass opacities in the right lung apex." - PT/OT consult # Acute Kidney Injury - Nephrology consulted (Dr Ritter) - recommendations appreciated - Creatinine = 2.42 -> 2.20 -> 1.94 -> 1.54 -> 1.46 - Urinalysis = 3+ glucose, 10-20 hyaline casts, 1+ protein - Monitor creatinine and urine output - If worsening, obtain renal ultrasound - Renally dose medications # Hyperglycemia in Type II Diabetes Mellitus - Discontinue home metformin given JOHAN and lactic acidosis - Correction scale insulin # Constipation - Continue linaclotide + as needed lactulose # Cachexia - He appears emaciated and cachectic on exam - Preliminary malignancy evaluation is in process - There is also concern about home safety. Will likely require placement - appreciate CM assistance - Nutrition consulted Andrea Zuniga M.D.
--- NOTE | 2023-02-19 16:56 | RAD REPORT ---
EXAM DESCRIPTION: RAD - Chest Single View - 02/19/2023 4:18 pm CLINICAL HISTORY: rule out aspiration pneumonia Chest pain. COMPARISON: <Comparisons> FINDINGS: Portable technique limits examination quality. Since 02/18/2023 study, there has been mild improvement in right lung aeration. Significant right-ezequiel ed airspace opacities persists likely representing pneumonia. Trace pleural effusions. The heart is n ormal in size. Enteric tube tip is in the stomach. IMPRESSION: Mild improvement in right-sided lung aeration since 02/18/2023 study.
--- NOTE | 2023-02-19 23:24 | P.PN ---
Date of Service: 02/19/23 Vital Signs Temp Pulse Resp BP Pulse Ox 98.5 F 59 18 97/54 L 96 02/19/23 20:00 02/19/23 20:00 02/19/23 20:00 02/19/23 20:00 02/19/23 20:00 Medications Acetaminophen (Acetaminophen 500 Mg Tab) 500 mg PO Q6H PRN PRN Reason: pain/fever Albuterol Sulfate (Albuterol 2.5 Mg/3 Ml Neb Lillian) 2.5 mg NEB [id number] [facility] Last Admin: 02/19/23 19:41 Dose: 2.5 mg Glucagon (Glucagon 1 Mg/Vial) 1 mg IM 1X PRN; Protocol PRN Reason: HYPOGLYCEMIA Home Med (Gabapentin [Gralise]) 300 mg PO DAILY PRN PRN Reason: neuropathy Home Med (Linaclotide [Linzess]) 72 mcg PO PRN [facility] Piperacillin Sod/Tazobactam (Sod 3.375 gm/ Sodium Chloride) 100 mls @ 25 mls/hr IV Q12H [facility]; Protocol Last Admin: 02/19/23 12:33 Dose: 100 mls Dextrose (Dextrose 10% Water Iv Soln.) 125 mls @ 0 mls/hr IV PRN PRN; Protocol PRN Reason: HYPOGLYCEMIA Doxycycline Hyclate 100 mg/ (Sodium Chloride) 100 mls @ 100 mls/hr IVPB Q12HR [facility]; Protocol Last Admin: 02/19/23 21:27 Dose: 100 mls Dextrose/Water (Dextrose In Water (1-Liter)) 1,000 mls @ 75 mls/hr IV .[id number] [facility] Last Admin: 02/19/23 09:56 Dose: 1,000 mls Insulin Glargine (Insulin Glargine 100 Unit/Ml) 15 unit SQ LUNCH [facility] Last Admin: 02/19/23 12:32 Dose: 15 unit Insulin Human Regular (Insulin Regular (Human) 100 Unit/Ml) 0 unit SQ ACHS [facility]; Protocol Last Admin: 02/19/23 21:00 Dose: Not Given Ipratropium [place] (Ipratropium Brom 0.5mg/2.5ml) 0.5 mg NEB [id number] [facility] Last Admin: 02/19/23 19:41 Dose: 0.5 mg Lactulose (Lactulose 20 Gm/30 Ml Ucup) 20 gm PO BID [facility] Last Admin: 02/19/23 21:28 Dose: 20 gm Magnesium Oxide (Magnesium Oxide 400 Mg Tab) 400 mg PO DAILY [facility] Last Admin: 02/19/23 08:03 Dose: 400 mg Ondansetron HCl (Ondansetron 4 Mg/2 Ml Vial) 4 mg IV Q8H PRN PRN Reason: NAUSEA / VOMITING Thiamine HCl (Thiamine 200 Mg/2 Ml Inj) 200 mg IVP BID [facility] Last Admin: 02/19/23 21:28 Dose: 200 mg Microbiology Results 02/14/23 12:35 Blood - Blood Aerobic Blood Culture - Final No growth in 5 days. 02/14/23 12:35 Blood - Blood Anaerobic Blood Culture - Final No growth in 5 days. 02/14/23 12:35 Blood - Blood Aerobic Blood Culture - Final No growth in 5 days. 02/14/23 12:35 Blood - Blood Anaerobic Blood Culture - Final No growth in 5 days. 02/14/23 10:33 Nasopharnyx Influenza Type A Antigen Screen - Final 02/14/23 10:33 Nasopharnyx Influenza Type B Antigen Screen - Final Assessment/ Plan: Nephrology No dyspnea No chest pain Constipation Productive cough No acute events overnight Vitals, medications, blood work and imaging reviewed in the chart. NAD. NCAT. MMM. Neck supple. Normal respiratory effort. RRR. Abd ND. No C/C. LE Edema none. No rash. AAO. Normal speech. Stage I JOHAN CKD IIIa with Proteinuria -No NSAIDs Hypernatremia -Agree with free water Hypokalemia -Replete as ordered Hypophosphatemia -Replete as ordered DM II with CKD -RISS Slow transit constipation -Continue Lactulose Case reviewed with Dr. Zuniga
[2023-02-20] MEDS: ALBUTEROL 2.5 MG/3 ML NEB SOL NEB SCH ×5 (01:00→19:36)
[2023-02-20] MEDS: IPRATROPIUM BROM 0.5MG/2.5ML NEB SCH ×5 (01:00→19:36)
[2023-02-20] MEDS: PIPER TAZO 3.375 GM in NA CHLORIDE 0.9% 100 ML IV SCH ×2 (02:19→12:19)
[2023-02-20 06:21] LABS: Absolute Lymphocytes (CBC) 0.4 K/uL (0.7-4.9); Hematocrit 33.7 % (39.6-49.0); Lymphocytes % 2.9 % (15.3-44.8); MCV 88.9 fL (80-100); MPV 9.1 fL (7.6-11.3); Platelets 144 thou/uL (152-406); RBC Red Blood Cell Count 3.79 M/uL (4.33-5.43)
[2023-02-20 06:37] LABS: Magnesium 1.8 mg/dL (1.6-2.4); Potassium 3.3 mEq/L (3.5-5.1)
[2023-02-20 06:45] LABS: Phosphorus 1.4 mg/dL (2.5-4.9)
[2023-02-20] MEDS: INSULIN REGULAR (HUMAN) 100 UNIT/ML SQ SCH ×4 (07:30→21:00)
[2023-02-20] MEDS: DOXYCYCLINE 100 MG in NA CHLORIDE 0.9% 100 ML IVPB SCH ×2 (08:59→20:19)
[2023-02-20] MEDS: MAGNESIUM OXIDE 400 MG TAB PO SCH (09:00)
[2023-02-20] MEDS: LACTULOSE 20 GM/30 ML UCUP PO SCH ×2 (09:00→20:20)
[2023-02-20] MEDS: THIAMINE 200 MG/2 ML INJ IVP SCH ×2 (09:00→20:20)
[2023-02-20] MEDS ORDERED: POTASSIUM 25 MEQ EFFERV TAB FT ONE ×2 (09:07→11:39)
[2023-02-20 10:42] LABS: Blood Morphology Comment NOT SEEN (NOT SEEN); Platelet Estimate ADEQ; White Blood Cell Scan OK (OK)
--- NOTE | 2023-02-20 11:01 | P.PN ---
Subjective Date of Service: 02/20/23 Chief Complaint: Pneumonia Patient is improving he is feeling better still continues to have a cough tolerating tube feeds Review of Systems General: Weakness Respiratory: Cough Physical Examination - Vital Signs Temperature: 98.2 F Blood Pressure: 113/55 Pulse: 58 Respirations: 18 Pulse Ox (%): 97 - Physical Exam General: Alert, Oriented x3 Respiratory: Crackles/rales Cardiovascular: No edema, Regular rate/rhythm - Studies Microbiology Data (last 24 hrs): 02/14/23 12:35 Blood - Blood Aerobic Blood Culture - Final No growth in 5 days. 02/14/23 12:35 Blood - Blood Anaerobic Blood Culture - Final No growth in 5 days. 02/14/23 12:35 Blood - Blood Aerobic Blood Culture - Final No growth in 5 days. 02/14/23 12:35 Blood - Blood Anaerobic Blood Culture - Final No growth in 5 days. Medications List Reviewed: Yes Assessment And Plan - Current Problems (Diagnosis) (1) Bilateral pneumonia Current Visit: Yes Status: Acute Plan: Patient admitted with bilateral pneumonia is clinically improving white count is mildly elevated continue with IV antibiotics he is getting nasogastric tube feed will plan to do another speech evaluation tomorrow hopefully will be able to eat so far his blood cultures are negative patient is on doxycycline and Zosyn no significant change Mild improvement Qualifiers: Pneumonia type: due to unspecified organism Lung location: unspecified part of lung Qualified Code(s): J18.9 - Pneumonia, unspecified organism
[2023-02-20] MEDS: POTASS/SODIUM PHOSPHATE 1 PKT POWD.PACK FT SCH ×2 (11:28→12:23)
[2023-02-20] MEDS: INSULIN GLARGINE 100 UNIT/ML SQ SCH (12:19)
[2023-02-20] MEDS: D5W 1,000 ML IV SCH (12:40)
--- NOTE | 2023-02-20 13:23 | P.PN ---
Subjective Date of Service: 02/20/23 Chief Complaint: Pneumonia Pt is resting comfortably in bed. He has NG tube in place due to aspiration. Potassiuma md phos are low. Waiting for APS recommendation. No other complaints. Review of Systems Unremarkable General: Unremarkable Eyes: Unremarkable ENT: Unremarkable Respiratory: Unremarkable Cardiovascular: Unremarkable Gastrointestinal: Unremarkable Genitourinary: Unremarkable Musculoskeletal: Unremarkable Integumentary: Unremarkable Neurological: Unremarkable Lymphatics: Unremarkable Physical Examination - Vital Signs Temperature: 98.2 F Blood Pressure: 113/55 Pulse: 58 Respirations: 18 Pulse Ox (%): 97 - Physical Exam General: Alert, In no apparent distress, Oriented x3 HEENT: Atraumatic, Normocephalic, PERRLA, Other (NG tube in place) Neck: Supple, 2+ carotid pulse no bruit Respiratory: Normal air movement, Diminished (Decreased bibasilar breath sound) Cardiovascular: No edema, Normal pulses, Regular rate/rhythm, Normal S1 S2 Capillary refill: <2 Seconds Gastrointestinal: Normal bowel sounds, Soft and benign, Non-distended Musculoskeletal: No clubbing, No swelling Integumentary: No rashes - Studies Microbiology Data (last 24 hrs): 02/14/23 12:35 Blood - Blood Aerobic Blood Culture - Final No growth in 5 days. 02/14/23 12:35 Blood - Blood Anaerobic Blood Culture - Final No growth in 5 days. 02/14/23 12:35 Blood - Blood Aerobic Blood Culture - Final No growth in 5 days. 02/14/23 12:35 Blood - Blood Anaerobic Blood Culture - Final No growth in 5 days. Medications List Reviewed: Yes Assessment And Plan - Plan Severe Sepsis likely secondary to Mutlifocal Pneumonia or possible aspiration pna: Pt met SIRS criteria with lactate of > 2. Will continue iv zosyn. No growth on blood cx. Pt has NG tube in place to avoid aspiration. Mechanical Ground-Level Fall: CT head/cervical spine shows no acute intracranial abnormality, Bilateral pleural effusions and groundglass opacities in the right lung apex. Consulted PT/OT. Will continue fall precaution and follow up vitamin D level. Acute Kidney Injury: Cr is 1.33 <- 1.46 <- 1.54 <- 1.94. Will avoid nephrotoxin and monitor renal function. Nephrology is following. Type II Diabetes Mellitus: Will continue accuchek, SSI and ADA diet. Will hold metformin due to lactic acidosis. Constipation: Continue prn lactulose. Cachexia: Pt is severely malnourished. Consulted Funeral Pre Need Consultant. DVT ppx: SCD Dispo: Waiting for APS eval. Discharge Plan: Home Plan to discharge in: 24 Hours - Code Status/Comfort Care Code Status Assessed: Yes
[2023-02-20] MEDS ORDERED: POTASSIUM CL SA 10 MEQ TAB PO SCH (14:00)
[2023-02-20] MEDS ORDERED: POTASSIUM PHOS 30 MM in NA CHLORIDE 0.9% 500 ML IV ONE (14:00)
--- NOTE | 2023-02-20 19:59 | P.PN ---
Date of Service: 02/20/23 Vital Signs Temp Pulse Resp BP Pulse Ox 99.1 F 62 24 H 119/68 91 02/20/23 16:00 02/20/23 16:00 02/20/23 16:00 02/20/23 16:00 02/20/23 16:00 Medications Acetaminophen (Acetaminophen 500 Mg Tab) 500 mg PO Q6H PRN PRN Reason: pain/fever Albuterol Sulfate (Albuterol 2.5 Mg/3 Ml Neb Lillian) 2.5 mg NEB [id number] [facility] Last Admin: 02/20/23 19:36 Dose: 2.5 mg Glucagon (Glucagon 1 Mg/Vial) 1 mg IM 1X PRN; Protocol PRN Reason: HYPOGLYCEMIA Home Med (Gabapentin [Gralise]) 300 mg PO DAILY PRN PRN Reason: neuropathy Home Med (Linaclotide [Linzess]) 72 mcg PO PRN [facility] Piperacillin Sod/Tazobactam (Sod 3.375 gm/ Sodium Chloride) 100 mls @ 25 mls/hr IV Q12H [facility]; Protocol Last Admin: 02/20/23 12:19 Dose: 100 mls Dextrose (Dextrose 10% Water Iv Soln.) 125 mls @ 0 mls/hr IV PRN PRN; Protocol PRN Reason: HYPOGLYCEMIA Doxycycline Hyclate 100 mg/ (Sodium Chloride) 100 mls @ 100 mls/hr IVPB Q12HR [facility]; Protocol Last Admin: 02/20/23 08:59 Dose: 100 mls Dextrose/Water (Dextrose In Water (1-Liter)) 1,000 mls @ 75 mls/hr IV .[id number] [facility] Last Admin: 02/20/23 12:40 Dose: 1,000 mls Insulin Glargine (Insulin Glargine 100 Unit/Ml) 15 unit SQ LUNCH [facility] Last Admin: 02/20/23 12:19 Dose: 15 unit Insulin Human Regular (Insulin Regular (Human) 100 Unit/Ml) 0 unit SQ ACHS [facility]; Protocol Last Admin: 02/20/23 18:17 Dose: 2 unit Ipratropium [place] (Ipratropium Brom 0.5mg/2.5ml) 0.5 mg NEB [id number] [facility] Last Admin: 02/20/23 19:36 Dose: 0.5 mg Lactulose (Lactulose 20 Gm/30 Ml Ucup) 20 gm PO BID [facility] Last Admin: 02/20/23 09:00 Dose: Not Given Magnesium Oxide (Magnesium Oxide 400 Mg Tab) 400 mg PO DAILY [facility] Last Admin: 02/20/23 09:00 Dose: 400 mg Ondansetron HCl (Ondansetron 4 Mg/2 Ml Vial) 4 mg IV Q8H PRN PRN Reason: NAUSEA / VOMITING Thiamine HCl (Thiamine 200 Mg/2 Ml Inj) 200 mg IVP BID [facility] Last Admin: 02/20/23 09:00 Dose: 200 mg Microbiology Results 02/14/23 12:35 Blood - Blood Aerobic Blood Culture - Final No growth in 5 days. 02/14/23 12:35 Blood - Blood Anaerobic Blood Culture - Final No growth in 5 days. 02/14/23 12:35 Blood - Blood Aerobic Blood Culture - Final No growth in 5 days. 02/14/23 12:35 Blood - Blood Anaerobic Blood Culture - Final No growth in 5 days. 02/14/23 10:33 Nasopharnyx Influenza Type A Antigen Screen - Final 02/14/23 10:33 Nasopharnyx Influenza Type B Antigen Screen - Final Assessment/ Plan: Nephrology No dyspnea No chest pain Constipation Productive cough No acute events overnight Vitals, medications, blood work and imaging reviewed in the chart. NAD. NCAT. MMM. Neck supple. Normal respiratory effort. RRR. Abd ND. No C/C. LE Edema none. No rash. AAO. Normal speech. Stage I JOHAN CKD IIIa with Proteinuria -No NSAIDs Hypernatremia -Agree with free water Hypokalemia -Replete as ordered Hypophosphatemia -Replete as ordered DM II with CKD -RISS Slow transit constipation -Continue Lactulose Hospitalist note reviewed
[2023-02-21] MEDS: PIPER TAZO 3.375 GM in NA CHLORIDE 0.9% 100 ML IV SCH ×2 (00:03→13:06)
[2023-02-21] MEDS: ALBUTEROL 2.5 MG/3 ML NEB SOL NEB SCH ×2 (01:33→08:04)
[2023-02-21] MEDS: IPRATROPIUM BROM 0.5MG/2.5ML NEB SCH ×4 (01:33→19:37)
[2023-02-21] MEDS: D5W 1,000 ML IV SCH ×2 (04:03→16:42)
[2023-02-21] MEDS: INSULIN REGULAR (HUMAN) 100 UNIT/ML SQ SCH ×4 (07:30→21:00)
[2023-02-21 07:39] LABS: Absolute Lymphocytes (CBC) 0.5 K/uL (0.7-4.9); Hematocrit 34.6 % (39.6-49.0); Lymphocytes % 2.8 % (15.3-44.8); MCV 89.1 fL (80-100); MPV 9.9 fL (7.6-11.3); Platelets 141 thou/uL (152-406); RBC Red Blood Cell Count 3.89 M/uL (4.33-5.43)
[2023-02-21 07:53] LABS: Phosphorus 2.9 mg/dL (2.5-4.9); Uric Acid 1.9 mg/dL (3.5-7.2)
[2023-02-21] MEDS: DOXYCYCLINE 100 MG in NA CHLORIDE 0.9% 100 ML IVPB SCH (08:31)
[2023-02-21] MEDS: THIAMINE 200 MG/2 ML INJ IVP SCH ×2 (08:31→21:39)
[2023-02-21] MEDS: LACTULOSE 20 GM/30 ML UCUP PO SCH ×2 (08:32→21:00)
[2023-02-21] MEDS: MAGNESIUM OXIDE 400 MG TAB PO SCH (08:32)
[2023-02-21 09:45] LABS: Blood Morphology Comment NOT SEEN (NOT SEEN); Platelet Estimate DECR; White Blood Cell Scan OK (OK)
--- NOTE | 2023-02-21 11:20 | P.PN ---
Subjective Date of Service: 02/21/23 Chief Complaint: Pneumonia Pt is resting comfortably in bed. He has coarse breath sound. He has NG tube in place due to aspiration. Potassium is corrected. Waiting for APS recommendation. No other complaints. Review of Systems Unremarkable Eyes: Unremarkable ENT: Unremarkable Respiratory: Unremarkable Cardiovascular: Unremarkable Gastrointestinal: Unremarkable Genitourinary: Unremarkable Musculoskeletal: Unremarkable Integumentary: Unremarkable Neurological: Unremarkable Lymphatics: Unremarkable Physical Examination - Vital Signs Temperature: 99.1 F Blood Pressure: 134/60 Pulse: 66 Respirations: 28 Pulse Ox (%): 91 - Physical Exam General: Alert, In no apparent distress, Oriented x3 HEENT: Atraumatic, Normocephalic, PERRLA Neck: Supple, 2+ carotid pulse no bruit Respiratory: Normal air movement, Other (pt has coarse breaths ounds due to aspiration) Cardiovascular: No edema, Normal pulses, Regular rate/rhythm, Normal S1 S2 Capillary refill: <2 Seconds Gastrointestinal: Normal bowel sounds, Soft and benign, Non-distended Musculoskeletal: No clubbing, No swelling Integumentary: No rashes, No breakdown Neurological: Normal gait, Normal speech, Normal strength at 5/5 x4 extr Lymphatics: No axilla or inguinal lymphadenopathy - Studies Medications List Reviewed: Yes Assessment And Plan - Plan Severe Sepsis likely secondary to Mutlifocal Pneumonia or possible aspiration pna: Pt met SIRS criteria with lactate of > 2. Will continue iv zosyn. No growth on blood cx. Pt has NG tube in place to avoid aspiration. Mechanical Ground-Level Fall: CT head/cervical spine shows no acute intracranial abnormality, Bilateral pleural effusions and groundglass opacities in the right lung apex. Consulted PT/OT. Will continue fall precaution and follow up vitamin D level. Acute Kidney Injury: Cr is 1.15<- 1.33 <- 1.46 <- 1.54 <- 1.94. Will avoid nephr otoxin and monitor renal function. Nephrology is following. Type II Diabetes Mellitus: Will continue accuchek, SSI and ADA diet. Will hold metformin due to lactic acidosis. Constipation: Continue prn lactulose. Cachexia: Pt is modertely malnourished. Consulted Cargo Handler. Nutrition: Continue tube feeding at 48 cc/hr. DVT ppx: SCD Dispo: Waiting for APS eval.
--- NOTE | 2023-02-21 12:19 | P.PN ---
Subjective Date of Service: 02/21/23 Chief Complaint: Pneumonia cough is improved patient is feeling better still has a nasogastric tube in his speech evaluation is pending Review of Systems General: Weakness Respiratory: Cough, Shortness of Breath Physical Examination - Vital Signs Temperature: 99.1 F Blood Pressure: 134/60 Pulse: 66 Respirations: 28 Pulse Ox (%): 91 - Physical Exam General: Alert, Oriented x3 Respiratory: Crackles/rales Cardiovascular: No edema, Regular rate/rhythm - Studies Medications List Reviewed: Yes Assessment And Plan - Current Problems (Diagnosis) (1) Bilateral pneumonia Current Visit: Yes Status: Acute Plan: Patient admitted with bilateral pneumonia he clinically improving although white count still remains elevated renal function is improving all cultures are negative to IV vancomycin patient is not responding to doxycycline for MRSA infection also has borderline fever patient is currently on 5 L of nasal cannula oxygen sat 91% Qualifiers: Pneumonia type: due to unspecified organism Lung location: unspecified part of lung Qualified Code(s): J18.9 - Pneumonia, unspecified organism
[2023-02-21] MEDS: VANCOMYCIN 1 GM in NA CHLORIDE 0.9% 250 ML IVPB SCH (13:00)
[2023-02-21] MEDS: INSULIN GLARGINE 100 UNIT/ML SQ SCH (13:07)
--- NOTE | 2023-02-21 19:30 | P.PN ---
Date of Service: 02/21/23 Vital Signs Temp Pulse Resp BP Pulse Ox 99.2 F 105 H 29 H 152/76 H 91 02/21/23 16:00 02/21/23 16:00 02/21/23 16:00 02/21/23 16:00 02/21/23 16:00 Medications Acetaminophen (Acetaminophen 500 Mg Tab) 500 mg PO Q6H PRN PRN Reason: pain/fever Glucagon (Glucagon 1 Mg/Vial) 1 mg IM 1X PRN; Protocol PRN Reason: HYPOGLYCEMIA Home Med (Gabapentin [Gralise]) 300 mg PO DAILY PRN PRN Reason: neuropathy Home Med (Linaclotide [Linzess]) 72 mcg PO PRN [facility] Piperacillin Sod/Tazobactam (Sod 3.375 gm/ Sodium Chloride) 100 mls @ 25 mls/hr IV Q12H [facility]; Protocol Last Admin: 02/21/23 13:06 Dose: 100 mls Dextrose (Dextrose 10% Water Iv Soln.) 125 mls @ 0 mls/hr IV PRN PRN; Protocol PRN Reason: HYPOGLYCEMIA Dextrose/Water (Dextrose In Water (1-Liter)) 1,000 mls @ 75 mls/hr IV .[id number] [facility] Last Admin: 02/21/23 16:42 Dose: 1,000 mls Vancomycin HCl 1 gm/ Sodium (Chloride) 250 mls @ 250 mls/hr IVPB Q24H [facility]; Protocol Last Admin: 02/21/23 13:00 Dose: 250 mls Insulin Glargine (Insulin Glargine 100 Unit/Ml) 15 unit SQ LUNCH [facility] Last Admin: 02/21/23 13:07 Dose: 15 unit Insulin Human Regular (Insulin Regular (Human) 100 Unit/Ml) 0 unit SQ ACHS [facility]; Protocol Last Admin: 02/21/23 16:30 Dose: Not Given Ipratropium [place] (Ipratropium Brom 0.5mg/2.5ml) 0.5 mg NEB [id number] [facility] Last Admin: 02/21/23 14:05 Dose: 0.5 mg Lactulose (Lactulose 20 Gm/30 Ml Ucup) 20 gm PO BID [facility] Last Admin: 02/21/23 08:32 Dose: Not Given Magnesium Oxide (Magnesium Oxide 400 Mg Tab) 400 mg PO DAILY [facility] Last Admin: 02/21/23 08:32 Dose: 400 mg Ondansetron HCl (Ondansetron 4 Mg/2 Ml Vial) 4 mg IV Q8H PRN PRN Reason: NAUSEA / VOMITING Thiamine HCl (Thiamine 200 Mg/2 Ml Inj) 200 mg IVP BID [facility] Last Admin: 02/21/23 08:31 Dose: 200 mg Microbiology Results 02/14/23 12:35 Blood - Blood Aerobic Blood Culture - Final No growth in 5 days. 02/14/23 12:35 Blood - Blood Anaerobic Blood Culture - Final No growth in 5 days. 02/14/23 12:35 Blood - Blood Aerobic Blood Culture - Final No growth in 5 days. 02/14/23 12:35 Blood - Blood Anaerobic Blood Culture - Final No growth in 5 days. 02/14/23 10:33 Nasopharnyx Influenza Type A Antigen Screen - Final 02/14/23 10:33 Nasopharnyx Influenza Type B Antigen Screen - Final Assessment/ Plan: Nephrology No dyspnea No chest pain +BM No acute events overnight Vitals, medications, blood work and imaging reviewed in the chart. NAD. NCAT. MMM. Neck supple. Normal respiratory effort. RRR. Abd ND. No C/C. LE Edema none. No rash. AAO. Normal speech. Stage I JOHAN CKD IIIa with Proteinuria -No NSAIDs Hypernatremia -Hold free water at this time Hypokalemia -Replete prn Hypophosphatemia -Replete prn DM II with CKD -RISS Slow transit constipation -Lactulose prn Hospitalist note reviewed
--- NOTE | 2023-02-21 21:27 | RAD REPORT ---
EXAM DESCRIPTION: [facility] CLINICAL HISTORY: SOB COMPARISON: Chest Single View dated 02/19/2023; Chest Single View dated 02/18/2023; Abdomen 1 View ( KUB) dated 02/17/2023; Chest Single View dated 02/14/2023 TECHNIQUE: Portable AP view of the chest. FINDINGS: Patchy progressive central predominant airspace opacities with background interstitial pro minence. Enteric tube in satisfactory position. No pneumothorax or effusion. The cardiomediastinal c ontours are unremarkable. IMPRESSION: Progressive findings suggestive of pulmonary edema, less likely multifocal pneumonia.
[2023-02-22] MEDS: IPRATROPIUM BROM 0.5MG/2.5ML NEB SCH ×4 (01:03→20:11)
[2023-02-22] MEDS: PIPER TAZO 3.375 GM in NA CHLORIDE 0.9% 100 ML IV SCH ×2 (01:20→11:52)
[2023-02-22 03:35] LABS: Potassium 3.9 mEq/L (3.5-5.1)
[2023-02-22] MEDS: METOPROLOL TAR 25 MG TAB PO SCH ×2 (06:23→17:44)
[2023-02-22] MEDS: INSULIN REGULAR (HUMAN) 100 UNIT/ML SQ SCH ×4 (07:30→23:57)
[2023-02-22 08:15] LABS: Absolute Lymphocytes (CBC) 0.5 K/uL (0.7-4.9); Hematocrit 33.2 % (39.6-49.0); Lymphocytes % 2.9 % (15.3-44.8); MCV 88.1 fL (80-100); MPV 10.3 fL (7.6-11.3); Platelets 144 thou/uL (152-406); RBC Red Blood Cell Count 3.77 M/uL (4.33-5.43)
[2023-02-22] MEDS: LACTULOSE 20 GM/30 ML UCUP PO SCH ×2 (09:00→20:12)
[2023-02-22] MEDS: MAGNESIUM OXIDE 400 MG TAB PO SCH (09:00)
[2023-02-22] MEDS: THIAMINE 200 MG/2 ML INJ IVP SCH ×2 (09:00→20:12)
[2023-02-22 09:48] LABS: Arterial Blood Carboxyhemoglob 1.1 % (0-1.5); Blood Gas Oxyhemoglobin 87.6 % (94-97); Blood O2 Saturation 89.3 % (92-98.5)
[2023-02-22] MEDS ORDERED: D5 0.45 NS 1,000 ML IV SCH (11:00)
[2023-02-22] MEDS ORDERED: FUROSEMIDE 20 MG/ 2ML VIAL IV ONE (11:01)
--- NOTE | 2023-02-22 11:02 | P.PN ---
Subjective Date of Service: 02/22/23 Chief Complaint: Pneumonia Pt is more somnolent today. He is using BIPAP at bedside but his oxygen saturation dropped to low 80s when nurse found him without the BIPAP mask. Will transfer pt to ICU. He has NG tube in place due to aspiration. Potassium is corrected. APS recommends SNF placement. CXR shows Pulm edema. He has no family member at bedside. No other complaints. Review of Systems Unremarkable General: Other (lethargic) Eyes: Unremarkable ENT: Unremarkable Respiratory: Shortness of Breath Cardiovascular: Unremarkable Gastrointestinal: Unremarkable Genitourinary: Unremarkable Musculoskeletal: Unremarkable Integumentary: Unremarkable Neurological: Unremarkable Lymphatics: Unremarkable Physical Examination - Vital Signs Temperature: 98.2 F Blood Pressure: 139/74 Pulse: 81 Respirations: 21 Pulse Ox (%): 95 - Physical Exam General: Alert, In no apparent distress, Oriented x1 HEENT: Atraumatic, Normocephalic Neck: Supple, 2+ carotid pulse no bruit Respiratory: Clear to auscultation bilaterally, Normal air movement Cardiovascular: No edema, Normal pulses, Regular rate/rhythm Capillary refill: <2 Seconds Gastrointestinal: Normal bowel sounds, Soft and benign, Non-distended Musculoskeletal: No clubbing, No swelling Integumentary: No rashes, No breakdown Neurological: Normal gait, Normal speech, Normal strength at 5/5 x4 extr Lymphatics: No axilla or inguinal lymphadenopathy - Studies Medications List Reviewed: Yes Assessment And Plan - Plan Severe Sepsis likely secondary to Mutlifocal Pneumonia or possible aspiration pna: Pt met SIRS criteria with lactate of > 2. Will continue iv zosyn. No growth on blood cx. Pt has NG tube in place to avoid aspiration. Acute resp failure with hypoxia: Due to aspiration pna. Will continue BIPAP and abx. CXR shows Pulm edema. Will give lasix 20mg iv x1. Will transfer pt to the ICU for close observation. ABG shows 7.44/44/60. Mechanical Ground-Level Fall: CT head/cervical spine shows no acute intracranial abnormality, Bilateral pleural effusions and groundglass opacities in the right lung apex. Consulted PT/OT. Will continue fall precaution and follow up vitamin D level. Acute Kidney Injury: Cr is 1.01<- 1.15<- 1.33 <- 1.46 <- 1.54 <- 1.94. Will avoid nephrotoxin and monitor renal function. Nephrology is following. Type II Diabetes Mellitus: Will continue accuchek, SSI and ADA diet. Will hold metformin due to lactic acidosis. Will continue D5NS fluid for hypoglycemia protocol. Constipation: Continue prn lactulose. Cachexia: Pt is modertely malnourished. Consulted Er Tech. Nutrition: Will hold tube feeding at 48 cc/hr. DVT ppx: SCD Dispo: Waiting for APS eval.
[2023-02-22] MEDS: INSULIN GLARGINE 100 UNIT/ML SQ SCH (11:54)
[2023-02-22] MEDS ORDERED: METHYLPREDNISOLONE 40 MG INJ IV SCH (12:00)
[2023-02-22] MEDS ORDERED: NA CHLORIDE 0.9% 250 ML ONE (12:01)
[2023-02-22] MEDS ORDERED: VANCOMYCIN 1 GM/VIAL ONE (12:01)
[2023-02-22] MEDS: VANCOMYCIN 1 GM in NA CHLORIDE 0.9% 250 ML IVPB SCH (12:02)
--- NOTE | 2023-02-22 12:12 | P.PN ---
Subjective Date of Service: 02/22/23 Chief Complaint: Pneumonia respiratory failure Patient was transferred from the floor to the ICU due to significant desaturation currently he is on high flow cooperative complaining of chest congestion Review of Systems General: Weakness Respiratory: Cough, Shortness of Breath Physical Examination - Vital Signs Temperature: 98.2 F Blood Pressure: 152/80 Pulse: 105 Respirations: 21 Pulse Ox (%): 95 - Physical Exam General: Alert, Oriented x3, Mild distress Respiratory: Crackles/rales Cardiovascular: No edema, Regular rate/rhythm Gastrointestinal: Normal bowel sounds, Non-distended - Studies Medications List Reviewed: Yes Assessment And Plan - Current Problems (Diagnosis) (1) Bilateral pneumonia Current Visit: Yes Status: Acute Plan: Patient is 72 years of age transferred to the ICU with bilateral pneumonia white count is steadily declining cultures are so far negative DC NG tube and changed to Dobbhoff chest x-ray is pending apparently he was aspirating. Patient was started on IV steroids will have to review depending on the x-ray patient appeared to be very hypoxic DC IV fluids for now add some Lasix maintaining negative fluid balance high risk for thromboembolism fully anticoagulate when stable will consider CT pulmonary angiogram Qualifiers: Pneumonia type: due to unspecified organism Lung location: unspecified part of lung Qualified Code(s): J18.9 - Pneumonia, unspecified organism
[2023-02-22] MEDS: FUROSEMIDE 20 MG/ 2ML VIAL IV SCH (12:20)
[2023-02-22] MEDS ORDERED: ENOXAPARIN 60 MG/0.6 ML SQ ONE (12:31)
[2023-02-22] MEDS: ENOXAPARIN 60 MG/0.6 ML SQ SCH ×2 (12:33→20:12)
--- NOTE | 2023-02-22 12:55 | RAD REPORT ---
EXAM DESCRIPTION: RAD - Abdomen 1 View (KUB) - 02/22/2023 12:29 pm CLINICAL HISTORY: ng tube placement Pain COMPARISON: Abdomen 1 View (KUB) dated 02/17/2023 FINDINGS: Enteric tube is coiled in the stomach.
--- NOTE | 2023-02-22 12:56 | RAD REPORT ---
EXAM DESCRIPTION: RAD - Chest Single View - 02/22/2023 12:29 pm CLINICAL HISTORY: aspiration Chest pain. COMPARISON: Chest Single View dated 02/21/2023; Chest Single View dated 02/19/2023; Chest Single View dated 02/18/2023; Abdomen 1 View (KUB) dated 02/17/2023 FINDINGS: Portable technique limits examination quality. Extensive bilateral pulmonary opacities are again noted, particularly on the left, since comparative study The heart is normal in size. Enteric tube is coiled in the stomach. IMPRESSION: Moderate progressive bilateral pulmonary opacities are seen since comparative study.
--- NOTE | 2023-02-22 13:11 | P.PN ---
Date of Service: 02/22/23 Vital Signs Temp Pulse Resp BP Pulse Ox 98.2 F 105 H 21 H 152/80 H 95 02/22/23 12:14 02/22/23 12:14 02/22/23 12:14 02/22/23 12:14 02/22/23 12:14 Medications Acetaminophen (Acetaminophen 500 Mg Tab) 500 mg PO Q6H PRN PRN Reason: pain/fever Albuterol Sulfate (Albuterol 2.5 Mg/3 Ml Neb Lillian) 2.5 mg NEB [id number] [facility] Aspirin (Aspirin Ec 81 Mg Tab) 81 mg PO DAILY NINOSKA Enoxaparin Sodium (Enoxaparin 60 Mg/0.6 Ml) 50 mg SQ Q12HR NINOSKA Last Admin: 02/22/23 12:33 Dose: 50 mg Furosemide (Furosemide 20 Mg/ 2ml Vial) 20 mg IV DAILY [facility] Last Admin: 02/22/23 12:20 Dose: Not Given Glucagon (Glucagon 1 Mg/Vial) 1 mg IM 1X PRN; Protocol PRN Reason: HYPOGLYCEMIA Home Med (Gabapentin [Gralise]) 300 mg PO DAILY PRN PRN Reason: neuropathy Home Med (Linaclotide [Linzess]) 72 mcg PO PRN NINOSKA Piperacillin Sod/Tazobactam (Sod 3.375 gm/ Sodium Chloride) 100 mls @ 25 mls/hr IV Q12H NINOSKA; Protocol Last Admin: 02/22/23 11:52 Dose: 100 mls Dextrose (Dextrose 10% Water Iv Soln.) 125 mls @ 0 mls/hr IV PRN PRN; Protocol PRN Reason: HYPOGLYCEMIA Last Admin: 02/22/23 09:33 Dose: 125 mls Vancomycin HCl 1 gm/ Sodium (Chloride) 250 mls @ 250 mls/hr IVPB Q24H NINOSKA; Protocol Last Admin: 02/22/23 12:02 Dose: 250 mls Insulin Glargine (Insulin Glargine 100 Unit/Ml) 15 unit SQ LUNCH NINOSKA Last Admin: 02/22/23 11:54 Dose: Not Given Insulin Human Regular (Insulin Regular (Human) 100 Unit/Ml) 0 unit SQ Q6HR NINOSKA; Protocol Last Admin: 02/22/23 11:54 Dose: Not Given Ipratropium [place] (Ipratropium Brom 0.5mg/2.5ml) 0.5 mg NEB [id number] NINOSKA Last Admin: 02/22/23 08:15 Dose: 0.5 mg Lactulose (Lactulose 20 Gm/30 Ml Ucup) 20 gm PO BID [facility] Last Admin: 02/22/23 09:00 Dose: Not Given Magnesium Oxide (Magnesium Oxide 400 Mg Tab) 400 mg PO DAILY [facility] Last Admin: 02/22/23 09:00 Dose: Not Given Methylprednisolone Sodium Succinate (Methylprednisolone 40 Mg Inj) 40 mg IV Q8H [facility] Metoprolol Tartrate (Metoprolol Tar 25 Mg Tab) 25 mg PO BID 6AM 6PM [facility] Last Admin: 02/22/23 06:23 Dose: 25 mg Ondansetron HCl (Ondansetron 4 Mg/2 Ml Vial) 4 mg IV Q8H PRN PRN Reason: NAUSEA / VOMITING Thiamine HCl (Thiamine 200 Mg/2 Ml Inj) 200 mg IVP BID [facility] Last Admin: 02/22/23 09:00 Dose: Not Given Microbiology Results 02/14/23 12:35 Blood - Blood Aerobic Blood Culture - Final No growth in 5 days. 02/14/23 12:35 Blood - Blood Anaerobic Blood Culture - Final No growth in 5 days. 02/14/23 12:35 Blood - Blood Aerobic Blood Culture - Final No growth in 5 days. 02/14/23 12:35 Blood - Blood Anaerobic Blood Culture - Final No growth in 5 days. 02/14/23 10:33 Nasopharnyx Influenza Type A Antigen Screen - Final 02/14/23 10:33 Nasopharnyx Influenza Type B Antigen Screen - Final Assessment/ Plan: Nephrology Rapid response this morning that improved with bipap therapy Vitals, medications, blood work and imaging reviewed in the chart. NAD. NCAT. MMM. Neck supple. Normal respiratory effort. RRR. Abd ND. No C/C. LE Edema none. No rash. AAO. Normal speech. EXAM DESCRIPTION: RAD - Chest Single View - 02/22/2023 12:29 pm CLINICAL HISTORY: aspiration Chest pain. COMPARISON: Chest Single View dated 02/21/2023; Chest Single View dated 02/19/2023; Chest Single View dated 02/18/2023; Abdomen 1 View (KUB) dated 02/17/2023 FINDINGS: Portable technique limits examination quality. Extensive bilateral pulmonary opacities are again noted, particularly on the left, since comparative study The heart is normal in size. Enteric tube is coiled in the stomach. IMPRESSION: Moderate progressive bilateral pulmonary opacities are seen since comparative study. LEFT VENTRICULAR WALL MOTION: NORMAL DOPPLER/COLOR FLOW: SEE BELOW COMMENTS: 1. NORMAL LEFT VENTRICULAR EJECTION FRACTION 55-60% WITH NORMAL WALL MOTION 2. GRADE I DIASTOLIC DYSFUNCTION 3. POOR WINDOWS Stage I JOHAN CKD IIIa with Proteinuria -No NSAIDs Hypernatremia -Hold free water at this time Hypokalemia -Replete prn Hypophosphatemia -Replete prn Diastolic CHF, A/C Pulmonary Edema -Agree with furosemide DM II with CKD -RISS Slow transit constipation -Lactulose prn Hospitalist note reviewed
[2023-02-22] MEDS ORDERED: IPRATROPIUM BROM 0.5MG/2.5ML ONE (13:37)
[2023-02-22] MEDS ORDERED: ALBUTEROL 2.5 MG/3 ML NEB SOL ONE (13:37)
[2023-02-22] MEDS: ALBUTEROL 2.5 MG/3 ML NEB SOL NEB SCH ×2 (13:39→20:11)
[2023-02-22] MEDS ORDERED: THIAMINE 200 MG/2 ML INJ ONE (19:39)
[2023-02-22] MEDS: METHYLPREDNISOLONE 40 MG INJ IV SCH (19:50)
[2023-02-23] MEDS: PIPER TAZO 3.375 GM in NA CHLORIDE 0.9% 100 ML IV SCH ×2 (00:22→12:27)
[2023-02-23] MEDS: IPRATROPIUM BROM 0.5MG/2.5ML NEB SCH ×4 (02:05→18:04)
[2023-02-23] MEDS: ALBUTEROL 2.5 MG/3 ML NEB SOL NEB SCH ×4 (02:05→18:04)
[2023-02-23] MEDS: METHYLPREDNISOLONE 40 MG INJ IV SCH ×3 (03:35→19:40)
[2023-02-23 04:37] LABS: Absolute Lymphocytes (CBC) 0.3 K/uL (0.7-4.9); Hematocrit 27.5 % (39.6-49.0); Lymphocytes % 1.9 % (15.3-44.8); MCV 87.4 fL (80-100); MPV 9.8 fL (7.6-11.3); Platelets 184 thou/uL (152-406); RBC Red Blood Cell Count 3.15 M/uL (4.33-5.43)
[2023-02-23 05:01] LABS: Albumin 1.6 g/dL (3.4-5.0); Potassium 3.8 mEq/L (3.5-5.1); Uric Acid 2.7 mg/dL (3.5-7.2)
[2023-02-23 05:15] LABS: Renal Epithelial <5 /HPF (None Seen); Specific Gravity 1.016 (1.005-1.030); Urine Bacteria <20 /HPF (<20); Urine Bilirubin NEGATIVE (Negative); Urine Blood Negative (Negative); Urine Clarity Extremely Turbid (Clear); Urine Color Yellow (Yellow); Urine Glucose NEGATIVE (Negative); Urine Mucus Slight /HPF (None Seen); Urine Protein 1+ (Negative); Urine RBC None Seen /HPF (None Seen); Urine Urobilinogen Normal (Normal)
[2023-02-23 05:22] LABS: UR PROTEIN 80.2 mg/dL (<11.9); Urine Protein/Creatinine Ratio 1.43 ratio (<0.15)
[2023-02-23] MEDS ORDERED: KCL 20 MEQ/100 mL IVPB 100 ML IV ONE (05:28)
[2023-02-23 05:47] LABS: UR MICROALBUMIN 21.2 mg/dL (< 1.9)
[2023-02-23] MEDS: INSULIN REGULAR (HUMAN) 100 UNIT/ML SQ SCH ×4 (06:00→23:47)
[2023-02-23] MEDS: METOPROLOL TAR 25 MG TAB PO SCH (06:00)
[2023-02-23] MEDS ORDERED: KCL 20 MEQ/100 mL IVPB 20 MEQ/100 ML BAG IV SCH (06:00)
[2023-02-23] MEDS ORDERED: ALBUTEROL 2.5 MG/3 ML NEB SOL ONE ×2 (07:21→13:08)
[2023-02-23] MEDS ORDERED: IPRATROPIUM BROM 0.5MG/2.5ML ONE ×2 (07:21→13:08)
[2023-02-23] MEDS ORDERED: ASPIRIN 81 MG CHEWABLE TABLET ONE (08:13)
[2023-02-23] MEDS ORDERED: MAGNESIUM OXIDE 400 MG TAB ONE (08:13)
[2023-02-23] MEDS: LACTULOSE 20 GM/30 ML UCUP PO SCH ×2 (08:35→20:13)
[2023-02-23] MEDS: FUROSEMIDE 20 MG/ 2ML VIAL IV SCH (08:36)
[2023-02-23] MEDS: ASPIRIN EC 81 MG TAB PO SCH (08:38)
[2023-02-23] MEDS: ENOXAPARIN 60 MG/0.6 ML SQ SCH (08:38)
[2023-02-23] MEDS: MAGNESIUM OXIDE 400 MG TAB PO SCH (08:38)
[2023-02-23] MEDS ORDERED: THIAMINE 200 MG/2 ML INJ ONE (09:22)
[2023-02-23] MEDS: THIAMINE 200 MG/2 ML INJ IVP SCH (09:25)
[2023-02-23] MEDS ORDERED: ALBUMIN HUMAN 25% 100 ML IV ONE (09:29)
--- NOTE | 2023-02-23 09:42 | P.PN ---
Subjective Date of Service: 02/23/23 Chief Complaint: Pneumonia respiratory failure Pt was sleeping when I saw him in the ICU. He is using BIPAP. Off NG tube due to aspiration. His BP is hypotensive. will give albumin and keep MAP > 65. Potassium is corrected. APS recommends SNF placement. He has no family member at bedside. No other complaints. Review of Systems is unable to be obtained Physical Examination - Vital Signs Temperature: 97.4 F Blood Pressure: 104/64 Pulse: 77 Respirations: 21 Pulse Ox (%): 99 - Physical Exam General: Alert, In no apparent distress, Oriented x1 HEENT: Atraumatic, Normocephalic, PERRLA Neck: Supple, 2+ carotid pulse no bruit Respiratory: Diminished, Crackles/rales Cardiovascular: No edema, Normal pulses, Normal S1 S2 Capillary refill: <2 Seconds Gastrointestinal: Normal bowel sounds, Soft and benign, Non-distended Musculoskeletal: No clubbing, No swelling Integumentary: No rashes, No breakdown Neurological: Normal strength at 5/5 x4 extr, Sensation intact Lymphatics: No axilla or inguinal lymphadenopathy - Studies Medications List Reviewed: Yes Assessment And Plan - Plan Severe Sepsis likely secondary to Mutlifocal Pneumonia or possible aspiration pna: Pt met SIRS criteria with lactate of > 2. Will continue iv zosyn. No growth on blood cx. Pt has NG tube in place to avoid aspiration. Acute resp failure with hypoxia: Due to aspiration pna. Will continue BIPAP and abx. CXR shows Pulm edema. S/p lasix 20mg iv x1. Will continue close observation in the ICU. ABG shows 7.44/44/60. Pulm is following. Will r/o PE with CT chest when medically stable. Possible PE: Will continue empiric therapeutic lovenox. Will follow up CT chest when medically stable Mechanical Ground-Level Fall: CT head/cervical spine shows no acute intracranial abnormality, Bilateral pleural effusions and groundglass opacities in the right lung apex. Consulted PT/OT. Will continue fall precaution and follow up vitamin D level. Hypotension: Will give iv albumin and monitor BP. Keep MAP > 65. Low threshold for pressor. Acute Kidney Injury: Cr is 1.4 <- 1.01<- 1.15<- 1.33 <- 1.46 <- 1.54 <- 1.94. Will avoid nephrotoxin and monitor renal function. Nephrology is following. Type II Diabetes Mellitus: Will continue accuchek, SSI and ADA diet. Will hold metformin due to lactic acidosis. Will continue D5NS fluid for hypoglycemia protocol. Pseudohypocalcemia: Corrected calcium is within normal range. calcium is 7.6 and Albumin is 1.6 Constipation: Continue prn lactulose. Cachexia: Pt is moderately malnourished. Consulted Vehicle Body Maker. Nutrition: Will resume tube feeding at a slow rate due to aspiration. DVT ppx: lovenox Dispo: Waiting for APS eval.
[2023-02-23] MEDS ORDERED: INSULIN GLARGINE 100 UNIT/ML SQ ONE (11:31)
[2023-02-23] MEDS ORDERED: INSULIN REGULAR (HUMAN) 100 UNIT/ML ONE ×2 (11:31→17:40)
[2023-02-23] MEDS ORDERED: METHYLPREDNISOLONE 40 MG INJ ONE (11:32)
[2023-02-23] MEDS ORDERED: NA CHLORIDE 0.9% 100 ML ONE ×2 (11:32→23:52)
[2023-02-23] MEDS ORDERED: PIPERACIL/TAZO 3.375 GM VIAL IV ONE ×2 (11:33→23:52)
[2023-02-23] MEDS: INSULIN GLARGINE 100 UNIT/ML SQ SCH (11:38)
--- NOTE | 2023-02-23 12:30 | P.PN ---
Date of Service: 02/23/23 Vital Signs Temp Pulse Resp BP Pulse Ox 97.4 F 77 21 H 104/64 99 02/23/23 09:44 02/23/23 09:44 02/23/23 09:44 02/23/23 09:44 02/23/23 09:44 Medications Acetaminophen (Acetaminophen 500 Mg Tab) 500 mg PO Q6H PRN PRN Reason: pain/fever Albuterol Sulfate (Albuterol 2.5 Mg/3 Ml Neb [place]) 2.5 mg NEB [id number] [facility] Last Admin: 02/23/23 07:26 Dose: 2.5 mg Aspirin (Aspirin Ec 81 Mg Tab) 81 mg PO DAILY [facility] Last Admin: 02/23/23 08:38 Dose: 81 mg Enoxaparin Sodium (Enoxaparin 60 Mg/0.6 Ml) 50 mg SQ Q12HR NINOSKA Last Admin: 02/23/23 08:38 Dose: 50 mg Furosemide (Furosemide 20 Mg/ 2ml Vial) 20 mg IV DAILY [facility] Last Admin: 02/23/23 08:36 Dose: Not Given Glucagon (Glucagon 1 Mg/Vial) 1 mg IM 1X PRN; Protocol PRN Reason: HYPOGLYCEMIA Home Med (Gabapentin [Gralise]) 300 mg PO DAILY PRN PRN Reason: neuropathy Home Med (Linaclotide [Linzess]) 72 mcg PO PRN NINOSKA Piperacillin Sod/Tazobactam (Sod 3.375 gm/ Sodium Chloride) 100 mls @ 25 mls/hr IV Q12H NINOSKA; Protocol Last Admin: 02/23/23 00:22 Dose: 100 mls Dextrose (Dextrose 10% Water Iv Soln.) 125 mls @ 0 mls/hr IV PRN PRN; Protocol PRN Reason: HYPOGLYCEMIA Last Admin: 02/22/23 09:33 Dose: 125 mls Vancomycin HCl 1 gm/ Sodium (Chloride) 250 mls @ 250 mls/hr IVPB Q24H NINOSKA; Protocol Insulin Glargine (Insulin Glargine 100 Unit/Ml) 15 unit SQ LUNCH [facility] Last Admin: 02/23/23 11:38 Dose: 15 unit Insulin Human Regular (Insulin Regular (Human) 100 Unit/Ml) 0 unit SQ Q6HR NINOSKA; Protocol Last Admin: 02/23/23 11:38 Dose: 2 unit Ipratropium [place] (Ipratropium Brom 0.5mg/2.5ml) 0.5 mg NEB [id number] [facility] Last Admin: 02/23/23 07:26 Dose: 0.5 mg Lactulose (Lactulose 20 Gm/30 Ml Ucup) 20 gm PO BID [facility] Last Admin: 02/23/23 08:35 Dose: Not Given Magnesium Oxide (Magnesium Oxide 400 Mg Tab) 400 mg PO DAILY [facility] Last Admin: 02/23/23 08:38 Dose: 400 mg Methylprednisolone Sodium Succinate (Methylprednisolone 40 Mg Inj) 40 mg IV Q8H [facility] Last Admin: 02/23/23 11:38 Dose: 40 mg Metoprolol Tartrate (Metoprolol Tar 25 Mg Tab) 25 mg PO BID 6AM 6PM [facility] Last Admin: 02/23/23 06:00 Dose: Not Given Ondansetron HCl (Ondansetron 4 Mg/2 Ml Vial) 4 mg IV Q8H PRN PRN Reason: NAUSEA / VOMITING Thiamine HCl (Thiamine 200 Mg/2 Ml Inj) 200 mg IVP BID [facility] Last Admin: 02/23/23 09:25 Dose: 200 mg Microbiology Results 02/14/23 12:35 Blood - Blood Aerobic Blood Culture - Final No growth in 5 days. 02/14/23 12:35 Blood - Blood Anaerobic Blood Culture - Final No growth in 5 days. 02/14/23 12:35 Blood - Blood Aerobic Blood Culture - Final No growth in 5 days. 02/14/23 12:35 Blood - Blood Anaerobic Blood Culture - Final No growth in 5 days. 02/14/23 10:33 Nasopharnyx Influenza Type A Antigen Screen - Final 02/14/23 10:33 Nasopharnyx Influenza Type B Antigen Screen - Final Assessment/ Plan: Nephrology Transferred to the ICU yesterday Aspiration noted. Currently on bipap Poorly responsive today complicated by hypotension Seen and examined in the ICU. Limited IH/ ROS due to mental status. Vitals, medications, blood work and imaging reviewed in the chart. NAD. NCAT. MMM. Neck supple. Decreased respiratory effort/ diminished. RRR. Abd ND. No C/C. LE Edema none. No rash. Somnolent. No speech. EXAM DESCRIPTION: RAD - Chest Single View - 02/22/2023 12:29 pm CLINICAL HISTORY: aspiration Chest pain. COMPARISON: Chest Single View dated 02/21/2023; Chest Single View dated 02/19/2023; Chest Single View dated 02/18/2023; Abdomen 1 View (KUB) dated 02/17/2023 FINDINGS: Portable technique limits examination quality. Extensive bilateral pulmonary opacities are again noted, particularly on the left, since comparative study The heart is normal in size. Enteric tube is coiled in the stomach. IMPRESSION: Moderate progressive bilateral pulmonary opacities are seen since comparative study. LEFT VENTRICULAR WALL MOTION: NORMAL DOPPLER/COLOR FLOW: SEE BELOW COMMENTS: 1. NORMAL LEFT VENTRICULAR EJECTION FRACTION 55-60% WITH NORMAL WALL MOTION 2. GRADE I DIASTOLIC DYSFUNCTION 3. POOR WINDOWS Stage I JOHAN in the setting of diuresis and hypotension CKD IIIa with Proteinuria -No NSAIDs -Caution with Vanco/ Zosyn combination due to increased risk of JOHAN Hypernatremia -Hold free water at this time Hypokalemia -Replete prn Hypophosphatemia -Replete prn Diastolic CHF, A/C Pulmonary Edema -Agree with furosemide DM II with CKD -RISS Anemia in chronic illness -Monitor H&H Slow transit constipation -Lactulose prn Sepsis/ Septic Shock Aspiration PNA Acute respiratory failure with hypoxia -Continue abx -Agree with IV Albumin -Continue bipap with oxygen supplementation Hospitalist note reviewed Greater than 30min patient care
--- NOTE | 2023-02-23 12:41 | P.PN ---
Subjective Date of Service: 02/23/23 Chief Complaint: Pneumonia respiratory failure Patient's chest x-ray looks worse now has extensive bilateral infiltrates operative from aspiration or progression of his pneumonia currently on BiPAP Review of Systems is unable to be obtained Physical Examination - Vital Signs Temperature: 97.4 F Blood Pressure: 104/64 Pulse: 77 Respirations: 21 Pulse Ox (%): 99 - Physical Exam General: Unresponsive Respiratory: Crackles/rales Cardiovascular: No edema, Regular rate/rhythm, Normal S1 S2 - Studies Medications List Reviewed: Yes Assessment And Plan - Current Problems (Diagnosis) (1) Bilateral pneumonia Current Visit: Yes Status: Acute Plan: Patient is now in ARDS with extensive bilateral infiltrate progression of pneumonia chest x-ray reviewed currently on BiPAP also he was changed to a Dobbhoff tube kidney function is slightly worse white count is slightly lower cultures are so far negative blood pressure is on the lower side prognosis is poor debilitated at baseline continue with tube feeds all of steroids for anothe r 24 hours Qualifiers: Pneumonia type: due to unspecified organism Lung location: unspecified part of lung Qualified Code(s): J18.9 - Pneumonia, unspecified organism
[2023-02-23] MEDS ORDERED: VANCOMYCIN 1 GM/VIAL ONE (12:47)
[2023-02-23] MEDS ORDERED: NA CHLORIDE 0.9% 250 ML ONE (12:47)
[2023-02-23] MEDS ORDERED: VANCOMYCIN 1 GM in NA CHLORIDE 0.9% 250 ML IVPB SCH (13:00)
[2023-02-23] MEDS: ALBUMIN HUMAN 25% 100 ML IV SCH ×2 (13:20→19:49)
[2023-02-23] MEDS ORDERED: ALBUMIN HUMAN 25% 100 ML IV SCH (14:00)
[2023-02-24] MEDS: PIPER TAZO 3.375 GM in NA CHLORIDE 0.9% 100 ML IV SCH (00:20)
[2023-02-24] MEDS: IPRATROPIUM BROM 0.5MG/2.5ML NEB SCH ×4 (01:30→20:20)
[2023-02-24] MEDS: ALBUTEROL 2.5 MG/3 ML NEB SOL NEB SCH ×4 (01:30→20:20)
[2023-02-24] MEDS: METHYLPREDNISOLONE 40 MG INJ IV SCH ×2 (03:38→12:00)
[2023-02-24 04:37] LABS: Absolute Lymphocytes (CBC) 0.3 K/uL (0.7-4.9); Hematocrit 25.4 % (39.6-49.0); Lymphocytes % 1.7 % (15.3-44.8); MCV 87.8 fL (80-100); MPV 9.9 fL (7.6-11.3); Platelets 164 thou/uL (152-406)
[2023-02-24 04:53] LABS: Potassium 3.3 mEq/L (3.5-5.1); Uric Acid 3.3 mg/dL (3.5-7.2)
[2023-02-24 04:54] LABS: Albumin 2.9 g/dL (3.4-5.0); Bilirubin Total 0.4 mg/dL (0.2-1.0); Protein, Total 6.2 g/dL (6.4-8.2)
[2023-02-24] MEDS ORDERED: KCL 20 MEQ/100 mL IVPB 100 ML IV ONE ×2 (05:28→09:12)
[2023-02-24] MEDS: KCL 20 MEQ/100 mL IVPB 20 MEQ/100 ML BAG IV SCH ×2 (05:30→09:17)
[2023-02-24] MEDS ORDERED: NA CHLORIDE 0.9% 100 ML ONE (05:33)
[2023-02-24] MEDS: INSULIN REGULAR (HUMAN) 100 UNIT/ML SQ SCH ×3 (06:00→18:00)
[2023-02-24] MEDS ORDERED: GLUCAGON 1 MG/VIAL IM PRN (07:03)
[2023-02-24] MEDS ORDERED: D50W 25 GM/50 ML SYRINGE IV PRN (07:03)
[2023-02-24] MEDS ORDERED: POTASSIUM PHOS 40 MEQ in NA CHLORIDE 0.9% 500 ML IV ONE (07:08)
--- NOTE | 2023-02-24 08:17 | RAD REPORT ---
EXAM DESCRIPTION: RADChest Single View02/24/2023 4:31 am CLINICAL HISTORY: Pneumonia COMPARISON: Abdomen 1 View (KUB) dated 02/22/2023; Chest Single View dated 02/22/2023; Chest Single View dated 02/21/2023; Chest Single View dated 02/19/2023 TECHNIQUE: Portable AP view of the chest. FINDINGS: Bilateral fluffy opacities and central interstitial prominence. No pneumothorax or effusi on. The cardiomediastinal contours are unremarkable. IMPRESSION: Findings suggestive of pulmonary edema as above.
[2023-02-24] MEDS ORDERED: ENOXAPARIN 40 MG/0.4 ML SQ SCH (09:00)
[2023-02-24] MEDS: ASPIRIN EC 81 MG TAB PO SCH (09:00)
[2023-02-24] MEDS: GLUCERNA 1.2 CAL 1,000 ML BOT FT SCH (09:00)
[2023-02-24] MEDS ORDERED: INSULIN GLARGINE 100 UNIT/ML SQ ONE (09:10)
[2023-02-24] MEDS ORDERED: INSULIN LISPRO 100 UNIT/ML ONE ×2 (09:10→12:38)
[2023-02-24] MEDS ORDERED: ASPIRIN 81 MG CHEWABLE TABLET ONE (09:12)
[2023-02-24] MEDS ORDERED: ENOXAPARIN 40 MG/0.4 ML SQ ONE (09:12)
[2023-02-24] MEDS ORDERED: LACTULOSE 20 GM/30 ML UCUP ONE (09:13)
[2023-02-24] MEDS: LACTULOSE 20 GM/30 ML UCUP PO SCH (09:17)
[2023-02-24] MEDS: INSULIN GLARGINE 100 UNIT/ML SQ SCH (09:18)
[2023-02-24] MEDS: INSULIN LISPRO 100 UNIT/ML SQ SCH ×3 (09:18→17:00)
--- NOTE | 2023-02-24 09:50 | P.PN ---
Subjective Date of Service: 02/24/23 Chief Complaint: Pneumonia respiratory failure Pt was sleeping when I saw him in the ICU. He is using BIPAP. Off NG tube due to aspiration. His BP improved after he received albumin. Will keep MAP > 65. APS recommends SNF placement. He has no family member at bedside. His is his POA. No other complaints. Review of Systems is unable to be obtained Physical Examination - Vital Signs Temperature: 97.4 F Blood Pressure: 114/59 Pulse: 60 Respirations: 24 Pulse Ox (%): 96 - Physical Exam General: Alert, In no apparent distress HEENT: Atraumatic, Normocephalic Neck: Supple, 2+ carotid pulse no bruit Respiratory: Normal air movement, Diminished Cardiovascular: No edema, Normal pulses, Normal S1 S2 Capillary refill: <2 Seconds Gastrointestinal: Normal bowel sounds, Soft and benign Musculoskeletal: No clubbing, No swelling Integumentary: No rashes, No breakdown Neurological: Normal tone, Sensation intact - Studies Medications List Reviewed: Yes Assessment And Plan - Plan Severe Sepsis likely secondary to Mutlifocal Pneumonia or possible aspiration pna: Pt met SIRS criteria with lactate of > 2. Will continue renally dosed iv v andc and zosyn. No growth on blood cx. Pt has NG tube in place to avoid aspiration. Acute resp failure with hypoxia: Due to aspiration pna. Will continue BIPAP and abx. CXR shows Pulm edema. S/p lasix 20mg iv x1. Will continue close observation in the ICU. ABG shows 7.44/44/60. Pulm is following. Will r/o PE with CT chest when medically stable. Will wean BIPAp as tolerated Possible PE: Will continue empiric therapeutic lovenox. Will follow up CT chest when medically stable Mechanical Ground-Level Fall: CT head/cervical spine shows no acute intracranial abnormality, Bilateral pleural effusions and groundglass opacities in the right lung apex. Consulted PT/OT. Will continue fall precaution and follow up vitamin D level. Hypotension: Will give iv albumin and monitor BP. Keep MAP > 65. Low threshold for pressor. Acute Kidney Injury: Cr is 1.8 <- 1.4 <- 1.01<- 1.15<- 1.33 <- 1.46 <- 1.54 <- 1.94. Will avoid nephrotoxin and monitor renal function. Nephrology is following. Type II Diabetes Mellitus: Will continue accuchek, SSI and ADA diet. Will hold metformin due to lactic acidosis. Will continue D5NS fluid for hypoglycemia protocol. Pseudohypocalcemia: Corrected calcium is within normal range. calcium is 7.6 and Albumin is 1.6 Constipation: Continue prn lactulose. Cachexia: Pt is moderately malnourished. Consulted Synthetic Department Supervisor. Nutrition: Will continue tube feeding. DVT ppx: lovenox Dispo: Waiting for APS eval.
[2023-02-24] MEDS ORDERED: FUROSEMIDE 20 MG/ 2ML VIAL ONE (10:24)
[2023-02-24] MEDS: FUROSEMIDE 20 MG/ 2ML VIAL IV SCH ×2 (10:27→21:14)
[2023-02-24] MEDS: ASPIRIN 81 MG CHEWABLE TABLET PO SCH (11:00)
--- NOTE | 2023-02-24 12:25 | P.PN ---
Subjective Date of Service: 02/24/23 Chief Complaint: Pneumonia respiratory failure Patient's condition has not changed as an FiO2 of 30% BiPAP very comfortable tolerating tube feeds chest x-ray diffuse changes Review of Systems is unable to be obtained Physical Examination - Vital Signs Temperature: 97.4 F Blood Pressure: 128/66 Pulse: 71 Respirations: 30 Pulse Ox (%): 100 - Physical Exam General: Alert, Unresponsive Respiratory: Crackles/rales Cardiovascular: No edema, Regular rate/rhythm, Normal S1 S2 Gastrointestinal: Normal bowel sounds, Soft and benign - Studies Medications List Reviewed: Yes Assessment And Plan - Current Problems (Diagnosis) (1) Bilateral pneumonia Current Visit: Yes Status: Acute Plan: Patient admitted with ARDS SPECT secondary to aspiration white count trending up will DC steroids changed to meropenem DC vancomycin all cultures are FiO2 to 30% renal function is worse mild anemia tolerating tube feeds chest x-ray reviewed trial of high flow Qualifiers: Pneumonia type: due to unspecified organism Lung location: unspecified part of lung Qualified Code(s): J18.9 - Pneumonia, unspecified organism
[2023-02-24] MEDS ORDERED: INSULIN REGULAR (HUMAN) 100 UNIT/ML ONE (12:39)
[2023-02-24] MEDS ORDERED: METHYLPREDNISOLONE 40 MG INJ ONE (12:39)
--- NOTE | 2023-02-24 12:54 | P.PN ---
(S) Seen in the ICU, on BIPAP, O2 requirements are not as significant, O2 sats 100% but CXR concerning. WBC has risen. Pt was hypotensive over the prior 48h, BP stable currently. Renal function test has again worsened (O) Vitals reviewed in the EMR General: In no apparent distress, Other (Cachectic, frail) HEENT: Atraumatic, Normocephalic, BIPAP mask present Neck: Supple Respiratory: b/l BS, reduced at bases, scattered rales Cardiovascular: No edema, Regular rate/rhythm Gastrointestinal: Soft and benign, Non-distended, No tenderness Musculoskeletal: No swelling, Other (Muscle mass loss) Integumentary: No warmth Neurological: Awake, tracks movements, responds briefly Conclusions/Impression: A/P) 1. Stage II JOHAN on admission 2nd to pre-renal state, relative hypotension, other with Cr level downward trending initially before trending back up with recurrent JOHAN in the setting of hypotension 2. Renal imaging on CT showe no obstructive uropathy despite some prostomegaly, no parenchymal lesions reported. 3. Acute hypoxic respiratory insufficiency 2nd to possible aspiration PNA or other pneumonitis with rising WBC and worsening of CXR with b/l infiltrates. Possible superimposed cardiogenic pulm edema from fluid balance over admission with initial vol resuscitation, other. Will place on IV lasix 20 mg q12h since BP stable currently. 4. Hypotension, unspecified -resolved, monitor closely Ashu Ritter MD, MARK
--- NOTE | 2023-02-24 13:43 | EKG ---
Test Date: 2023-02-22 Test Time: 12:29:44 Fleet Director: SIGRID MEASUREMENT RESULTS: Intervals: Rate: 96 AR: 120 QRSD: 76 QT: 420 QTc: 530 [place]: P: 38 AR: 120 QRS: 41 T: 145 INTERPRETIVE STATEMENTS: Sinus rhythm with frequent premature ventricular complexes and premature atrial complexes in a pattern of bigeminy Low voltage QRS ST & T wave abnormality, consider lateral ischemia Prolonged QT Abnormal ECG Compared to ECG 12/05/2016 16:37:24 Atrial premature complex(es) now present Ventricular premature complex(es) now present Low QRS voltage now present ST (T wave) deviation now present Possible ischemia now present Prolonged QT interval now present Electronically Signed On 02-24-23 13:39:48 JUNIOR ACCOUNTANT BOOKKEEPER by Branden Dang
[2023-02-24] MEDS ORDERED: ALBUTEROL 2.5 MG/3 ML NEB SOL ONE ×2 (14:04→20:25)
[2023-02-24] MEDS ORDERED: IPRATROPIUM BROM 0.5MG/2.5ML ONE ×2 (14:04→20:25)
[2023-02-24] MEDS ORDERED: Meropenem 1000 MG/VIAL IV ONE (20:36)
[2023-02-24] MEDS ORDERED: NA CHLORIDE 0.9% 200 ML ONE (20:37)
[2023-02-24] MEDS: Meropenem 1,000 MG in NA CHLORIDE 0.9% 100 ML IV SCH (20:43)
[2023-02-25] MEDS: ALBUTEROL 2.5 MG/3 ML NEB SOL NEB SCH ×2 (01:58→07:33)
[2023-02-25] MEDS: IPRATROPIUM BROM 0.5MG/2.5ML NEB SCH ×4 (01:58→20:30)
[2023-02-25 04:37] LABS: Absolute Lymphocytes (CBC) 0.5 K/uL (0.7-4.9); Hematocrit 25.8 % (39.6-49.0); Lymphocytes % 2.3 % (15.3-44.8); MCV 88.1 fL (80-100); MPV 9.9 fL (7.6-11.3); Platelets 187 thou/uL (152-406); RBC Red Blood Cell Count 2.93 M/uL (4.33-5.43)
[2023-02-25 05:00] LABS: Potassium 3.3 mEq/L (3.5-5.1)
[2023-02-25] MEDS ORDERED: KCL 20 MEQ/100 mL IVPB 100 ML IV ONE (05:38)
[2023-02-25] MEDS ORDERED: INSULIN REGULAR (HUMAN) 100 UNIT/ML ONE ×2 (05:38→23:55)
[2023-02-25] MEDS: KCL 20 MEQ/100 mL IVPB 20 MEQ/100 ML BAG IV SCH ×2 (05:45→10:05)
[2023-02-25] MEDS: INSULIN REGULAR (HUMAN) 100 UNIT/ML SQ SCH ×4 (05:45→17:43)
[2023-02-25] MEDS ORDERED: IPRATROPIUM BROM 0.5MG/2.5ML ONE ×2 (07:19→13:05)
[2023-02-25] MEDS ORDERED: ALBUTEROL 2.5 MG/3 ML NEB SOL ONE (07:19)
--- NOTE | 2023-02-25 08:29 | RAD REPORT ---
EXAM DESCRIPTION: RAD - Chest Single View - 02/25/2023 6:33 am CLINICAL HISTORY: Pneumonia Chest pain. COMPARISON: Chest Single View dated 02/24/2023; Abdomen 1 View (KUB) dated 02/22/2023; Chest Single View dated 02/22/2023; Chest Single View dated 02/21/2023 FINDINGS: Portable technique limits examination quality. Extensive bilateral pulmonary opacities are present, unchanged since 02/24/2023 study. The heart is n ormal in size. Enteric tube descends into the upper abdomen. IMPRESSION: Stable chest since yesterday's examination.
[2023-02-25] MEDS: GLUCERNA 1.2 CAL 1,000 ML BOT FT SCH (09:00)
[2023-02-25] MEDS ORDERED: ASPIRIN EC 81 MG TAB PO SCH (09:00)
--- NOTE | 2023-02-25 09:16 | P.PN ---
Subjective Date of Service: 02/25/23 Chief Complaint: Pneumonia respiratory failure Pt was sleeping when I saw him in the ICU. He is using BIPAP. He is tolerating NG tube feeding at this time. His BP improved after he received albumin. Will keep MAP > 65. APS recommends SNF placement. He has no family member at bedside . His nephew is his POA. No other complaints. Review of Systems 10-point ROS is otherwise unremarkable ENT: Unremarkable Physical Examination - Vital Signs Temperature: 97.4 F Blood Pressure: 131/65 Pulse: 81 Respirations: 23 Pulse Ox (%): 100 - Physical Exam General: Alert, In no apparent distress HEENT: Atraumatic, Normocephalic, PERRLA Neck: Supple, 2+ carotid pulse no bruit Respiratory: Normal air movement, Diminished Cardiovascular: No edema, Normal pulses, Regular rate/rhythm, Normal S1 S2 Capillary refill: <2 Seconds Gastrointestinal: Normal bowel sounds, Soft and benign, Non-distended Musculoskeletal: No clubbing, No swelling Integumentary: No rashes, No breakdown Neurological: Normal gait, Normal speech, Normal strength at 5/5 x4 extr Lymphatics: No axilla or inguinal lymphadenopathy - Studies Medications List Reviewed: Yes Assessment And Plan - Plan Severe Sepsis likely secondary to Mutlifocal Pneumonia or possible aspiration pna: Pt met SIRS criteria with lactate of > 2. Will continuemerrem. off renally dosed iv vanc and zosyn. No growth on blood cx. Pt has NG tube in place to avoid aspiration. Acute resp failure with hypoxia: Due to aspiration pna. Will continue BIPAP and abx. CXR shows Pulm edema. S/p lasix 20mg iv x1. Will continue close observation in the ICU. ABG shows 7.44/44/60. Pulm is following. Will r/o PE with CT chest when medically stable. Will wean BIPAP as tolerated Possible PE: Will continue empiric therapeutic lovenox. Will follow up CT chest when medically stable Mechanical Ground-Level Fall: CT head/cervical spine shows no acute intracranial abnormality, Bilateral pleural effusions and groundglass opacities in the right lung apex. Consulted PT/OT. Will continue fall precaution and follow up vitamin D level. Hypotension: Will give iv albumin and monitor BP. Keep MAP > 65. Low threshold for pressor. Acute Kidney Injury: Cr is 1.48 <- 1.8 <- 1.4 <- 1.01<- 1.15<- 1.33 <- 1.46 <- 1.54 <- 1.94. Will avoid nephrotoxin and monitor renal function. Nephrology is following. Type II Diabetes Mellitus: Will continue accuchek, SSI and ADA diet. Will hold metformin due to lactic acidosis. Will continue D5NS fluid for hypoglycemia protocol. Pseudohypocalcemia: Corrected calcium is within normal range. calcium is 8.4 <- 7.6 and Albumin is 2.9 <- 1.6 Constipation: Continue prn lactulose. Cachexia: Pt is moderately malnourished. Consulted Cheese Sprayer. Nutrition: Will continue tube feeding. DVT ppx: lovenox Dispo: Waiting for APS eval.
[2023-02-25] MEDS ORDERED: INSULIN LISPRO 100 UNIT/ML ONE ×2 (09:55→18:00)
[2023-02-25] MEDS ORDERED: INSULIN GLARGINE 100 UNIT/ML SQ ONE (09:56)
[2023-02-25] MEDS ORDERED: Meropenem 1000 MG/VIAL IV ONE ×2 (09:56→19:43)
[2023-02-25] MEDS ORDERED: NA CHLORIDE 0.9% 100 ML ONE (09:56)
[2023-02-25] MEDS: Meropenem 1,000 MG in NA CHLORIDE 0.9% 100 ML IV SCH ×2 (10:03→20:04)
[2023-02-25] MEDS: FUROSEMIDE 20 MG/ 2ML VIAL IV SCH ×2 (10:04→21:43)
[2023-02-25] MEDS: ENOXAPARIN 30 MG/0.3 ML SQ SCH (10:04)
[2023-02-25] MEDS: INSULIN GLARGINE 100 UNIT/ML SQ SCH (10:04)
[2023-02-25] MEDS: LACTULOSE 20 GM/30 ML UCUP PO SCH (10:05)
[2023-02-25] MEDS: ASPIRIN 81 MG CHEWABLE TABLET PO SCH (10:05)
[2023-02-25] MEDS: INSULIN LISPRO 100 UNIT/ML SQ SCH ×3 (10:06→18:03)
[2023-02-25] MEDS ORDERED: ALBUTEROL 2.5 MG/3 ML NEB SOL NEB PRN (10:14)
--- NOTE | 2023-02-25 10:16 | P.PN ---
Subjective Date of Service: 02/25/23 Chief Complaint: Pneumonia respiratory failure Patient is doing better subjectively feeling better alert responsive cooperative on 30% FiO2 Review of Systems is unable to be obtained Respiratory: Shortness of Breath Physical Examination - Vital Signs Temperature: 97.4 F Blood Pressure: 131/65 Pulse: 81 Respirations: 23 Pulse Ox (%): 100 - Physical Exam General: Alert, Cooperative Respiratory: Crackles/rales, Expiratory wheezes Cardiovascular: No edema, Normal pulses, Regular rate/rhythm, Normal S1 S2 - Studies Medications List Reviewed: Yes Assessment And Plan - Current Problems (Diagnosis) (1) Bilateral pneumonia Current Visit: Yes Status: Acute Plan: Patient is doing better has ARDS diffuse changes on chest x-ray white count is declining continue with meropenem mildly hypokalemic and low-dose spironolactone maintaining slight negative fluid balance uses nebulizers on a as needed basis tolerating tube feeds vital signs stable patient is only requiring an FiO2 of 30% trial of high flow nasal cannula tolerating with BiPAP chest x-ray still shows diffuse bilateral changes Qualifiers: Pneumonia type: due to unspecified organism Lung location: unspecified part of lung Qualified Code(s): J18.9 - Pneumonia, unspecified organism
[2023-02-25] MEDS: SPIRONOLACTONE 25 MG TABLET PO SCH (11:23)
[2023-02-25] MEDS ORDERED: NA CHLORIDE 0.9% 200 ML ONE (19:43)
--- NOTE | 2023-02-25 21:43 | P.PN ---
Date of Service: 02/25/23 Vital Signs Temp Pulse Resp BP Pulse Ox 98 F 86 28 H 111/58 L 100 02/25/23 16:00 02/25/23 19:00 02/25/23 19:00 02/25/23 19:00 02/25/23 19:00 Medications Acetaminophen (Acetaminophen 500 Mg Tab) 500 mg PO Q6H PRN PRN Reason: pain/fever Albuterol Sulfate (Albuterol 2.5 Mg/3 Ml Neb Lillian) 2.5 mg NEB [id number] PRN PRN Reason: SHORTNESS OF BREATH Aspirin (Aspirin 81 Mg Chewable Tablet) 81 mg PO DAILY [facility] Last Admin: 02/25/23 10:05 Dose: 81 mg Enoxaparin Sodium (Enoxaparin 30 Mg/0.3 Ml) 30 mg SQ DAILY [facility] Last Admin: 02/25/23 10:04 Dose: 30 mg Enteral Nutritional Formula (Glucerna 1.2 Kb 1,000 Ml Bot) 0 ml FT DAILY [facility] Last Admin: 02/25/23 09:00 Dose: 1,000 ml Furosemide (Furosemide 20 Mg/ 2ml Vial) 20 mg IV Q12H [facility] Last Admin: 02/25/23 10:04 Dose: 20 mg Glucagon (Glucagon 1 Mg/Vial) 1 mg IM 1X PRN; Protocol PRN Reason: HYPOGLYCEMIA Home Med (Gabapentin [Gralise]) 300 mg PO DAILY PRN PRN Reason: neuropathy Home Med (Linaclotide [Linzess]) 72 mcg PO PRN [facility] Dextrose (Dextrose 10% Water Iv Soln.) 125 mls @ 0 mls/hr IV PRN PRN; Protocol PRN Reason: HYPOGLYCEMIA Last Admin: 02/22/23 09:33 Dose: 125 mls Meropenem 1,000 mg/ Sodium (Chloride) 100 mls @ 200 mls/hr IV Q12HR [facility] Last Admin: 02/25/23 20:04 Dose: 100 mls Insulin Glargine (Insulin Glargine 100 Unit/Ml) 12 unit SQ DAILY [facility] Last Admin: 02/25/23 10:04 Dose: 12 unit Insulin Human Lispro (Insulin Lispro 100 Unit/Ml) 4 unit SQ TIDWM [facility] Last Admin: 02/25/23 18:03 Dose: 4 unit Insulin Human Regular (Insulin Regular (Human) 100 Unit/Ml) 0 unit SQ Q6HR [facility]; Protocol Last Admin: 02/25/23 17:43 Dose: Not Given Ipratropium [place] (Ipratropium Brom 0.5mg/2.5ml) 0.5 mg NEB [id number] [facility] Last Admin: 02/25/23 20:30 Dose: 0.5 mg Lactulose (Lactulose 20 Gm/30 Ml Ucup) 20 gm PO DAILY [facility] Last Admin: 02/25/23 10:05 Dose: 20 gm Ondansetron HCl (Ondansetron 4 Mg/2 Ml Vial) 4 mg IV Q8H PRN PRN Reason: NAUSEA / VOMITING Spironolactone (Spironolactone 25 Mg Tablet) 25 mg PO DAILY [facility] Last Admin: 02/25/23 11:23 Dose: 25 mg Microbiology Results 02/14/23 12:35 Blood - Blood Aerobic Blood Culture - Final No growth in 5 days. 02/14/23 12:35 Blood - Blood Anaerobic Blood Culture - Final No growth in 5 days. 02/14/23 12:35 Blood - Blood Aerobic Blood Culture - Final No growth in 5 days. 02/14/23 12:35 Blood - Blood Anaerobic Blood Culture - Final No growth in 5 days. 02/14/23 10:33 Nasopharnyx Influenza Type A Antigen Screen - Final 02/14/23 10:33 Nasopharnyx Influenza Type B Antigen Screen - Final Assessment/ Plan: Nephrology No acute events overnight Limited IH/ ROS due to mental status. Vitals, medications, blood work and imaging reviewed in the chart. NAD. NCAT. MMM. Neck supple. Diminished. RRR. Abd ND. No C/C. LE Edema none. No rash. Awake. Normal speech. EXAM DESCRIPTION: RAD - Chest Single View - 02/22/2023 12:29 pm CLINICAL HISTORY: aspiration Chest pain. COMPARISON: Chest Single View dated 02/21/2023; Chest Single View dated 02/19/2023; Chest Single View dated 02/18/2023; Abdomen 1 View (KUB) dated 02/17/2023 FINDINGS: Portable technique limits examination quality. Extensive bilateral pulmonary opacities are again noted, particularly on the left, since comparative study The heart is normal in size. Enteric tube is coiled in the stomach. IMPRESSION: Moderate progressive bilateral pulmonary opacities are seen since comparative study. LEFT VENTRICULAR WALL MOTION: NORMAL DOPPLER/COLOR FLOW: SEE BELOW COMMENTS: 1. NORMAL LEFT VENTRICULAR EJECTION FRACTION 55-60% WITH NORMAL WALL MOTION 2. GRADE I DIASTOLIC DYSFUNCTION 3. POOR WINDOWS Stage I JOHAN in the setting of diuresis and hypotension CKD IIIa with Proteinuria -No NSAIDs Hypernatremia -Increase free water flushes Hypokalemia -Replete prn Hypophosphatemia -Replete prn Diastolic CHF, A/C Pulmonary Edema -Agree with furosemide DM II with CKD -RISS Anemia in chronic illness -Monitor H&H Slow transit constipation -Lactulose prn Sepsis/ Septic Shock Aspiration PNA Acute respiratory failure with hypoxia -Continue abx -Agree with IV Albumin -Continue bipap with oxygen supplementation Hospitalist note reviewed Greater than 30min patient care
[2023-02-26] MEDS: IPRATROPIUM BROM 0.5MG/2.5ML NEB SCH ×2 (02:30→07:42)
[2023-02-26 05:05] LABS: Absolute Lymphocytes (CBC) 0.6 K/uL (0.7-4.9); Hematocrit 33.4 % (39.6-49.0); Lymphocytes % 4.3 % (15.3-44.8); MCV 89.2 fL (80-100); MPV 10.3 fL (7.6-11.3); Platelets 182 thou/uL (152-406); RBC Red Blood Cell Count 3.74 M/uL (4.33-5.43)
[2023-02-26 05:27] LABS: Potassium 3.5 mEq/L (3.5-5.1); Uric Acid 3.7 mg/dL (3.5-7.2)
[2023-02-26 05:33] LABS: Phosphorus 1.5 mg/dL (2.5-4.9)
[2023-02-26] MEDS: INSULIN REGULAR (HUMAN) 100 UNIT/ML SQ SCH ×4 (06:00→16:54)
[2023-02-26] MEDS ORDERED: POTASSIUM PHOS 40 MEQ in NA CHLORIDE 0.9% 500 ML IV ONE (06:00)
[2023-02-26] MEDS ORDERED: ALBUMIN HUMAN 25% 100 ML IV ONE ×2 (06:50→08:00)
[2023-02-26] MEDS ORDERED: IPRATROPIUM BROM 0.5MG/2.5ML ONE (07:30)
[2023-02-26] MEDS ORDERED: INSULIN LISPRO 100 UNIT/ML ONE ×3 (08:12→17:15)
[2023-02-26] MEDS ORDERED: INSULIN GLARGINE 100 UNIT/ML SQ ONE ×2 (08:13→12:57)
[2023-02-26] MEDS: GLUCERNA 1.2 CAL 1,000 ML BOT FT SCH (09:00)
[2023-02-26] MEDS ORDERED: NA CHLORIDE 0.9% 100 ML ONE ×2 (09:05→20:39)
[2023-02-26] MEDS ORDERED: Meropenem 1000 MG/VIAL IV ONE ×2 (09:05→20:38)
[2023-02-26] MEDS: INSULIN LISPRO 100 UNIT/ML SQ SCH ×3 (09:08→17:17)
[2023-02-26] MEDS: Meropenem 1,000 MG in NA CHLORIDE 0.9% 100 ML IV SCH ×2 (09:09→20:49)
[2023-02-26] MEDS: ENOXAPARIN 30 MG/0.3 ML SQ SCH (09:09)
[2023-02-26] MEDS: SPIRONOLACTONE 25 MG TABLET PO SCH (09:09)
[2023-02-26] MEDS: ASPIRIN 81 MG CHEWABLE TABLET PO SCH (09:09)
[2023-02-26] MEDS: LACTULOSE 20 GM/30 ML UCUP PO SCH (09:09)
--- NOTE | 2023-02-26 09:09 | P.PN ---
Subjective Date of Service: 02/26/23 Chief Complaint: Pneumonia respiratory failure Pt was sleeping when I saw him in the ICU. He is using BIPAP. He is tolerating NG tube feeding at the rate of 48 cc/hr. His BP improved after he received albumin. Will keep MAP > 65. APS recommends SNF placement. He has no family member at bedside. His POA, is his nephew. He recently had a knee surgery; that is why he has not been able to visit the pt in the hospital. No other complaints. Review of Systems is unable to be obtained Physical Examination - Vital Signs Temperature: 96.7 F Blood Pressure: 105/49 Pulse: 96 Respirations: 24 Pulse Ox (%): 98 - Physical Exam General: Alert, In no apparent distress, Oriented x2 HEENT: Atraumatic, Normocephalic Neck: Supple, 2+ carotid pulse no bruit Respiratory: Clear to auscultation bilaterally, Normal air movement Cardiovascular: No edema, Normal pulses, Regular rate/rhythm, Normal S1 S2 Capillary refill: <2 Seconds Gastrointestinal: Normal bowel sounds, Soft and benign, Non-distended Musculoskeletal: No clubbing, No swelling Integumentary: No rashes, No breakdown Neurological: Normal strength at 5/5 x4 extr, Sensation intact Lymphatics: No axilla or inguinal lymphadenopathy - Studies Medications List Reviewed: Yes Assessment And Plan - Plan Severe Sepsis likely secondary to Mutlifocal Pneumonia or possible aspiration pna: Pt met SIRS criteria with lactate of > 2. Will continue merrem ( day 2). Off renally dosed iv vanc and zosyn. No growth on blood cx. Pt has NG tube in place to avoid aspiration. Acute resp failure with hypoxia: Due to aspiration pna. Will continue BIPAP ( Fio2 30%) and abx. CXR shows Pulm edema. S/p lasix 20mg iv x1. Will continue close observation in the ICU. ABG shows 7.49/44/60. Pulm is following. Will r/o PE with CT chest when medically stable. Will wean BIPAP as tolerated Possible PE: Will continue empiric therapeutic lovenox. Will follow up CT chest when medically stable Mechanical Ground-Level Fall: CT head/cervical spine shows no acute intracranial abnormality, Bilateral pleural effusions and groundglass opacities in the right lung apex. Consulted PT/OT. Will continue fall precaution and follow up vitamin D level. Hypotension: Will give iv albumin and monitor BP. Keep MAP > 65. Low threshold for pressor. Acute Kidney Injury: Cr is 1.3<- 1.48 <- 1.8 <- 1.4 <- 1.01<- 1.15<- 1.33 <- 1.46 <- 1.54 <- 1.94. Will avoid nephrotoxin and monitor renal function. Nephrology is following. Type II Diabetes Mellitus: Will continue accuchek, SSI and ADA diet. Will hold metformin due to lactic acidosis. Will continue D5NS fluid for hypoglycemia protocol. Pseudohypocalcemia: resolved. Corrected calcium is within normal range. calcium is 9.4<- 8.4 <- 7.6 and Albumin is 2.9 <- 1.6 Hypophosphotemia: Phos is 1.5. Will replete with Kphos. Hypokalemia: Will replete and monitor. Constipation: Continue prn lactulose. Cachexia: Pt is moderately malnourished. Consulted Board Handler. Nutrition: Will continue tube feeding. DVT ppx: lovenox Dispo: Pending hospital course. APS is ok with SNF placement. His nephew recently had a knee surgery. he has not been able to visit pt in the hospital.
[2023-02-26] MEDS: INSULIN GLARGINE 100 UNIT/ML SQ SCH ×2 (09:10→13:21)
[2023-02-26] MEDS: FUROSEMIDE 20 MG/ 2ML VIAL IV SCH ×2 (09:10→21:11)
--- NOTE | 2023-02-26 09:31 | RAD REPORT ---
[facility] CLINICAL HISTORY: Pneumonia COMPARISON: Chest Single View dated 02/25/2023; Chest Single View dated 02/24/2023; Abdomen 1 View (KUB) dated 02/22/2023; Chest Single View dated 02/22/2023 TECHNIQUE: Portable AP view of the chest. FINDINGS: Mild improvement of central predominant interstitial and hazy opacities particularly on th e right. The appearance has significantly improved compared to older radiographs of 02/22/2023. Enter ic tube in place. No pneumothorax. Stable small right pleural effusion. The cardiomediastinal contour s are unremarkable. IMPRESSION: Improving central predominant interstitial and hazy opacities as above suggestive of pul monary edema.
[2023-02-26] MEDS ORDERED: POTASSIUM PHOS IN 0.9 % NACL 15 MMOL/250 ML BAG IV ONE (10:00)
[2023-02-26] MEDS ORDERED: IPRATROPIUM BROM 0.5MG/2.5ML NEB PRN (11:01)
--- NOTE | 2023-02-26 11:01 | P.PN ---
Subjective Date of Service: 02/26/23 Chief Complaint: Pneumonia respiratory failure Patient's condition is improving he is very alert responsive cooperative tolerating tube feeds Review of Systems is unable to be obtained Physical Examination - Vital Signs Temperature: 96.7 F Blood Pressure: 105/49 Pulse: 96 Respirations: 24 Pulse Ox (%): 98 - Physical Exam General: Alert, In no apparent distress, Cooperative Respiratory: Crackles/rales Cardiovascular: No edema, Normal pulses, Regular rate/rhythm - Studies Medications List Reviewed: Yes Assessment And Plan - Current Problems (Diagnosis) (1) Bilateral pneumonia Current Visit: Yes Status: Acute Plan: Patient is clinically improving plan to titrate his O2 down still requiring BiPAP at night chest x-ray still shows bilateral interstitial changes perhaps some improvement count is declining on meropenem renal function is improving patient's glucose is still elevated increase long-acting insulin to 20 units Qualifiers: Pneumonia type: due to unspecified organism Lung location: unspecified part of lung Qualified Code(s): J18.9 - Pneumonia, unspecified organism
[2023-02-26] MEDS ORDERED: INSULIN REGULAR (HUMAN) 100 UNIT/ML ONE (12:59)
[2023-02-27 04:36] LABS: Absolute Lymphocytes (CBC) 0.5 K/uL (0.7-4.9); Hematocrit 28.3 % (39.6-49.0); Lymphocytes % 3.2 % (15.3-44.8); MCV 89.1 fL (80-100); MPV 9.6 fL (7.6-11.3); Platelets 187 thou/uL (152-406); RBC Red Blood Cell Count 3.18 M/uL (4.33-5.43)
[2023-02-27 04:42] LABS: Potassium 3.4 mEq/L (3.5-5.1)
[2023-02-27 05:11] LABS: Blood Morphology Comment NOT SEEN (NOT SEEN); Platelet Estimate ADEQ
[2023-02-27] MEDS ORDERED: INSULIN REGULAR (HUMAN) 100 UNIT/ML ONE (05:22)
[2023-02-27] MEDS: INSULIN REGULAR (HUMAN) 100 UNIT/ML SQ SCH ×4 (05:23→16:45)
--- NOTE | 2023-02-27 05:27 | P.PN ---
Date of Service: 02/27/23 Subjective: Physical Exam: Vitals: reviewed GEN: Alert, orientedx2, NAD HEENT: Normal conjunctiva, sclera anicteric CV: Regular rate & rhythm, no edema Pulm: Nonlabored respiraitons, clear bilaterally ABD: Soft, nontender, nondistended MSK: No joint tenderness Integumentary: No rashes Neuro: Normal speech, normal affect Problem List: Severe Sepsis likely secondary to Mutlifocal Pneumonia or possible aspiration pna Acute respiratory failure with hypoxia Possible PE Mechanical Ground-Level Fall Hypotension JOHAN DM2 Pseudohypocalcemia, resolved Hypophosphotemia [place] Constipation Cachexia Plan: Severe Sepsis likely secondary to Mutlifocal Pneumonia or possible aspiration pna Acute respiratory failure with hypoxia Possible PE Blood cx (02/22): no growth Continue merrem (02/24-). previously on Vanc / zosyn BiPAP / NC as needed. Will wean as tolerated CXR shows Pulm edema continue IV lasix Pulm is following Will r/o PE with CT chest when medically stable. Mechanical Ground-Level Fall Hypotension Continue PT/OT Fall precautions monitor BP. Keep MAP > 65. Low threshold for pressor. JOHAN Pseudohypocalcemia, resolved Hypophosphotemia [place] Nephrology following avoid nephrotoxins Replete electrolytes PRN and monitor. Continue to monitor renal function DM2 accuchek, SSI and ADA diet. Will hold metformin due to lactic acidosis. Will continue D5NS fluid for hypoglycemia protocol. Constipation Continue prn lactulose. Cachexia NGT in place. Continue tube feeding. Surgical Appliance Fitter consulted cm/ss looking into dispo options / SNF Lovenox DVT prophylaxis
--- NOTE | 2023-02-27 07:26 | RAD REPORT ---
EXAM DESCRIPTION: RAD - Chest Single View - 02/27/2023 4:45 am CLINICAL HISTORY: Pneumonia Chest pain. COMPARISON: Chest Single View dated 02/26/2023; Chest Single View dated 02/25/2023; Chest Single View da jhoan 02/24/2023; Abdomen 1 View (KUB) dated 02/22/2023 FINDINGS: Portable technique limits examination quality. Diffuse emphysema is seen. Bilateral pulmonary opacities have mildly improved since yesterday's radio graph, more notably on the left. The heart is upper limit normal in size. Enteric tube descends in th e stomach. IMPRESSION: Mild improvement lung aeration noted since yesterday's examination.
[2023-02-27] MEDS ORDERED: POTASSIUM 25 MEQ EFFERV TAB PO ONE (07:30)
[2023-02-27] MEDS ORDERED: INSULIN LISPRO 100 UNIT/ML ONE ×2 (08:09→16:40)
[2023-02-27] MEDS ORDERED: INSULIN GLARGINE 100 UNIT/ML SQ ONE (08:10)
[2023-02-27] MEDS ORDERED: NA CHLORIDE 0.9% 100 ML ONE ×2 (08:11→20:51)
[2023-02-27] MEDS ORDERED: Meropenem 1000 MG/VIAL IV ONE ×2 (08:11→20:51)
[2023-02-27] MEDS ORDERED: FUROSEMIDE 20 MG/ 2ML VIAL ONE (08:11)
[2023-02-27] MEDS: INSULIN LISPRO 100 UNIT/ML SQ SCH ×3 (08:17→16:44)
[2023-02-27] MEDS: ASPIRIN 81 MG CHEWABLE TABLET PO SCH (08:18)
[2023-02-27] MEDS: SPIRONOLACTONE 25 MG TABLET PO SCH (08:18)
[2023-02-27] MEDS: GLUCERNA 1.2 CAL 1,000 ML BOT FT SCH (08:18)
[2023-02-27] MEDS: LACTULOSE 20 GM/30 ML UCUP PO SCH (08:18)
[2023-02-27] MEDS: ENOXAPARIN 30 MG/0.3 ML SQ SCH (08:18)
[2023-02-27] MEDS: Meropenem 1,000 MG in NA CHLORIDE 0.9% 100 ML IV SCH ×2 (08:18→20:59)
[2023-02-27] MEDS: INSULIN GLARGINE 100 UNIT/ML SQ SCH (08:19)
[2023-02-27] MEDS ORDERED: KCL 20 MEQ/100 mL IVPB 20 MEQ/100 ML BAG IV SCH (11:00)
[2023-02-27] MEDS ORDERED: D5W 1,000 ML IV SCH (11:00)
[2023-02-27] MEDS ORDERED: GLUCERNA 1.2 CAL 1,000 ML BOT FT SCH (11:28)
--- NOTE | 2023-02-27 11:44 | P.PN ---
Subjective Date of Service: 02/27/23 Chief Complaint: Pneumonia respiratory failure Patient is doing well is now nasal cannula oxygen hyponatremic Review of Systems General: Weakness Respiratory: Shortness of Breath Physical Examination - Vital Signs Temperature: 97.6 F Blood Pressure: 82/54 Pulse: 96 Respirations: 24 Pulse Ox (%): 98 - Physical Exam General: Alert, Oriented x3 Respiratory: Clear to auscultation bilaterally, Diminished Cardiovascular: No edema, Regular rate/rhythm - Studies Medications List Reviewed: Yes Assessment And Plan - Current Problems (Diagnosis) (1) Bilateral pneumonia Current Visit: Yes Status: Acute Plan: Patient is doing much better and now is on nasal cannula oxygen mildly hyponatremic will DC Lasix white count is stable at 16 labs chest x-rays all reviewed stable to be transferred to the floor patient will need a speech therapy evaluation again a little low blood pressure will also give fluid boluses for now Qualifiers: Pneumonia type: due to unspecified organism Lung location: unspecified part of lung Qualified Code(s): J18.9 - Pneumonia, unspecified organism
--- NOTE | 2023-02-27 20:32 | P.PN ---
Date of Service: 02/27/23 Vital Signs Temp Pulse Resp BP Pulse Ox 97.2 F 87 21 H 92/61 99 02/27/23 19:00 02/27/23 19:00 02/27/23 19:00 02/27/23 19:00 02/27/23 19:00 Medications Acetaminophen (Acetaminophen 500 Mg Tab) 500 mg PO Q6H PRN PRN Reason: pain/fever Albuterol Sulfate (Albuterol 2.5 Mg/3 Ml Neb Lillian) 2.5 mg NEB [id number] PRN PRN Reason: SHORTNESS OF BREATH Aspirin (Aspirin 81 Mg Chewable Tablet) 81 mg PO DAILY [facility] Last Admin: 02/27/23 08:18 Dose: 81 mg Enoxaparin Sodium (Enoxaparin 40 Mg/0.4 Ml) 40 mg SQ DAILY [facility] Enteral Nutritional Formula (Glucerna 1.2 Kb 1,000 Ml Bot) 0 ml FT DAILY [facility] Glucagon (Glucagon 1 Mg/Vial) 1 mg IM 1X PRN; Protocol PRN Reason: HYPOGLYCEMIA Home Med (Gabapentin [Gralise]) 300 mg PO DAILY PRN PRN Reason: neuropathy Home Med (Linaclotide [Linzess]) 72 mcg PO PRN [facility] Dextrose (Dextrose 10% Water Iv Soln.) 125 mls @ 0 mls/hr IV PRN PRN; Protocol PRN Reason: HYPOGLYCEMIA Last Admin: 02/22/23 09:33 Dose: 125 mls Meropenem 1,000 mg/ Sodium (Chloride) 100 mls @ 200 mls/hr IV Q12HR [facility] Last Admin: 02/27/23 08:18 Dose: 100 mls Insulin Glargine (Insulin Glargine 100 Unit/Ml) 20 unit SQ DAILY [facility] Last Admin: 02/27/23 08:19 Dose: 20 unit Insulin Human Lispro (Insulin Lispro 100 Unit/Ml) 4 unit SQ TIDWM [facility] Last Admin: 02/27/23 16:44 Dose: 4 unit Insulin Human Regular (Insulin Regular (Human) 100 Unit/Ml) 0 unit SQ Q6HR [facility]; Protocol Last Admin: 02/27/23 16:45 Dose: Not Given Ipratropium [place] (Ipratropium Brom 0.5mg/2.5ml) 0.5 mg NEB [id number] PRN PRN Reason: SHORTNESS OF BREATH Lactulose (Lactulose 20 Gm/30 Ml Ucup) 20 gm PO DAILY [facility] Last Admin: 02/27/23 08:18 Dose: 20 gm Ondansetron HCl (Ondansetron 4 Mg/2 Ml Vial) 4 mg IV Q8H PRN PRN Reason: NAUSEA / VOMITING Spironolactone (Spironolactone 25 Mg Tablet) 25 mg PO DAILY [facility] Last Admin: 02/27/23 08:18 Dose: 25 mg Microbiology Results 02/14/23 12:35 Blood - Blood Aerobic Blood Culture - Final No growth in 5 days. 02/14/23 12:35 Blood - Blood Anaerobic Blood Culture - Final No growth in 5 days. 02/14/23 12:35 Blood - Blood Aerobic Blood Culture - Final No growth in 5 days. 02/14/23 12:35 Blood - Blood Anaerobic Blood Culture - Final No growth in 5 days. 02/14/23 10:33 Nasopharnyx Influenza Type A Antigen Screen - Final 02/14/23 10:33 Nasopharnyx Influenza Type B Antigen Screen - Final Assessment/ Plan: Nephrology No acute events overnight Limited IH/ ROS due to mental status. Vitals, medications, blood work and imaging reviewed in the chart. NAD. NCAT. MMM. Neck supple. Diminished. RRR. Abd ND. No C/C. LE Edema none. No rash. Awake. Normal speech. EXAM DESCRIPTION: RAD - Chest Single View - 02/22/2023 12:29 pm CLINICAL HISTORY: aspiration Chest pain. COMPARISON: Chest Single View dated 02/21/2023; Chest Single View dated 02/19/2023; Chest Single View dated 02/18/2023; Abdomen 1 View (KUB) dated 02/17/2023 FINDINGS: Portable technique limits examination quality. Extensive bilateral pulmonary opacities are again noted, particularly on the left, since comparative study The heart is normal in size. Enteric tube is coiled in the stomach. IMPRESSION: Moderate progressive bilateral pulmonary opacities are seen since comparative study. LEFT VENTRICULAR WALL MOTION: NORMAL DOPPLER/COLOR FLOW: SEE BELOW COMMENTS: 1. NORMAL LEFT VENTRICULAR EJECTION FRACTION 55-60% WITH NORMAL WALL MOTION 2. GRADE I DIASTOLIC DYSFUNCTION 3. POOR WINDOWS Stage I JOHAN in the setting of diuresis and hypotension CKD IIIa with Proteinuria -No NSAIDs Hypernatremia -Increase free water flushes Hypokalemia -Replete as ordered Hypophosphatemia -Replete prn Diastolic CHF, A/C Pulmonary Edema -Hold furosemide DM II with CKD -RISS Anemia in chronic illness -Monitor H&H Slow transit constipation -Lactulose prn Sepsis/ Septic Shock Aspiration PNA Acute respiratory failure with hypoxia -Continue abx -Continue Oxygen supplementation -Bipap prn Hospitalist & Pulmonary notes reviewed Greater than 30min patient care
[2023-02-28] MEDS ORDERED: INSULIN REGULAR (HUMAN) 100 UNIT/ML ONE (06:16)
[2023-02-28] MEDS: INSULIN REGULAR (HUMAN) 100 UNIT/ML SQ SCH ×4 (06:17→16:25)
[2023-02-28] MEDS ORDERED: INSULIN LISPRO 100 UNIT/ML ONE ×2 (08:13→16:26)
[2023-02-28 08:35] LABS: Absolute Lymphocytes (CBC) 0.6 K/uL (0.7-4.9); Hematocrit 31.2 % (39.6-49.0); Lymphocytes % 4.1 % (15.3-44.8); MCV 89.5 fL (80-100); MPV 10.9 fL (7.6-11.3); Platelets 179 thou/uL (152-406); RBC Red Blood Cell Count 3.48 M/uL (4.33-5.43)
[2023-02-28] MEDS ORDERED: Meropenem 1000 MG/VIAL IV ONE ×2 (08:40→21:23)
[2023-02-28] MEDS ORDERED: NA CHLORIDE 0.9% 100 ML ONE ×2 (08:40→21:24)
[2023-02-28 08:46] LABS: Potassium 4.1 mEq/L (3.5-5.1)
[2023-02-28] MEDS: ENOXAPARIN 40 MG/0.4 ML SQ SCH (08:46)
[2023-02-28] MEDS: INSULIN LISPRO 100 UNIT/ML SQ SCH ×3 (09:04→16:35)
[2023-02-28] MEDS: Meropenem 1,000 MG in NA CHLORIDE 0.9% 100 ML IV SCH ×2 (09:04→21:42)
[2023-02-28] MEDS: INSULIN GLARGINE 100 UNIT/ML SQ SCH (09:05)
[2023-02-28] MEDS: ASPIRIN 81 MG CHEWABLE TABLET PO SCH (09:05)
[2023-02-28] MEDS: LACTULOSE 20 GM/30 ML UCUP PO SCH (09:05)
--- NOTE | 2023-02-28 11:35 | P.PN ---
Subjective Date of Service: 02/28/23 Chief Complaint: Pneumonia respiratory failure Patient is improving no new change hemodynamically stable alert cooperative awaiting transfer to the floor still hypernatremic Review of Systems General: Weakness Respiratory: Shortness of Breath Physical Examination - Vital Signs Temperature: 97.3 F Blood Pressure: 111/56 Pulse: 88 Respirations: 25 Pulse Ox (%): 100 - Physical Exam General: Alert, In no apparent distress, Oriented x3 Respiratory: Clear to auscultation bilaterally, Diminished Cardiovascular: No edema, Regular rate/rhythm, Normal S1 S2 - Studies Medications List Reviewed: Yes Assessment And Plan - Current Problems (Diagnosis) (1) Bilateral pneumonia Current Visit: Yes Status: Acute Plan: Patient is improving doing much better white count is declining on nasal cannula oxygen 2 L 100% sat Qualifiers: Pneumonia type: due to unspecified organism Lung location: unspecified part of lung Qualified Code(s): J18.9 - Pneumonia, unspecified organism (2) Hypernatremia Current Visit: Yes Status: Acute Plan: Will DC Lasix and spironolactone water flushes renal function is slightly worse
[2023-02-28] MEDS ORDERED: GLUCERNA 1.2 CAL 1,000 ML BOT RTH SCH (17:00)
--- NOTE | 2023-02-28 20:18 | P.PN ---
Date of Service: 02/28/23 Vital Signs Temp Pulse Resp BP Pulse Ox 98.7 F 106 H 27 H 101/52 L 97 02/28/23 16:00 02/28/23 18:00 02/28/23 18:00 02/28/23 18:00 02/28/23 18:00 Medications Acetaminophen (Acetaminophen 500 Mg Tab) 500 mg PO Q6H PRN PRN Reason: pain/fever Albuterol Sulfate (Albuterol 2.5 Mg/3 Ml Neb Lillian) 2.5 mg NEB [id number] PRN PRN Reason: SHORTNESS OF BREATH Aspirin (Aspirin 81 Mg Chewable Tablet) 81 mg PO DAILY [facility] Last Admin: 02/28/23 09:05 Dose: 81 mg Enoxaparin Sodium (Enoxaparin 40 Mg/0.4 Ml) 40 mg SQ DAILY [facility] Last Admin: 02/28/23 08:46 Dose: 40 mg Enteral Nutritional Formula (Glucerna 1.2 Kb 1,000 Ml Bot) 1,000 ml RTH CONT [facility] Glucagon (Glucagon 1 Mg/Vial) 1 mg IM 1X PRN; Protocol PRN Reason: HYPOGLYCEMIA Home Med (Gabapentin [Gralise]) 300 mg PO DAILY PRN PRN Reason: neuropathy Home Med (Linaclotide [Linzess]) 72 mcg PO PRN [facility] Dextrose (Dextrose 10% Water Iv Soln.) 125 mls @ 0 mls/hr IV PRN PRN; Protocol PRN Reason: HYPOGLYCEMIA Last Admin: 02/22/23 09:33 Dose: 125 mls Meropenem 1,000 mg/ Sodium (Chloride) 100 mls @ 200 mls/hr IV Q12HR [facility] Last Admin: 02/28/23 09:04 Dose: 100 mls Insulin Glargine (Insulin Glargine 100 Unit/Ml) 30 unit SQ DAILY [facility] Insulin Human Lispro (Insulin Lispro 100 Unit/Ml) 4 unit SQ TIDWM [facility] Last Admin: 02/28/23 16:35 Dose: 4 unit Insulin Human Regular (Insulin Regular (Human) 100 Unit/Ml) 0 unit SQ Q6HR [facility]; Protocol Last Admin: 02/28/23 16:25 Dose: Not Given Ipratropium [place] (Ipratropium Brom 0.5mg/2.5ml) 0.5 mg NEB [id number] PRN PRN Reason: SHORTNESS OF BREATH Lactulose (Lactulose 20 Gm/30 Ml Ucup) 20 gm PO DAILY [facility] Last Admin: 02/28/23 09:05 Dose: 20 gm Ondansetron HCl (Ondansetron 4 Mg/2 Ml Vial) 4 mg IV Q8H PRN PRN Reason: NAUSEA / VOMITING Microbiology Results 02/14/23 12:35 Blood - Blood Aerobic Blood Culture - Final No growth in 5 days. 02/14/23 12:35 Blood - Blood Anaerobic Blood Culture - Final No growth in 5 days. 02/14/23 12:35 Blood - Blood Aerobic Blood Culture - Final No growth in 5 days. 02/14/23 12:35 Blood - Blood Anaerobic Blood Culture - Final No growth in 5 days. 02/14/23 10:33 Nasopharnyx Influenza Type A Antigen Screen - Final 02/14/23 10:33 Nasopharnyx Influenza Type B Antigen Screen - Final Assessment/ Plan: Nephrology No acute events overnight Limited IH/ ROS due to mental status. Vitals, medications, blood work and imaging reviewed in the chart. NAD. NCAT. MMM. Neck supple. Diminished. RRR. Abd ND. No C/C. LE Edema none. No rash. Awake. Normal speech. EXAM DESCRIPTION: RAD - Chest Single View - 02/22/2023 12:29 pm CLINICAL HISTORY: aspiration Chest pain. COMPARISON: Chest Single View dated 02/21/2023; Chest Single View dated 02/19/2023; Chest Single View dated 02/18/2023; Abdomen 1 View (KUB) dated 02/17/2023 FINDINGS: Portable technique limits examination quality. Extensive bilateral pulmonary opacities are again noted, particularly on the left, since comparative study The heart is normal in size. Enteric tube is coiled in the stomach. IMPRESSION: Moderate progressive bilateral pulmonary opacities are seen since comparative study. LEFT VENTRICULAR WALL MOTION: NORMAL DOPPLER/COLOR FLOW: SEE BELOW COMMENTS: 1. NORMAL LEFT VENTRICULAR EJECTION FRACTION 55-60% WITH NORMAL WALL MOTION 2. GRADE I DIASTOLIC DYSFUNCTION 3. POOR WINDOWS Stage I JOHAN in the setting of diuresis and hypotension CKD IIIa with Proteinuria -No NSAIDs Hypernatremia -Continue free water flushes -D5W IVF bolus X1 Hypokalemia -Replete prn Hypophosphatemia -Replete prn Diastolic CHF, A/C Pulmonary Edema -Hold furosemide -Daily weight DM II with CKD -RISS Anemia in chronic illness -Monitor H&H Slow transit constipation -Lactulose prn Sepsis/ Septic Shock Aspiration PNA Acute respiratory failure with hypoxia -Continue abx -Continue Oxygen supplementation -Bipap prn Hospitalist & Pulmonary notes reviewed Greater than 30min patient care
[2023-02-28] MEDS ORDERED: D5W 1,000 ML IV SCH (20:30)
[2023-03-01] MEDS: INSULIN REGULAR (HUMAN) 100 UNIT/ML SQ SCH ×4 (00:41→18:00)
[2023-03-01 07:19] LABS: Absolute Lymphocytes (CBC) 0.6 K/uL (0.7-4.9); Hematocrit 27.1 % (39.6-49.0); Lymphocytes % 4.4 % (15.3-44.8); MCV 89.2 fL (80-100); MPV 10.2 fL (7.6-11.3); Platelets 187 thou/uL (152-406); RBC Red Blood Cell Count 3.04 M/uL (4.33-5.43)
[2023-03-01 07:45] LABS: Bilirubin Total 0.4 mg/dL (0.2-1.0); Magnesium 2.1 mg/dL (1.6-2.4); Phosphorus 2.1 mg/dL (2.5-4.9); Potassium 3.7 mEq/L (3.5-5.1); Protein, Total 6.1 g/dL (6.4-8.2); Uric Acid 4.2 mg/dL (3.5-7.2)
[2023-03-01] MEDS: ASPIRIN 81 MG CHEWABLE TABLET PO SCH (10:08)
[2023-03-01] MEDS: INSULIN GLARGINE 100 UNIT/ML SQ SCH (10:08)
[2023-03-01] MEDS: INSULIN LISPRO 100 UNIT/ML SQ SCH ×3 (10:08→17:00)
[2023-03-01] MEDS: LACTULOSE 20 GM/30 ML UCUP PO SCH (10:09)
[2023-03-01] MEDS: Meropenem 1,000 MG in NA CHLORIDE 0.9% 100 ML IV SCH ×2 (10:09→21:39)
[2023-03-01] MEDS: ENOXAPARIN 40 MG/0.4 ML SQ SCH (10:09)
--- NOTE | 2023-03-01 12:30 | P.PN ---
Subjective Date of Service: 03/01/23 Chief Complaint: Pneumonia respiratory failure Patient is improving he is very alert responsive cooperating tolerating tube feeds on nasal cannula oxygen new complaints Review of Systems is unable to be obtained Physical Examination - Vital Signs Temperature: 98.8 F Blood Pressure: 101/79 Pulse: 89 Respirations: 23 Pulse Ox (%): 95 - Physical Exam General: Alert, Oriented x2, Cooperative Respiratory: Clear to auscultation bilaterally Cardiovascular: No edema, Regular rate/rhythm, Normal S1 S2 Gastrointestinal: Normal bowel sounds, Soft and benign - Studies Medications List Reviewed: Yes Assessment And Plan - Current Problems (Diagnosis) (1) Bilateral pneumonia Current Visit: Yes Status: Acute Plan: Patient admitted with bilateral pneumonia is clinically improving white count declined reevaluate for speech therapy consult able to eat and drink discontinue meropenem another 2 days physical therapy patient is saturation 97% on room air Qualifiers: Pneumonia type: due to unspecified organism Lung location: unspecified part of lung Qualified Code(s): J18.9 - Pneumonia, unspecified organism (2) Hypernatremia Current Visit: Yes Status: Acute Plan: Will DC Lasix and spironolactone water flushes renal function is slightly worse
[2023-03-01] MEDS ORDERED: METHYLPREDNISOLONE 40 MG INJ IV ONE (17:00)
--- NOTE | 2023-03-01 17:26 | RAD REPORT ---
EXAM DESCRIPTION: Bon Single View03/01/2023 5:05 pm CLINICAL HISTORY: Desaturation COMPARISON: February 2023 FINDINGS: Mild worsening in extensive bilateral pulmonary opacities. Heart is normal size IMPRESSION: Mild worsening extensive bilateral pulmonary opacities which may indicate pulmonary venkata a or pneumonia
[2023-03-01] MEDS: DEXTROSE 10%-WATER 500 ML IV SCH (19:00)
--- NOTE | 2023-03-01 21:45 | P.PN ---
Date of Service: 03/01/23 Vital Signs Temp Pulse Resp BP Pulse Ox 98.1 F 48 L 24 H 99/45 L 100 03/01/23 20:00 03/01/23 20:00 03/01/23 20:00 03/01/23 20:00 03/01/23 20:00 Medications Acetaminophen (Acetaminophen 500 Mg Tab) 500 mg PO Q6H PRN PRN Reason: pain/fever Albuterol Sulfate (Albuterol 2.5 Mg/3 Ml Neb Lillian) 2.5 mg NEB [id number] PRN PRN Reason: SHORTNESS OF BREATH Aspirin (Aspirin 81 Mg Chewable Tablet) 81 mg PO DAILY [facility] Last Admin: 03/01/23 10:08 Dose: 81 mg Enoxaparin Sodium (Enoxaparin 40 Mg/0.4 Ml) 40 mg SQ DAILY [facility] Last Admin: 03/01/23 10:09 Dose: 40 mg Enteral Nutritional Formula (Glucerna 1.2 Kb 1,000 Ml Bot) 1,000 ml RTH CONT [facility] Glucagon (Glucagon 1 Mg/Vial) 1 mg IM 1X PRN; Protocol PRN Reason: HYPOGLYCEMIA Home Med (Gabapentin [Gralise]) 300 mg PO DAILY PRN PRN Reason: neuropathy Home Med (Linaclotide [Linzess]) 72 mcg PO PRN [facility] Dextrose (Dextrose 10% Water Iv Soln.) 125 mls @ 0 mls/hr IV PRN PRN; Protocol PRN Reason: HYPOGLYCEMIA Last Admin: 02/22/23 09:33 Dose: 125 mls Meropenem 1,000 mg/ Sodium (Chloride) 100 mls @ 200 mls/hr IV Q12HR [facility] Last Admin: 03/01/23 10:09 Dose: 100 mls Dextrose (D10w 500 Ml Ivpb) 500 mls @ 50 mls/hr IV .Q10H [facility] Insulin Glargine (Insulin Glargine 100 Unit/Ml) 30 unit SQ DAILY [facility] Last Admin: 03/01/23 10:08 Dose: 30 unit Insulin Human Lispro (Insulin Lispro 100 Unit/Ml) 4 unit SQ TIDWM [facility] Last Admin: 03/01/23 17:00 Dose: Not Given Insulin Human Regular (Insulin Regular (Human) 100 Unit/Ml) 0 unit SQ Q6HR [facility]; Protocol Last Admin: 03/01/23 18:00 Dose: Not Given Ipratropium [place] (Ipratropium Brom 0.5mg/2.5ml) 0.5 mg NEB [id number] PRN PRN Reason: SHORTNESS OF BREATH Last Admin: 03/01/23 17:01 Dose: 0.5 mg Lactulose (Lactulose 20 Gm/30 Ml Ucup) 20 gm PO DAILY [facility] Last Admin: 03/01/23 10:09 Dose: 20 gm Ondansetron HCl (Ondansetron 4 Mg/2 Ml Vial) 4 mg IV Q8H PRN PRN Reason: NAUSEA / VOMITING Microbiology Results 02/14/23 12:35 Blood - Blood Aerobic Blood Culture - Final No growth in 5 days. 02/14/23 12:35 Blood - Blood Anaerobic Blood Culture - Final No growth in 5 days. 02/14/23 12:35 Blood - Blood Aerobic Blood Culture - Final No growth in 5 days. 02/14/23 12:35 Blood - Blood Anaerobic Blood Culture - Final No growth in 5 days. 02/14/23 10:33 Nasopharnyx Influenza Type A Antigen Screen - Final 02/14/23 10:33 Nasopharnyx Influenza Type B Antigen Screen - Final Assessment/ Plan: Nephrology No acute events overnight Limited IH/ ROS due to mental status. Vitals, medications, blood work and imaging reviewed in the chart. NAD. NCAT. MMM. Neck supple. Diminished. RRR. Abd ND. No C/C. LE Edema none. No rash. Awake. Normal speech. EXAM DESCRIPTION: RAD - Chest Single View - 02/22/2023 12:29 pm CLINICAL HISTORY: aspiration Chest pain. COMPARISON: Chest Single View dated 02/21/2023; Chest Single View dated 01/22; Chest Single View dated 02/18/2023; Abdomen 1 View (KUB) dated 02/17/2023 FINDINGS: Portable technique limits examination quality. Extensive bilateral pulmonary opacities are again noted, particularly on the left, since comparative study The heart is normal in size. Enteric tube is coiled in the stomach. IMPRESSION: Moderate progressive bilateral pulmonary opacities are seen since comparative study. LEFT VENTRICULAR WALL MOTION: NORMAL DOPPLER/COLOR FLOW: SEE BELOW COMMENTS: 1. NORMAL LEFT VENTRICULAR EJECTION FRACTION 55-60% WITH NORMAL WALL MOTION 2. GRADE I DIASTOLIC DYSFUNCTION 3. POOR WINDOWS Stage I JOHAN in the setting of diuresis and hypotension CKD IIIa with Proteinuria -No NSAIDs Hypernatremia -Continue free water flushes Hypokalemia -Replete prn Hypophosphatemia -Replete prn Diastolic CHF, A/C Pulmonary Edema -Hold furosemide -Daily weight DM II with CKD -RISS Anemia in chronic illness -Monitor H&H Slow transit constipation -Lactulose prn Sepsis/ Septic Shock Aspiration PNA Acute respiratory failure with hypoxia -Continue abx -Continue Oxygen supplementation -Bipap prn Hospitalist & Pulmonary notes reviewed
[2023-03-02 03:17] LABS: Absolute Lymphocytes (CBC) 0.7 K/uL (0.7-4.9); Hematocrit 26.7 % (39.6-49.0); Lymphocytes % 4.1 % (15.3-44.8); MCV 88.7 fL (80-100); MPV 10.2 fL (7.6-11.3); Platelets 185 thou/uL (152-406); RBC Red Blood Cell Count 3.01 M/uL (4.33-5.43)
[2023-03-02 03:24] LABS: Phosphorus 2.5 mg/dL (2.5-4.9); Potassium 3.6 mEq/L (3.5-5.1)
[2023-03-02] MEDS: DEXTROSE 10%-WATER 500 ML IV SCH ×2 (05:40→15:00)
[2023-03-02] MEDS: INSULIN REGULAR (HUMAN) 100 UNIT/ML SQ SCH ×3 (05:40→12:00)
[2023-03-02] MEDS ORDERED: D50W 25 GM/50 ML SYRINGE IV ONE (05:47)
[2023-03-02] MEDS ORDERED: D10W 125 ML IV PRN (05:55)
--- NOTE | 2023-03-02 07:35 | P.PN ---
Subjective Date of Service: 03/02/23 Chief Complaint: Pneumonia respiratory failure Moderate secretions, will add a scopolamine patch, head elevated with NG-tube feeding Physical Exam: Vitals: reviewed GEN: Alert, orientedx2, NAD HEENT: Normal conjunctiva, sclera anicteric CV: Regular rate & rhythm, no edema Pulm: Nonlabored respiraitons, clear bilaterally ABD: Soft, nontender, nondistended MSK: No joint tenderness Integumentary: No rashes Neuro: Normal speech, normal affect Review of Systems per HPI Physical Examination - Vital Signs Temperature: 97.3 F Blood Pressure: 107/60 Pulse: 88 Respirations: 22 Pulse Ox (%): 91 - Studies Medications List Reviewed: Yes Assessment And Plan - Plan Problem List: Severe Sepsis likely secondary to Mutlifocal Pneumonia or possible aspiration pna Acute respiratory failure with hypoxia Possible PE Mechanical Ground-Level Fall Hypotension JOHAN DM2 Pseudohypocalcemia, resolved Hypophosphotemia [place] Constipation Cachexia Plan: Severe Sepsis likely secondary to Mutlifocal Pneumonia or possible aspiration pna Acute respiratory failure with hypoxia Possible PE Blood cx (02/22): no growth Continue merrem (02/24-). previously on Vanc / zosyn BiPAP / NC as needed. Will wean as tolerated CXR shows Pulm edema continue IV lasix Pulm is following Will r/o PE with CT chest when medically stable. Leukocytosis Influenza AMB negative 03/02 Sputum culture, UA ordered elevated white count Blood culture negative UA Mechanical Ground-Level Fall Hypotension Continue PT/OT Fall precautions monitor BP. Keep MAP > 65. Low threshold for pressor. JOHAN Pseudohypocalcemia, resolved Hypophosphotemia [place]emia Nephrology following avoid nephrotoxins Replete electrolytes PRN and monitor. Continue to monitor renal function DM2 accuchek, SSI and ADA diet. Will hold metformin due to lactic acidosis. Will continue D5NS fluid for hypoglycemia protocol. Constipation Continue prn lactulose. Cachexia NGT in place. Continue tube feeding. Tread Builder consulted cm/ss looking into dispo options plan to discharge to senior care facility with hospice Lovenox DVT prophylaxis Discharge Plan: Snf - Code Status/Comfort Care Code Status: Full Code Critical Care: No Time Spent Managing PTS Care (In Minutes): 35
[2023-03-02] MEDS: INSULIN LISPRO 100 UNIT/ML SQ SCH ×3 (08:00→17:00)
[2023-03-02] MEDS: Meropenem 1,000 MG in NA CHLORIDE 0.9% 100 ML IV SCH ×2 (08:34→20:40)
[2023-03-02] MEDS: ASPIRIN 81 MG CHEWABLE TABLET PO SCH (08:35)
[2023-03-02] MEDS: ENOXAPARIN 40 MG/0.4 ML SQ SCH (08:38)
[2023-03-02] MEDS: LACTULOSE 20 GM/30 ML UCUP PO SCH (08:39)
[2023-03-02] MEDS: INSULIN GLARGINE 100 UNIT/ML SQ SCH (09:00)
[2023-03-02] MEDS ORDERED: POTASSIUM PHOS IN 0.9 % NACL 15 MMOL/250 ML BAG IV ONE (09:00)
--- NOTE | 2023-03-02 09:05 | P.DS ---
Admission Date: 02/14/23 Discharge Date: 03/03/23 Disposition: Discharge Condition: Reason for Admission: Pneumonia respiratory failure Brief History of Present Illness: 72-year-old gentleman came to the hospital with confusion and disorientation. Patient was apparently found underneath his bed and he was covered in urine and feces when the family arrived to check on him. They had not heard from him in a couple of days so they became concerned. Patient was brought into the emergency room, and when we saw him he was cleaned and interacting much more appropriately. Patient states he has been losing a lot of weight for the last 8 months. He stopped smoking and drinking about a year ago. He said he was having a hard time swallowing so he had given drinking. He did not feel like smoking because it was expensive so he stopped smoking around the same time. Patient's strength has been declining and he is not really able to get around well. He is still having a lot of trouble with swallowing. He was not able to clear his own sputum. Patient has some acute renal insufficiency which appears to be prerenal. Patient will be admitted to the hospital for further evaluation. Physical Exam: Vitals: reviewed GEN: Alert, orientedx2, NAD HEENT: Normal conjunctiva, sclera anicteric CV: Regular rate & rhythm, no edema Pulm: Nonlabored respiraitons, clear bilaterally ABD: Soft, nontender, nondistended MSK: No joint tenderness Integumentary: No rashes Neuro: Normal speech, normal affect Hospital Course: 72-year-old male patient presented with malnutrition, sepsis with possible aspiration pneumonia, fall. Was noted to have pleural effusions, groundglass opacities, shortness of breath, confusion from aspiration pneumonia. Was seen by pulmonary consult. Was treated with IV antibiotics, dietitian consult, tube feeding placed. PT OT consult, condition continued with generalized weakness, shortness of breath, failure to thrive. after extensive discussion with family to discharge with hospice. PROBLEM: Pneumonia, Acute hypoxic respiratory failure Malnutrition Failure to thrive GOAL: Clear understanding of disease process INSTRUCTIONS: Physician Discharge Instructions: -DC IV and DC home -Follow-up with PCP in 1 to 2 weeks -Please call Dr. Lawson at [phone] if any questions regarding hospital stay -Please call nursing station at [phone] if any nursing or medication questions -Return to the emergency room if symptoms worsen Diet: ADA, low sodium Activity: Fall precautions DME: Date Ordered: Name of Company: [employer] Services Needed: None Date or Referral: IMMUNIZATION Influenza Vaccine Indicated: Influenza Vaccine Given: Date Given: Pneumonia Vaccine Indicated: Pneumonia Vaccine Given: Date Given: Vital Signs/Physical Exam: Temp Pulse Resp BP Pulse Ox 97.3 F 92 H 22 H 105/50 L 92 03/02/23 08:00 03/02/23 08:00 03/02/23 08:00 03/02/23 08:00 03/02/23 08:00 Laboratory Data at Discharge: WBC 17.40 thou/uL (4.3-10.9) H 03/02/23 02:59 Hgb 8.8 g/dL (13.6-17.9) L 03/02/23 02:59 Hct 26.7 % (39.6-49.0) L 03/02/23 02:59 Plt Count 185 thou/uL (152-406) 03/02/23 02:59 Sodium 140 mEq/L (136-145) 03/02/23 02:59 Potassium 3.6 mEq/L (3.5-5.1) 03/02/23 02:59 BUN 38 mg/dL (7-18) H 03/02/23 02:59 Creatinine 1.20 mg/dL (0.70-1.30) 03/02/23 02:59 Glucose 122 mg/dL (74-106) H 03/02/23 02:59 Uric Acid 4.2 mg/dL (3.5-7.2) 03/01/23 07:11 Phosphorus 2.5 mg/dL (2.5-4.9) 03/02/23 02:59 Magnesium 2.1 mg/dL (1.6-2.4) 03/01/23 07:11 Total Bilirubin 0.4 mg/dL (0.2-1.0) 03/01/23 07:11 AST 22 U/L (15-37) 03/01/23 07:11 ALT 23 U/L (16-61) 03/01/23 07:11 Alkaline Phosphatase 103 U/L (45-117) 03/01/23 07:11 Lipase 16 U/L (13-75) 02/14/23 10:43 Home Medications: Gabapentin [Gralise] 300 mg PO PRN 12/06/16 Linaclotide [Linzess] 72 mcg PO PRN 12/06/16 Magnesium Oxide [Mag 0X*] 400 mg PO DAILY 12/06/16 Metformin HCl 500 mg PO BID 12/06/16 Aspirin Chewable [Aspirin Chewable*] 81 mg PO DAILY tab.chew 03/02/23 Insulin -Regular Human [Novolin -R*] See Protocol SQ Q6HR ml 03/02/23 Insulin Glargine,Hum.rec.anlog [Semglee] 30 unit SQ DAILY ml 03/02/23 Insulin Lispro [Humalog*] 4 unit SQ TIDWM ml 03/02/23 Jevity 1.2 Kb Liquid 1,000 ml FT DAILY bot 03/02/23 Lactulose [Cephulac*] 20 gm PO DAILY 03/02/23 Physician Discharge Instructions: 72-year-old male patient presented with malnutrition, sepsis with possible aspiration pneumonia, fall. Was noted to have pleural effusions, groundglass opa cities, shortness of breath, confusion from aspiration pneumonia. Was seen by pulmonary consult. Was treated with IV antibiotics, dietitian consult, tube feeding placed. PT OT consult, condition continued with generalized weakness, shortness of breath, failure to thrive. Plan to discharge with hospice. PROBLEM: Pneumonia, Acute hypoxic respiratory failure Malnutrition Failure to thrive GOAL: Clear understanding of disease process INSTRUCTIONS: Physician Discharge Instructions: -DC IV and DC home -Follow-up with PCP in 1 to 2 weeks -Please call Dr. Lawson at [phone] if any questions regarding hospital stay -Please call nursing station at [phone] if any nursing or medication questions -Return to the emergency room if symptoms worsen Diet: ADA, low sodium Activity: Fall precautions DME: Date Ordered: Name of Company: [employer] Services Needed: None Date or Referral: IMMUNIZATION Influenza Vaccine Indicated: Influenza Vaccine Given: Date Given: Pneumonia Vaccine Indicated: Pneumonia Vaccine Given: Date Given: Followup: NONE,NONE [Primary Care Provider] - Time spent managing pt's care (in minutes): 55
[2023-03-02] MEDS ORDERED: SCOPOLAMINE HYDROBROMIDE PATCH TD ONE (12:30)
[2023-03-02 16:34] VITALS: O2SAT 92
[2023-03-03 00:50] VITALS: TEMP 97.1
[2023-03-03] MEDS: DEXTROSE 10%-WATER 500 ML IV SCH (01:00)
[2023-03-03] MEDS: INSULIN REGULAR (HUMAN) 100 UNIT/ML SQ SCH ×2 (01:31)
[2023-03-03 01:47] VITALS: BP 120/99
--- NOTE | 2023-03-03 08:13 | P.PN ---
Date of Service: 03/02/23 Vital Signs Temp Pulse Resp BP Pulse Ox 97.1 F 100 H 17 120/99 H 93 03/03/23 00:00 03/03/23 01:46 03/03/23 00:00 03/03/23 01:46 03/03/23 00:00 Medications Acetaminophen (Acetaminophen 500 Mg Tab) 500 mg PO Q6H PRN PRN Reason: pain/fever Albuterol Sulfate (Albuterol 2.5 Mg/3 Ml Neb Lillian) 2.5 mg NEB [id number] PRN PRN Reason: SHORTNESS OF BREATH Aspirin (Aspirin 81 Mg Chewable Tablet) 81 mg PO DAILY [facility] Last Admin: 03/02/23 08:35 Dose: 81 mg Enoxaparin Sodium (Enoxaparin 40 Mg/0.4 Ml) 40 mg SQ DAILY [facility] Last Admin: 03/02/23 08:38 Dose: 40 mg Glucagon (Glucagon 1 Mg/Vial) 1 mg IM 1X PRN; Protocol PRN Reason: HYPOGLYCEMIA Home Med (Gabapentin [Gralise]) 300 mg PO DAILY PRN PRN Reason: neuropathy Home Med (Linaclotide [Linzess]) 72 mcg PO PRN [facility] Dextrose (Dextrose 10% Water Iv Soln.) 125 mls @ 0 mls/hr IV PRN PRN; Protocol PRN Reason: HYPOGLYCEMIA Last Admin: 02/22/23 09:33 Dose: 125 mls Dextrose (D10w 500 Ml Ivpb) 500 mls @ 50 mls/hr IV .Q10H [facility] Last Admin: 03/03/23 01:00 Dose: Not Given Dextrose (Dextrose 10% Water Iv Soln.) 125 mls @ 0 mls/hr IV PRN PRN; Protocol PRN Reason: HYPOGLYCEMIA Insulin Glargine (Insulin Glargine 100 Unit/Ml) 30 unit SQ DAILY [facility] Last Admin: 03/02/23 09:00 Dose: Not Given Insulin Human Lispro (Insulin Lispro 100 Unit/Ml) 4 unit SQ TIDWM [facility] Last Admin: 03/02/23 17:00 Dose: Not Given Insulin Human Regular (Insulin Regular (Human) 100 Unit/Ml) 0 unit SQ Q6HR [facility]; Protocol Last Admin: 03/03/23 00:00 Dose: 6 unit Ipratropium [place] (Ipratropium Brom 0.5mg/2.5ml) 0.5 mg NEB [id number] PRN PRN Reason: SHORTNESS OF BREATH Last Admin: 03/01/23 17:01 Dose: 0.5 mg Lactulose (Lactulose 20 Gm/30 Ml Ucup) 20 gm PO DAILY [facility] Last Admin: 03/02/23 08:39 Dose: 20 gm Ondansetron HCl (Ondansetron 4 Mg/2 Ml Vial) 4 mg IV Q8H PRN PRN Reason: NAUSEA / VOMITING Microbiology Results 02/14/23 12:35 Blood - Blood Aerobic Blood Culture - Final No growth in 5 days. 02/14/23 12:35 Blood - Blood Anaerobic Blood Culture - Final No growth in 5 days. 02/14/23 12:35 Blood - Blood Aerobic Blood Culture - Final No growth in 5 days. 02/14/23 12:35 Blood - Blood Anaerobic Blood Culture - Final No growth in 5 days. 02/14/23 10:33 Nasopharnyx Influenza Type A Antigen Screen - Final 02/14/23 10:33 Nasopharnyx Influenza Type B Antigen Screen - Final Assessment/ Plan: Nephrology No acute events overnight Limited IH/ ROS due to mental status. Vitals, medications, blood work and imaging reviewed in the chart. NAD. NCAT. MMM. Neck supple. Diminished. RRR. Abd ND. No C/C. LE Edema none. No rash. Awake. Normal speech. EXAM DESCRIPTION: RAD - Chest Single View - 02/22/2023 12:29 pm CLINICAL HISTORY: aspiration Chest pain. COMPARISON: Chest Single View dated 02/21/2023; Chest Single View dated 02/19/2023; Chest Single View dated 02/18/2023; Abdomen 1 View (KUB) dated 02/17/2023 FINDINGS: Portable technique limits examination quality. Extensive bilateral pulmonary opacities are again noted, particularly on the left, since comparative study The heart is normal in size. Enteric tube is coiled in the stomach. IMPRESSION: Moderate progressive bilateral pulmonary opacities are seen since comparative study. LEFT VENTRICULAR WALL MOTION: NORMAL DOPPLER/COLOR FLOW: SEE BELOW COMMENTS: 1. NORMAL LEFT VENTRICULAR EJECTION FRACTION 55-60% WITH NORMAL WALL MOTION 2. GRADE I DIASTOLIC DYSFUNCTION 3. POOR WINDOWS Stage I JOHAN in the setting of diuresis and hypotension CKD IIIa with Proteinuria -No NSAIDs Hypernatremia -Continue free water flushes Hypokalemia -Replete prn Hypophosphatemia -Replete prn Diastolic CHF, A/C Pulmonary Edema -Hold furosemide -Daily weight DM II with CKD -RISS Anemia in chronic illness -Monitor H&H Slow transit constipation -Lactulose prn Sepsis/ Septic Shock Aspiration PNA Acute respiratory failure with hypoxia -Continue abx -Continue Oxygen supplementation -Bipap prn Hospitalist & Pulmonary notes reviewed
[2023-03-03] MEDS ORDERED: JEVITY 1.2 CAL LIQUID 1,000 ML BOT FT SCH (09:00)
== END 2023-03-03 09:23 | disposition expired | DRG 871 ==
LOC: ER 10:18 → ERHOLD 17:41 → 2ND 20:54 → 3RD-ICU 02-22 11:30 → 2ND 02-28 23:46
PROVIDERS: ADMIT Hospitalist; ATTEND Hospitalist
PROC: 5A09557 Assistance with Respiratory Ventilation, Greater than 96 Consecutive Hours, Continuous Positive Airway Pressure (ICD-10-PCS; principal; 2023-02-22)
PROC: 4A033R1 Measurement of Arterial Saturation, Peripheral, Percutaneous Approach (ICD-10-PCS; 2023-02-22)
PROC: 0DH67UZ Insertion of Feeding Device into Stomach, Via Natural or Artificial Opening (ICD-10-PCS; 2023-02-22)
PROC: 0T9B70Z Drainage of Bladder with Drainage Device, Via Natural or Artificial Opening (ICD-10-PCS; 2023-02-24)
DX: A41.9 Sepsis, unspecified organism (principal); E43 Unspecified severe protein-calorie malnutrition; G93.41 Metabolic encephalopathy; J69.0 Pneumonitis due to inhalation of food and vomit; N17.0 Acute kidney failure with tubular necrosis; J96.01 Acute respiratory failure with hypoxia; I50.33 Acute on chronic diastolic (congestive) heart failure; R65.21 Severe sepsis with septic shock; Z68.1 Body mass index [BMI] 19.9 or less, adult; R64 Cachexia; E87.20 Acidosis, unspecified; E87.1 Hypo-osmolality and hyponatremia; E87.0 Hyperosmolality and hypernatremia; I13.0 Hypertensive heart and chronic kidney disease with heart failure and stage 1 through stage 4 chronic kidney disease, or unspecified chronic kidney disease; N18.31 Chronic kidney disease, stage 3a; E11.22 Type 2 diabetes mellitus with diabetic chronic kidney disease; E11.65 Type 2 diabetes mellitus with hyperglycemia; D63.1 Anemia in chronic kidney disease; E86.0 Dehydration; E87.6 Hypokalemia; K59.01 Slow transit constipation; E83.39 Other disorders of phosphorus metabolism; F17.210 Nicotine dependence, cigarettes, uncomplicated; R33.9 Retention of urine, unspecified; Z79.4 Long term (current) use of insulin; Z79.84 Long term (current) use of oral hypoglycemic drugs; Z11.52 Encounter for screening for COVID-19; Z79.82 Long term (current) use of aspirin; Z79.899 Other long term (current) drug therapy
CPT/HCPCS: 36415; 36600; 70450; 71045; 71250; 72125; 74018; 74176; 74230; 80048; 80053; 80069; 80202; 81001; 82043; 82306; 82378; 82550; 82570; 82805; 82947; 83605; 83690; 83735; 83880; 84100; 84153; 84156; 84439; 84443; 84550; 85025; 87040; 87635; 87804; 87811; 92610; 92611; 93005; 93306; 94640; 94660; 96361; 96365; 96366; 96368; 97110; 97116; 97161; 97530; 99285; J0696; J1650; J1815; J1940; J2185; J2270; J2543; J2920; J3411; J3480; J7030; J7040; J7050; J7613; J7644; J7799; P9047